=== PATIENT | female | born 1940 | race Caucasian/White ===

== ENCOUNTER 2018-02-09 19:09 | Inpatient (IN) | payer OTHER ==
--- OUTSIDE RECORDS SUMMARY | 2018-02-09 19:13 | XMS REPORT ---
:1940 [facility] [address] [place] [address] Care Team Providers Name Role Phone SERVANDO OAKES Unavailable Unavailable Problems This patient has no known problems. Allergies, Adverse Reactions, Alerts This patient has no known allergies or adverse reactions. Medications This patient has no known medications. Results Test Description Test Time Test Comments Text Results Atomic Results Result Comments POCT-GLUCOSE METER 2017-07-02 12:18:00 Test Item Value Reference Range Comments POC-GLUCOSE METER (BEAKER) (test 111 mg/dL 70-[address] [facility] [address] [place] [address] btsv=7003) [facility] [address] POCT-GLUCOSE [id number] 07:52:00 Test Item Value Reference Range Comments POC-GLUCOSE METER (BEAKER) 125 mg/dL 70-[address] [facility] [address] [place] [address] (test geof=2313) [facility] [address] BASIC METABOLIC [id number] 06:33:00 Test Item Value Reference Range Comments SODIUM (BEAKER) (test 137 meq/L 135-148 hckt=942) POTASSIUM (BEAKER) (test 4.3 meq/L 3.6-5.5 smwm=857) CHLORIDE (BEAKER) (test 102 meq/L 98-106 jlsh=495) CO2 (BEAKER) (test 28 meq/L 20-29 tgsl=302) BLOOD UREA NITROGEN 18 mg/dL 10-26 (BEAKER) (test mhjo=151) CREATININE (BEAKER) (test 0.80 mg/dL 0.50-1.20 kqho=564) GLUCOSE RANDOM (BEAKER) 121 mg/dL 70-110 (test ocre=931) CALCIUM (BEAKER) (test 7.9 mg/dL 8.5-10.5 vyhi=164) EGFR (BEAKER) (test 70 mL/min/1.73 sq m ESTIMATED GFR IS NOT twbr=1262) ACCURATE CREATININE CLEARANCE IN PREDICTING GLOMERULAR FILTRATION RATE. ESTIMATED GFR IS NOT APPLICABLE FOR DIALYSIS PATIENTS. [id number] 06:31:00 Test Item Value Reference Range Comments PHOSPHORUS (BEAKER) (test ugta=740) 2.3 mg/dL 2.5-4.5 CALCIUM, [id number] 06:27:00 Test Item Value Reference Range Comments CALCIUM IONIZED (BEAKER) (test diei=710) 1.11 mmol/L 1.12-1.27 PH, BLOOD (BEAKER) (test ixtq=8474) 7.35 [id number] 06:26:00 Test Item Value Reference Range Comments MAGNESIUM (BEAKER) (test swxy=779) 1.9 mg/dL 1.5-3.0 CBC W/PLT COUNT & AUTO [id number] 06:16:00 Test Item Value Reference Range Comments WHITE BLOOD CELL COUNT (BEAKER) (test axda=252) 8.5 K/ L 4.0-10.0 RED BLOOD CELL COUNT (BEAKER) (test iyjh=015) 2.82 M/ L 4.00-5.00 HEMOGLOBIN (BEAKER) (test lwkt=016) 8.0 GM/DL 12.0-15.0 HEMATOCRIT (BEAKER) (test ztoy=213) 25.2 % 36.0-45.0 MEAN CORPUSCULAR VOLUME (BEAKER) (test llzk=497) 89.5 fL 82.0-99.0 MEAN CORPUSCULAR HEMOGLOBIN (BEAKER) (test 28.3 pg 27.0-33.0 jyjs=190) MEAN CORPUSCULAR HEMOGLOBIN CONC (BEAKER) (test 31.6 GM/DL 32.0-36.0 zeah=231) RED CELL DISTRIBUTION WIDTH (BEAKER) (test 17.1 % 10.3-14.2 jgjq=996) PLATELET COUNT (BEAKER) (test lbff=332) 204 K/CU MM 150-430 MEAN PLATELET VOLUME (BEAKER) (test tlzj=257) 8.2 fL 6.5-10.5 NUCLEATED RED BLOOD CELLS (BEAKER) (test 0 /100 WBC 0-0 vlhf=787) NEUTROPHILS RELATIVE PERCENT (BEAKER) (test 72 % nqqw=538) LYMPHOCYTES RELATIVE PERCENT (BEAKER) (test 16 % krhu=324) MONOCYTES RELATIVE PERCENT (BEAKER) (test 10 % cwyn=399) EOSINOPHILS RELATIVE PERCENT (BEAKER) (test 2 % zwnm=643) BASOPHILS RELATIVE PERCENT (BEAKER) (test 0 % cmvy=874) NEUTROPHILS ABSOLUTE COUNT (BEAKER) (test 6.10 K/ L 1.80-8.00 kslv=334) LYMPHOCYTES ABSOLUTE COUNT (BEAKER) (test 1.30 K/ L 1.48-4.50 nszu=917) MONOCYTES ABSOLUTE COUNT (BEAKER) (test 0.90 K/ L 0.00-1.30 ybvn=089) EOSINOPHILS ABSOLUTE COUNT (BEAKER) (test 0.20 K/ L 0.00-0.50 fpnk=259) BASOPHILS ABSOLUTE COUNT (BEAKER) (test 0.00 K/ L 0.00-0.20 vuxv=035) POCT-GLUCOSE [id number] 20:23:00 Test Item Value Reference Range Comments POC-GLUCOSE METER (BEAKER) 178 mg/dL 70-110 TESTED AT [address] (test spmo=1598) [facility] [address] POCT-GLUCOSE [id number] 16:21:00 Test Item Value Reference Range Comments POC-GLUCOSE METER (BEAKER) 187 mg/dL 70-110 TESTED AT [address] (test ifmx=4323) [facility] [address] POCT-GLUCOSE [id number] 11:50:00 Test Item Value Reference Range Comments POC-GLUCOSE METER (BEAKER) 157 mg/dL 70-110 TESTED AT [address] (test zurd=4118) [facility] [address] POCT-GLUCOSE [id number] 07:41:00 Test Item Value Reference Range Comments POC-GLUCOSE METER (BEAKER) 132 mg/dL 70-110 TESTED AT [address] (test qisy=8020) [facility] [address] BASIC METABOLIC [id number] 06:37:00 Test Item Value Reference Range Comments SODIUM (BEAKER) (test 141 meq/L 135-148 pmbh=983) POTASSIUM (BEAKER) (test 3.4 meq/L 3.6-5.5 eqwa=334) CHLORIDE (BEAKER) (test 104 meq/L 98-106 cvba=338) CO2 (BEAKER) (test 28 meq/L 20-29 clzx=489) BLOOD UREA NITROGEN 20 mg/dL 10-26 (BEAKER) (test taga=868) CREATININE (BEAKER) (test 0.80 mg/dL 0.50-1.20 gqti=379) GLUCOSE RANDOM (BEAKER) 129 mg/dL 70-110 (test iqpi=006) CALCIUM (BEAKER) (test 8.1 mg/dL 8.5-10.5 jlec=188) EGFR (BEAKER) (test 70 mL/min/1.73 sq m ESTIMATED GFR IS NOT mjyf=1724) ACCURATE CREATININE CLEARANCE IN PREDICTING GLOMERULAR FILTRATION RATE. ESTIMATED GFR IS NOT APPLICABLE FOR DIALYSIS PATIENTS. [id number] 06:31:00 Test Item Value Reference Range Comments TRIGLYCERIDES (BEAKER) (test ooye=032) 108 mg/dL TRIGLYCERIDE REFERENCE RANGELow Risk <150Borderline Risk 150-199High Risk 200-499Very High Risk>=[id number] 06:30:00 Test Item Value Reference Range Comments MAGNESIUM (BEAKER) (test objc=276) 1.8 mg/dL 1.5-3.0 [id number] 05:53:00 Test Item Value Reference Range Comments PHOSPHORUS (BEAKER) (test ilrz=703) 2.4 mg/dL 2.5-4.5 CALCIUM, [id number] 05:48:00 Test Item Value Reference Range Comments CALCIUM IONIZED (BEAKER) (test kbdt=352) 1.11 mmol/L 1.12-1.27 PH, BLOOD (BEAKER) (test bpsi=2972) 7.37 CBC W/PLT COUNT & AUTO [id number] 05:45:00 Test Item Value Reference Range Comments WHITE BLOOD CELL COUNT (BEAKER) (test xgoa=752) 9.9 K/ L 4.0-10.0 RED BLOOD CELL COUNT (BEAKER) (test cjwr=543) 2.92 M/ L 4.00-5.00 HEMOGLOBIN (BEAKER) (test sdiy=260) 8.3 GM/DL 12.0-15.0 HEMATOCRIT (BEAKER) (test aevm=361) 26.2 % 36.0-45.0 MEAN CORPUSCULAR VOLUME (BEAKER) (test jkos=005) 89.6 fL 82.0-99.0 MEAN CORPUSCULAR HEMOGLOBIN (BEAKER) (test 28.3 pg 27.0-33.0 dpcu=633) MEAN CORPUSCULAR HEMOGLOBIN CONC (BEAKER) (test 31.6 GM/DL 32.0-36.0 kpkx=517) RED CELL DISTRIBUTION WIDTH (BEAKER) (test 17.2 % 10.3-14.2 laim=199) PLATELET COUNT (BEAKER) (test eybc=841) 236 K/CU MM 150-430 MEAN PLATELET VOLUME (BEAKER) (test qvrh=834) 7.8 fL 6.5-10.5 NUCLEATED RED BLOOD CELLS (BEAKER) (test 0 /100 WBC 0-0 vvnm=869) NEUTROPHILS RELATIVE PERCENT (BEAKER) (test 80 % yoog=433) LYMPHOCYTES RELATIVE PERCENT (BEAKER) (test 13 % olon=814) MONOCYTES RELATIVE PERCENT (BEAKER) (test 6 % pfhh=235) EOSINOPHILS RELATIVE PERCENT (BEAKER) (test 2 % ffwy=137) BASOPHILS RELATIVE PERCENT (BEAKER) (test 0 % latv=933) NEUTROPHILS ABSOLUTE COUNT (BEAKER) (test 7.90 K/ L 1.80-8.00 ugdq=033) LYMPHOCYTES ABSOLUTE COUNT (BEAKER) (test 1.30 K/ L 1.48-4.50 cpgm=187) MONOCYTES ABSOLUTE COUNT (BEAKER) (test 0.50 K/ L 0.00-1.30 jhna=482) EOSINOPHILS ABSOLUTE COUNT (BEAKER) (test 0.20 K/ L 0.00-0.50 noay=161) BASOPHILS ABSOLUTE COUNT (BEAKER) (test 0.00 K/ L 0.00-0.20 rnzw=059) POCT-GLUCOSE [id number] 21:07:00 Test Item Value Reference Range Comments POC-GLUCOSE METER (BEAKER) 124 mg/dL 70-[address] [facility] [address] [place] [address] (test twyo=1721) [address] [facility] [address] POCT-GLUCOSE [id number] 18:02:00 Test Item Value Reference Range Comments POC-GLUCOSE METER (BEAKER) 132 mg/dL 70-[address] [facility] [address] [facility] (test pprl=3219) [facility] [address] POCT-GLUCOSE [id number] 11:53:00 Test Item Value Reference Range Comments POC-GLUCOSE METER (BEAKER) 187 mg/dL 70-[address] [facility] [address] [facility] (test rmaw=3449) [facility] [address] BASIC METABOLIC [id number] 06:04:00 Test Item Value Reference Range Comments SODIUM (BEAKER) (test 144 meq/L 135-148 oidi=098) POTASSIUM (BEAKER) (test 3.2 meq/L 3.6-5.5 occg=693) CHLORIDE (BEAKER) (test 105 meq/L 98-106 wjqd=001) CO2 (BEAKER) (test 27 meq/L 20-29 zrwf=843) BLOOD UREA NITROGEN 26 mg/dL 10-26 (BEAKER) (test qgcr=744) CREATININE (BEAKER) (test 0.90 mg/dL 0.50-1.20 vdaf=610) GLUCOSE RANDOM (BEAKER) 231 mg/dL 70-110 (test vwgi=631) CALCIUM (BEAKER) (test 8.1 mg/dL 8.5-10.5 yztz=799) EGFR (BEAKER) (test 61 mL/min/1.73 sq m ESTIMATED GFR IS NOT njxv=0079) ACCURATE CREATININE CLEARANCE IN PREDICTING GLOMERULAR FILTRATION RATE. ESTIMATED GFR IS NOT APPLICABLE FOR DIALYSIS PATIENTS. [id number] 06:02:00 Test Item Value Reference Range Comments PHOSPHORUS (BEAKER) (test rqcr=866) 3.0 mg/dL 2.5-4.5 CBC W/PLT COUNT & AUTO [id number] 06:01:00 Test Item Value Reference Range Comments WHITE BLOOD CELL COUNT (BEAKER) (test evim=345) 11.7 K/ L 4.0-10.0 RED BLOOD CELL COUNT (BEAKER) (test tkue=304) 2.90 M/ L 4.00-5.00 HEMOGLOBIN (BEAKER) (test asrq=261) 8.2 GM/DL 12.0-15.0 HEMATOCRIT (BEAKER) (test qeki=315) 26.1 % 36.0-45.0 MEAN CORPUSCULAR VOLUME (BEAKER) (test iuts=213) 90.0 fL 82.0-99.0 MEAN CORPUSCULAR HEMOGLOBIN (BEAKER) (test 28.3 pg 27.0-33.0 ldql=795) MEAN CORPUSCULAR HEMOGLOBIN CONC (BEAKER) (test 31.5 GM/DL 32.0-36.0 ocpv=827) RED CELL DISTRIBUTION WIDTH (BEAKER) (test 16.8 % 10.3-14.2 qkfz=337) PLATELET COUNT (BEAKER) (test eget=872) 221 K/CU MM 150-430 MEAN PLATELET VOLUME (BEAKER) (test diel=850) 7.8 fL 6.5-10.5 NUCLEATED RED BLOOD CELLS (BEAKER) (test 0 /100 WBC 0-0 yqwr=209) NEUTROPHILS RELATIVE PERCENT (BEAKER) (test 89 % rmti=920) LYMPHOCYTES RELATIVE PERCENT (BEAKER) (test 9 % jwwq=733) MONOCYTES RELATIVE PERCENT (BEAKER) (test 1 % kpgc=895) EOSINOPHILS RELATIVE PERCENT (BEAKER) (test 1 % dndo=525) BASOPHILS RELATIVE PERCENT (BEAKER) (test 0 % xnnn=962) NEUTROPHILS ABSOLUTE COUNT (BEAKER) (test 10.50 K/ L 1.80-8.00 bntk=260) LYMPHOCYTES ABSOLUTE COUNT (BEAKER) (test 1.00 K/ L 1.48-4.50 vgva=742) MONOCYTES ABSOLUTE COUNT (BEAKER) (test 0.10 K/ L 0.00-1.30 tyxq=051) EOSINOPHILS ABSOLUTE COUNT (BEAKER) (test 0.10 K/ L 0.00-0.50 hvke=806) BASOPHILS ABSOLUTE COUNT (BEAKER) (test 0.00 K/ L 0.00-0.20 pwnb=280) [id number] 05:58:00 Test Item Value Reference Range Comments MAGNESIUM (BEAKER) (test ewdx=790) 2.2 mg/dL 1.5-3.0 CALCIUM, [id number] 05:49:00 Test Item Value Reference Range Comments CALCIUM IONIZED (BEAKER) (test kcka=336) 1.06 mmol/L 1.12-1.27 PH, BLOOD (BEAKER) (test ncmy=6033) 7.39 POCT-GLUCOSE [id number] 00:14:00 Test Item Value Reference Range Comments POC-GLUCOSE METER (BEAKER) 304 mg/dL 70-110 Notified TULIO HOBBS/TESTED AT [facility] (test gfts=7660) [address] [facility] [address] POCT-GLUCOSE [id number] 23:35:00 Test Item Value Reference Range Comments POC-GLUCOSE METER (BEAKER) 272 mg/dL 70-[address] [facility] [address] [facility] (test zjza=7117) [facility] [address] POCT-GLUCOSE [id number] 17:13:00 Test Item Value Reference Range Comments POC-GLUCOSE METER (BEAKER) 199 mg/dL 70-[address] [facility] [address] [facility] (test aunj=2539) [facility] [address] CBC W/PLT COUNT & AUTO [id number] 16:45:00 Test Item Value Reference Range Comments WHITE BLOOD CELL COUNT (BEAKER) (test eobl=414) 12.9 K/ L 4.0-10.0 RED BLOOD CELL COUNT (BEAKER) (test hfak=070) 2.83 M/ L 4.00-5.00 HEMOGLOBIN (BEAKER) (test eqxq=709) 8.0 GM/DL 12.0-15.0 HEMATOCRIT (BEAKER) (test oiuk=473) 25.2 % 36.0-45.0 MEAN CORPUSCULAR VOLUME (BEAKER) (test vamh=514) 89.3 fL 82.0-99.0 MEAN CORPUSCULAR HEMOGLOBIN (BEAKER) (test 28.4 pg 27.0-33.0 wxej=507) MEAN CORPUSCULAR HEMOGLOBIN CONC (BEAKER) (test 31.8 GM/DL 32.0-36.0 clbv=432) RED CELL DISTRIBUTION WIDTH (BEAKER) (test 16.5 % 10.3-14.2 obxn=506) PLATELET COUNT (BEAKER) (test niva=686) 234 K/CU MM 150-430 MEAN PLATELET VOLUME (BEAKER) (test ereo=189) 7.4 fL 6.5-10.5 NUCLEATED RED BLOOD CELLS (BEAKER) (test 0 /100 WBC 0-0 glyd=542) NEUTROPHILS RELATIVE PERCENT (BEAKER) (test 82 % ekwc=958) LYMPHOCYTES RELATIVE PERCENT (BEAKER) (test 10 % tzaw=996) MONOCYTES RELATIVE PERCENT (BEAKER) (test 8 % ueyp=969) EOSINOPHILS RELATIVE PERCENT (BEAKER) (test 0 % onlz=922) BASOPHILS RELATIVE PERCENT (BEAKER) (test 0 % fbzd=366) NEUTROPHILS ABSOLUTE COUNT (BEAKER) (test 10.60 K/ L 1.80-8.00 tobk=169) LYMPHOCYTES ABSOLUTE COUNT (BEAKER) (test 1.20 K/ L 1.48-4.50 xowh=394) MONOCYTES ABSOLUTE COUNT (BEAKER) (test 1.10 K/ L 0.00-1.30 wdqm=344) EOSINOPHILS ABSOLUTE COUNT (BEAKER) (test 0.00 K/ L 0.00-0.50 nbbi=579) BASOPHILS ABSOLUTE COUNT (BEAKER) (test 0.00 K/ L 0.00-0.20 dvdu=760) POCT-GLUCOSE [id number] 15:57:00 Test Item Value Reference Range Comments POC-GLUCOSE METER (BEAKER) 121 mg/dL 70-110 TESTED AT [address] (test tysi=6865) [facility] [address] POCT-GLUCOSE [id number] 14:46:00 Test Item Value Reference Range Comments POC-GLUCOSE METER (BEAKER) 103 mg/dL 70-110 TESTED AT [address] (test bxsm=5363) [facility] [address] POCT-GLUCOSE [id number] 13:15:00 Test Item Value Reference Range Comments POC-GLUCOSE METER (BEAKER) 151 mg/dL 70-110 TESTED AT [address] (test gujd=3155) [facility] [address] POCT-GLUCOSE [id number] 11:30:00 Test Item Value Reference Range Comments POC-GLUCOSE METER (BEAKER) 126 mg/dL 70-110 TESTED AT [address] (test gqnr=6268) [facility] [address] BLOOD GAS, [id number] 11:09:00 Test Item Value Reference Range Comments PH ARTERIAL (BEAKER) (test qocu=343) 7.52 7.35-7.45 PCO2 ARTERIAL (BEAKER) (test nzlx=494) 35 mmHg 35-45 PO2 ARTERIAL (BEAKER) (test gmgf=597) 92 mmHg 80-90 O2 SATURATION ARTERIAL (BEAKER) (test kulo=345) 97.6 % 96.0-97.0 HCO3 ARTERIAL (BEAKER) (test lunn=136) 28 mmol/L 21-29 BASE EXCESS ARTERIAL (BEAKER) (test oxby=952) 5.1 mmol/L -2.0-3.0 PATIENT TEMPERATURE (BEAKER) (test mevq=3091) 37.5 C FIO2 (BEAKER) (test qbjf=8167) 40.0 % POCT-GLUCOSE [id number] 09:44:00 Test Item Value Reference Range Comments POC-GLUCOSE METER (BEAKER) 134 mg/dL 70-[address] [facility] [address] [facility] (test nplp=4531) [address] [facility] [address] TISSUE [id number] 09:34:00Surgical Pathology Report Case: [id number] Authorizing Provider: Genaro Arrington MD Collected: 06/26/2017 1117 Ordering Location: [address] Med/Surg Received: 06/26/2017 1236 Pathologist: Andie Haines MD Specimen: Gallbladder GALLBLADDER, CHOLECYSTECTOMY: - ACUTE GANGRENOUS CHOLECYSTITIS - CHOLELITHIASIS Electronically signed by Andie Haines MD on 2016 at 9:34 AMMG/[id number] cholecystitis Gallbladder Specimen is received without fixative and designated as "gallbladder", consists of a cholecystectomy specimen (9.0 x 4.5 x 1.0 cm) that has been previously opened. In addition, multiple yellow-buitrago fibropurulent debris (9.0 x 9.0 x 1.5 cm) is also within the specimen container. The gallbladder mucosa is green-buitrago with purulent exudate on its surface. The gallbladder mucosa is green-buitrago with areas of white- buitrago purulent exudate. Fragments of gallstones are identified ranging in size from 0.2 cm. Technical Product Manager sections of the gallbladder mucosa, cystic duct and purulent exudate are submitted into A1. MG/ew Sections show gallbladder mucosa and wall with extensive acute inflammation and granulation tissue formation. Necrosis is identified throughout the entire thickness of the wall with surrounding pericholecystic fat necrosis. No dysplasia or malignancy is seen.POCT-GLUCOSE [id number] 07:20:00 Test Item Value Reference Range Comments POC-GLUCOSE METER (BEAKER) 144 mg/dL 70-[address] [facility] [address] [facility] (test ctnr=2289) [facility] [address] BASIC METABOLIC [id number] 05:33:00 Test Item Value Reference Range Comments SODIUM (BEAKER) (test 150 meq/L 135-148 cdzb=460) POTASSIUM (BEAKER) (test 3.0 meq/L 3.6-5.5 mmdm=329) CHLORIDE (BEAKER) (test 110 meq/L 98-106 dqua=278) CO2 (BEAKER) (test 26 meq/L 20-29 rocx=789) BLOOD UREA NITROGEN 34 mg/dL 10-26 (BEAKER) (test jylk=296) CREATININE (BEAKER) (test 1.00 mg/dL 0.50-1.20 mdnz=253) GLUCOSE RANDOM (BEAKER) 140 mg/dL 70-110 (test zkoj=236) CALCIUM (BEAKER) (test 8.2 mg/dL 8.5-10.5 eosp=846) EGFR (BEAKER) (test 54 mL/min/1.73 sq m ESTIMATED GFR IS NOT zkof=2493) ACCURATE CREATININE CLEARANCE IN PREDICTING GLOMERULAR FILTRATION RATE. ESTIMATED GFR IS NOT APPLICABLE FOR DIALYSIS PATIENTS. [id number] 05:23:00 Test Item Value Reference Range Comments PHOSPHORUS (BEAKER) (test gkcj=730) 2.0 mg/dL 2.5-4.5 POCT-GLUCOSE [id number] 05:21:00 Test Item Value Reference Range Comments POC-GLUCOSE METER (BEAKER) 150 mg/dL 70-110 TESTED AT [address] (test pcco=2518) [facility] [address] [id number] 05:20:00 Test Item Value Reference Range Comments POTASSIUM (BEAKER) (test erjv=868) 3.0 meq/L 3.6-5.5 [id number] 05:18:00 Test Item Value Reference Range Comments MAGNESIUM (BEAKER) (test gzdo=158) 2.0 mg/dL 1.5-3.0 CBC W/PLT COUNT & AUTO [id number] 05:05:00 Test Item Value Reference Range Comments WHITE BLOOD CELL COUNT (BEAKER) (test cxbl=382) 12.3 K/ L 4.0-10.0 RED BLOOD CELL COUNT (BEAKER) (test ylgs=174) 2.82 M/ L 4.00-5.00 HEMOGLOBIN (BEAKER) (test uhud=957) 7.9 GM/DL 12.0-15.0 HEMATOCRIT (BEAKER) (test mfos=326) 25.0 % 36.0-45.0 MEAN CORPUSCULAR VOLUME (BEAKER) (test ecpq=110) 88.5 fL 82.0-99.0 MEAN CORPUSCULAR HEMOGLOBIN (BEAKER) (test 28.2 pg 27.0-33.0 snsp=639) MEAN CORPUSCULAR HEMOGLOBIN CONC (BEAKER) (test 31.8 GM/DL 32.0-36.0 jibs=131) RED CELL DISTRIBUTION WIDTH (BEAKER) (test 16.4 % 10.3-14.2 pelb=110) PLATELET COUNT (BEAKER) (test ofwy=276) 225 K/CU MM 150-430 MEAN PLATELET VOLUME (BEAKER) (test mhsr=341) 8.2 fL 6.5-10.5 NUCLEATED RED BLOOD CELLS (BEAKER) (test 0 /100 WBC 0-0 vskm=441) NEUTROPHILS RELATIVE PERCENT (BEAKER) (test 83 % nttl=479) LYMPHOCYTES RELATIVE PERCENT (BEAKER) (test 10 % imic=312) MONOCYTES RELATIVE PERCENT (BEAKER) (test 8 % biei=536) EOSINOPHILS RELATIVE PERCENT (BEAKER) (test 0 % yjzs=682) BASOPHILS RELATIVE PERCENT (BEAKER) (test 0 % wtmz=185) NEUTROPHILS ABSOLUTE COUNT (BEAKER) (test 10.10 K/ L 1.80-8.00 vnmm=445) LYMPHOCYTES ABSOLUTE COUNT (BEAKER) (test 1.20 K/ L 1.48-4.50 dpre=385) MONOCYTES ABSOLUTE COUNT (BEAKER) (test 1.00 K/ L 0.00-1.30 kqye=181) EOSINOPHILS ABSOLUTE COUNT (BEAKER) (test 0.00 K/ L 0.00-0.50 misg=870) BASOPHILS ABSOLUTE COUNT (BEAKER) (test 0.00 K/ L 0.00-0.20 ozww=081) POCT-GLUCOSE [id number] 04:49:00 Test Item Value Reference Range Comments POC-GLUCOSE METER (BEAKER) 150 mg/dL 70-110 TESTED AT [address] (test wpzm=2998) [facility] [id number] BLOOD GAS, [id number] 04:09:00 Test Item Value Reference Range Comments PH ARTERIAL (BEAKER) (test vxbu=042) 7.55 7.35-7.45 PCO2 ARTERIAL (BEAKER) (test tvit=645) 37 mmHg 35-45 PO2 ARTERIAL (BEAKER) (test umbe=460) 70 mmHg 80-90 O2 SATURATION ARTERIAL (BEAKER) (test raap=974) 95.8 % 96.0-97.0 HCO3 ARTERIAL (BEAKER) (test seyg=791) 32 mmol/L 21-29 BASE EXCESS ARTERIAL (BEAKER) (test tupu=674) 8.7 mmol/L -2.0-3.0 PATIENT TEMPERATURE (BEAKER) (test luxc=8072) 37.0 C FIO2 (BEAKER) (test zmoi=1632) 40.0 % POCT-GLUCOSE [id number] 03:08:00 Test Item Value Reference Range Comments POC-GLUCOSE METER (BEAKER) 145 mg/dL 70-110 TESTED AT [address] (test cfnn=8207) [facility] [address] POCT-GLUCOSE [id number] 02:24:00 Test Item Value Reference Range Comments POC-GLUCOSE METER (BEAKER) 159 mg/dL 70-110 TESTED AT [address] (test jtzp=0307) [facility] [address] POCT-GLUCOSE [id number] 01:13:00 Test Item Value Reference Range Comments POC-GLUCOSE METER (BEAKER) 168 mg/dL 70-110 TESTED AT [address] (test ajjv=1526) [facility] [address] POCT-GLUCOSE [id number] 00:35:00 Test Item Value Reference Range Comments POC-GLUCOSE METER (BEAKER) 196 mg/dL 70-110 TESTED AT [address] (test bsgn=7939) [facility] [address] POCT-GLUCOSE [id number] 23:21:00 Test Item Value Reference Range Comments POC-GLUCOSE METER (BEAKER) 183 mg/dL 70-110 TESTED AT [address] (test vizt=7139) [facility] [address] POCT-GLUCOSE [id number] 22:03:00 Test Item Value Reference Range Comments POC-GLUCOSE METER (BEAKER) 185 mg/dL 70-110 TESTED AT [address] (test rkas=0022) [facility] [address] POCT-GLUCOSE [id number] 20:58:00 Test Item Value Reference Range Comments POC-GLUCOSE METER (BEAKER) 186 mg/dL 70-110 TESTED AT [address] (test rycr=0036) [facility] [address] POCT-GLUCOSE [id number] 20:22:00 Test Item Value Reference Range Comments POC-GLUCOSE METER (BEAKER) 145 mg/dL 70-110 TESTED AT [address] (test mptg=4845) [facility] [address] POCT-GLUCOSE [id number] 20:22:00 Test Item Value Reference Range Comments POC-GLUCOSE METER (BEAKER) 120 mg/dL 70-110 TESTED AT [address] (test fdpe=3222) [facility] [address] POCT-GLUCOSE [id number] 20:21:00 Test Item Value Reference Range Comments POC-GLUCOSE METER (BEAKER) 88 mg/dL 70-110 TESTED AT [address] (test nwpd=8102) [facility] [address] POCT-GLUCOSE [id number] 20:20:00 Test Item Value Reference Range Comments POC-GLUCOSE METER (BEAKER) 79 mg/dL 70-110 TESTED AT [address] (test dgju=8821) [facility] [address] POCT-GLUCOSE [id number] 20:20:00 Test Item Value Reference Range Comments POC-GLUCOSE METER (BEAKER) 144 mg/dL 70-110 TESTED AT [address] (test sxog=8829) [facility] [address] POCT-GLUCOSE [id number] 20:20:00 Test Item Value Reference Range Comments POC-GLUCOSE METER (BEAKER) 75 mg/dL 70-110 TESTED AT [address] (test cpsw=5238) [facility] [address] POCT-GLUCOSE [id number] 20:19:00 Test Item Value Reference Range Comments POC-GLUCOSE METER (BEAKER) 69 mg/dL 70-110 TESTED AT [address] (test ucye=0989) [facility] [address] POCT-GLUCOSE [id number] 20:19:00 Test Item Value Reference Range Comments POC-GLUCOSE METER (BEAKER) 84 mg/dL 70-110 TESTED AT [address] (test tqgz=5328) [facility] [address] POCT-GLUCOSE [id number] 20:18:00 Test Item Value Reference Range Comments POC-GLUCOSE METER (BEAKER) 161 mg/dL 70-110 TESTED AT [address] (test rekj=7268) [facility] [address] POCT-GLUCOSE [id number] 20:17:00 Test Item Value Reference Range Comments POC-GLUCOSE METER (BEAKER) 207 mg/dL 70-110 TESTED AT [address] (test mjns=9722) [facility] [address] POCT-GLUCOSE [id number] 20:14:00 Test Item Value Reference Range Comments POC-GLUCOSE METER (BEAKER) 177 mg/dL 70-110 TESTED AT [address] (test jvyi=4761) [facility] [address] POCT-GLUCOSE [id number] 20:13:00 Test Item Value Reference Range Comments POC-GLUCOSE METER (BEAKER) 163 mg/dL 70-110 TESTED AT [address] (test xbgo=5912) [facility] [address] POCT-GLUCOSE [id number] 20:13:00 Test Item Value Reference Range Comments POC-GLUCOSE METER (BEAKER) 174 mg/dL 70-110 TESTED AT [address] (test vzih=5795) [facility] [address] POCT-GLUCOSE [id number] 20:10:00 Test Item Value Reference Range Comments POC-GLUCOSE METER (BEAKER) 160 mg/dL 70-110 TESTED AT [address] (test djvd=5362) [facility] [address] POCT-GLUCOSE [id number] 20:04:00 Test Item Value Reference Range Comments POC-GLUCOSE METER (BEAKER) 107 mg/dL 70-110 TESTED AT [address] (test fmfd=1208) [facility] [address] POCT-GLUCOSE [id number] 20:03:00 Test Item Value Reference Range Comments POC-GLUCOSE METER (BEAKER) 79 mg/dL 70-110 TESTED AT [address] (test unvh=6830) [facility] [address] POCT-GLUCOSE [id number] 20:03:00 Test Item Value Reference Range Comments POC-GLUCOSE METER (BEAKER) 118 mg/dL 70-110 TESTED AT [address] (test mdui=6052) [facility] [address] POCT-GLUCOSE [id number] 20:02:00 Test Item Value Reference Range Comments POC-GLUCOSE METER (BEAKER) 148 mg/dL 70-110 TESTED AT [address] (test rhfm=9686) [facility] [address] POCT-GLUCOSE [id number] 20:02:00 Test Item Value Reference Range Comments POC-GLUCOSE METER (BEAKER) 143 mg/dL 70-110 TESTED AT [address] (test ykhj=3681) [facility] [address] POCT-GLUCOSE [id number] 20:01:00 Test Item Value Reference Range Comments POC-GLUCOSE METER (BEAKER) 142 mg/dL 70-110 TESTED AT [address] (test ruzu=0686) [facility] [address] POCT-GLUCOSE [id number] 20:01:00 Test Item Value Reference Range Comments POC-GLUCOSE METER (BEAKER) 93 mg/dL 70-110 TESTED AT [address] (test shck=1902) [facility] [address] POCT-GLUCOSE [id number] 20:01:00 Test Item Value Reference Range Comments POC-GLUCOSE METER (BEAKER) 87 mg/dL 70-110 TESTED AT [address] (test gkoq=0340) [facility] [address] POCT-GLUCOSE [id number] 19:59:00 Test Item Value Reference Range Comments POC-GLUCOSE METER (BEAKER) 100 mg/dL 70-[address] [facility] [address] [facility] (test pdid=2275) [facility] [address] POCT-GLUCOSE [id number] 19:58:00 Test Item Value Reference Range Comments POC-GLUCOSE METER (BEAKER) 131 mg/dL 70-[address] [facility] [address] [place] [address] (test rqsk=3533) [facility] [address] POCT-GLUCOSE [id number] 19:57:00 Test Item Value Reference Range Comments POC-GLUCOSE METER (BEAKER) 138 mg/dL 70-[address] [facility] [address] [place] [address] (test fkks=8788) [facility] [address] POCT-GLUCOSE [id number] 19:55:00 Test Item Value Reference Range Comments POC-GLUCOSE METER (BEAKER) 149 mg/dL 70-[address] [facility] [address] [place] [address] (test dfpe=8274) [facility] [address] POCT-GLUCOSE [id number] 19:55:00 Test Item Value Reference Range Comments POC-GLUCOSE METER (BEAKER) 154 mg/dL 70-[address] [facility] [address] [place] [address] (test smuq=2394) [facility] [address] SPUTUM CULTURE + GRAM [id number] 10:30:00 Test Item Value Reference Range Comments CULTURE (BEAKER) (test 2+ Normal respiratory albina khcs=1530) present GRAM STAIN RESULT (BEAKER) 2+ White blood cells seen (test wgmd=9933) GRAM STAIN RESULT (BEAKER) 0-5 epithelial cells (test ibid=31617) GRAM STAIN RESULT (BEAKER) 1+ gram positive cocci in (test hwnm=91095) chains, pairs and clusters BLOOD GAS, [id number] 06:36:00 Test Item Value Reference Range Comments PH ARTERIAL (BEAKER) (test sfmw=995) 7.54 7.35-7.45 PCO2 ARTERIAL (BEAKER) (test hfkq=860) 32 mm Hg 35-45 PO2 ARTERIAL (BEAKER) (test stat=824) 123 mm Hg 80-90 O2 SATURATION ARTERIAL (BEAKER) (test frxn=234) 98.8 % 96.0-97.0 HCO3 ARTERIAL (BEAKER) (test rujq=884) 26 mmol/L 21-29 BASE EXCESS ARTERIAL (BEAKER) (test kzpl=673) 3.8 mmol/L -2.0-3.0 CBC W/PLT COUNT & AUTO [id number] 06:16:00 Test Item Value Reference Range Comments WHITE BLOOD CELL COUNT (BEAKER) (test ceyb=927) 14.8 K/ L 4.0-10.0 RED BLOOD CELL COUNT (BEAKER) (test mfcp=502) 2.73 M/ L 4.00-5.00 HEMOGLOBIN (BEAKER) (test jocn=977) 7.7 GM/DL 12.0-15.0 HEMATOCRIT (BEAKER) (test amvw=316) 23.9 % 36.0-45.0 MEAN CORPUSCULAR VOLUME (BEAKER) (test gwib=884) 87.5 fL 82.0-99.0 MEAN CORPUSCULAR HEMOGLOBIN (BEAKER) (test 28.2 pg 27.0-33.0 jelf=457) MEAN CORPUSCULAR HEMOGLOBIN CONC (BEAKER) (test 32.3 GM/DL 32.0-36.0 ajyf=847) RED CELL DISTRIBUTION WIDTH (BEAKER) (test 15.7 % 10.3-14.2 myop=214) PLATELET COUNT (BEAKER) (test tnkw=131) 227 K/CU MM 150-430 MEAN PLATELET VOLUME (BEAKER) (test ubyp=790) 7.8 fL 6.5-10.5 NUCLEATED RED BLOOD CELLS (BEAKER) (test 0 /100 WBC 0-0 lnya=499) NEUTROPHILS RELATIVE PERCENT (BEAKER) (test 85 % mebr=819) LYMPHOCYTES RELATIVE PERCENT (BEAKER) (test 7 % twnk=385) MONOCYTES RELATIVE PERCENT (BEAKER) (test 8 % lvpo=680) EOSINOPHILS RELATIVE PERCENT (BEAKER) (test 0 % pxid=947) BASOPHILS RELATIVE PERCENT (BEAKER) (test 0 % kzmy=641) NEUTROPHILS ABSOLUTE COUNT (BEAKER) (test 12.60 K/ L 1.80-8.00 xujf=902) LYMPHOCYTES ABSOLUTE COUNT (BEAKER) (test 1.00 K/ L 1.48-4.50 rijg=622) MONOCYTES ABSOLUTE COUNT (BEAKER) (test 1.20 K/ L 0.00-1.30 tdwk=291) EOSINOPHILS ABSOLUTE COUNT (BEAKER) (test 0.00 K/ L 0.00-0.50 ppti=230) BASOPHILS ABSOLUTE COUNT (BEAKER) (test 0.00 K/ L 0.00-0.20 jeuf=609) [id number] 06:04:00 Test Item Value Reference Range Comments MAGNESIUM (BEAKER) (test qiai=969) 1.9 mg/dL 1.5-3.0 [id number] 06:04:00 Test Item Value Reference Range Comments PHOSPHORUS (BEAKER) (test yrve=254) 2.1 mg/dL 2.5-4.5 BASIC METABOLIC [id number] 06:03:00 Test Item Value Reference Range Comments SODIUM (BEAKER) (test 146 meq/L 135-148 yxig=786) POTASSIUM (BEAKER) (test 3.6 meq/L 3.6-5.5 dkqd=411) CHLORIDE (BEAKER) (test 107 meq/L 98-106 lztg=089) CO2 (BEAKER) (test 26 meq/L 20-29 xuxh=096) BLOOD UREA NITROGEN 41 mg/dL 10-26 (BEAKER) (test iuvq=463) CREATININE (BEAKER) (test 1.10 mg/dL 0.50-1.20 heqz=020) GLUCOSE RANDOM (BEAKER) 64 mg/dL 70-110 (test abmd=560) CALCIUM (BEAKER) (test 8.4 mg/dL 8.5-10.5 kudd=665) EGFR (BEAKER) (test 48 mL/min/1.73 sq m ESTIMATED GFR IS NOT sary=2584) ACCURATE CREATININE CLEARANCE IN PREDICTING GLOMERULAR FILTRATION RATE. ESTIMATED GFR IS NOT APPLICABLE FOR DIALYSIS PATIENTS. POCT-GLUCOSE [id number] 14:08:00 Test Item Value Reference Range Comments POC-GLUCOSE METER (BEAKER) 91 mg/dL 70-110 TESTED AT [address] (test wbgi=1217) [facility] [address] POCT-GLUCOSE [id number] 13:06:00 Test Item Value Reference Range Comments POC-GLUCOSE METER (BEAKER) 99 mg/dL 70-110 TESTED AT [address] (test ahbp=3573) [facility] [address] POCT-GLUCOSE [id number] 12:06:00 Test Item Value Reference Range Comments POC-GLUCOSE METER (BEAKER) 120 mg/dL 70-110 TESTED AT [address] (test pjaj=9070) [facility] [address] POCT-GLUCOSE [id number] 11:10:00 Test Item Value Reference Range Comments POC-GLUCOSE METER (BEAKER) 130 mg/dL 70-110 TESTED AT [address] (test yrbe=7721) [facility] [address] POCT-GLUCOSE [id number] 10:10:00 Test Item Value Reference Range Comments POC-GLUCOSE METER (BEAKER) 127 mg/dL 70-110 TESTED AT [address] (test zddw=1766) [facility] [address] POCT-GLUCOSE [id number] 09:11:00 Test Item Value Reference Range Comments POC-GLUCOSE METER (BEAKER) 138 mg/dL 70-110 TESTED AT [address] (test tpvh=6464) [facility] [address] POCT-GLUCOSE [id number] 08:07:00 Test Item Value Reference Range Comments POC-GLUCOSE METER (BEAKER) 154 mg/dL 70-110 TESTED AT [address] (test wypy=9033) [facility] [address] POCT-GLUCOSE [id number] 07:03:00 Test Item Value Reference Range Comments POC-GLUCOSE METER (BEAKER) 166 mg/dL 70-110 TESTED AT [address] (test ttyl=5755) [facility] [address] BASIC METABOLIC [id number] 06:43:00 Test Item Value Reference Range Comments SODIUM (BEAKER) (test 142 meq/L 135-148 awla=747) POTASSIUM (BEAKER) (test 4.0 meq/L 3.6-5.5 lcku=780) CHLORIDE (BEAKER) (test 103 meq/L 98-106 slkr=735) CO2 (BEAKER) (test 24 meq/L 20-29 atld=772) BLOOD UREA NITROGEN 44 mg/dL 10-26 (BEAKER) (test nqmt=778) CREATININE (BEAKER) (test 1.20 mg/dL 0.50-1.20 yfvd=212) GLUCOSE RANDOM (BEAKER) 157 mg/dL 70-110 (test qezn=316) CALCIUM (BEAKER) (test 8.3 mg/dL 8.5-10.5 kcbc=853) EGFR (BEAKER) (test 44 mL/min/1.73 sq m ESTIMATED GFR IS NOT uutp=1622) ACCURATE CREATININE CLEARANCE IN PREDICTING GLOMERULAR FILTRATION RATE. ESTIMATED GFR IS NOT APPLICABLE FOR DIALYSIS PATIENTS. BLOOD GAS, [id number] 06:03:00 Test Item Value Reference Range Comments PH ARTERIAL (BEAKER) (test diwg=014) 7.42 7.35-7.45 PCO2 ARTERIAL (BEAKER) (test xdsn=720) 47 mmHg 35-45 PO2 ARTERIAL (BEAKER) (test zgib=554) 115 mmHg 80-90 O2 SATURATION ARTERIAL (BEAKER) (test plyg=529) 98.2 % 96.0-97.0 HCO3 ARTERIAL (BEAKER) (test ijii=138) 29 mmol/L 21-29 BASE EXCESS ARTERIAL (BEAKER) (test uuxg=172) 4.2 mmol/L -2.0-3.0 PATIENT TEMPERATURE (BEAKER) (test zzos=1690) 37.3 C FIO2 (BEAKER) (test nrvm=8718) 100.0 % CBC W/PLT COUNT & AUTO [id number] 05:57:00 Test Item Value Reference Range Comments WHITE BLOOD CELL COUNT (BEAKER) (test vceu=080) 23.7 K/ L 4.0-10.0 RED BLOOD CELL COUNT (BEAKER) (test lzsk=811) 2.71 M/ L 4.00-5.00 HEMOGLOBIN (BEAKER) (test qerc=612) 7.5 GM/DL 12.0-15.0 HEMATOCRIT (BEAKER) (test ygjg=700) 23.7 % 36.0-45.0 MEAN CORPUSCULAR VOLUME (BEAKER) (test aowm=911) 87.5 fL 82.0-99.0 MEAN CORPUSCULAR HEMOGLOBIN (BEAKER) (test 27.6 pg 27.0-33.0 ulcl=228) MEAN CORPUSCULAR HEMOGLOBIN CONC (BEAKER) (test 31.6 GM/DL 32.0-36.0 fqow=858) RED CELL DISTRIBUTION WIDTH (BEAKER) (test 16.0 % 10.3-14.2 swfj=931) PLATELET COUNT (BEAKER) (test zjnl=320) 421 K/CU MM 150-430 MEAN PLATELET VOLUME (BEAKER) (test nrlk=816) 6.7 fL 6.5-10.5 NUCLEATED RED BLOOD CELLS (BEAKER) (test 0 /100 WBC 0-0 zrib=410) NEUTROPHILS RELATIVE PERCENT (BEAKER) (test 92 % erjw=575) LYMPHOCYTES RELATIVE PERCENT (BEAKER) (test 4 % pjzk=922) MONOCYTES RELATIVE PERCENT (BEAKER) (test 4 % shta=127) EOSINOPHILS RELATIVE PERCENT (BEAKER) (test 0 % dtvv=659) BASOPHILS RELATIVE PERCENT (BEAKER) (test 0 % tcdl=793) NEUTROPHILS ABSOLUTE COUNT (BEAKER) (test 21.80 K/ L 1.80-8.00 wtoj=657) LYMPHOCYTES ABSOLUTE COUNT (BEAKER) (test 1.00 K/ L 1.48-4.50 nash=134) MONOCYTES ABSOLUTE COUNT (BEAKER) (test 0.90 K/ L 0.00-1.30 knai=833) EOSINOPHILS ABSOLUTE COUNT (BEAKER) (test 0.00 K/ L 0.00-0.50 zyuz=120) BASOPHILS ABSOLUTE COUNT (BEAKER) (test 0.10 K/ L 0.00-0.20 hohc=877) (MANUAL DIFFERENTIAL)2017-06-27 05:57:00 Test Item Value Reference Range Comments NEUTROPHILS - REL (DIFF) (BEAKER) (test 89 % oijo=3030) LYMPHOCYTES - REL (DIFF) (BEAKER) (test 5 % xuym=0837) MONOCYTES - REL (DIFF) (BEAKER) (test lgfe=2585) 4 % BANDS - REL (DIFF) (BEAKER) (test ckxw=2746) 2 % 0-10 NEUTROPHILS - ABS (DIFF) (BEAKER) (test 21.09 K/ L 1.80-8.00 yezz=3593) LYMPHOCYTES - ABS (DIFF) (BEAKER) (test 1.19 K/ L 1.48-4.50 csok=7890) MONOCYTES - ABS (DIFF) (BEAKER) (test qmyx=7175) 0.95 K/ L 0.00-1.30 BANDS-ABS (DIFF) (BEAKER) (test qdbr=5320) 0.5 K/ L 0.0-0.8 TOTAL COUNTED (BEAKER) (test etuy=0821) 100 BANDS + SEGMENTED NEUTROPHILS (BEAKER) (test 21.57 omrv=0849) WBC MORPHOLOGY (BEAKER) (test wsvd=989) Normal PLT MORPHOLOGY (BEAKER) (test cump=698) Normal ANISOCYTOSIS (BEAKER) (test vzas=686) 1+ few HYPOCHROMIA (BEAKER) (test wgmg=258) 2+ moderate B-TYPE NATRIURETIC FACTOR (BNP)2017-06-27 05:42:00 Test Item Value Reference Range Comments B-TYPE NATRIURETIC PEPTIDE (BEAKER) (test 159 pg/mL 0-100 tley=761) [id number] 05:34:00 Test Item Value Reference Range Comments PHOSPHORUS (BEAKER) (test cyzi=115) 3.1 mg/dL 2.5-4.5 LACTIC ACID, VENOUS, WHOLE [id number] 05:31:00 Test Item Value Reference Range Comments LACTATE BLOOD VENOUS (2) (BEAKER) (test 0.9 mmol/L 0.5-2.2 aufk=6639) Effective 03/19/2016: Units/Reference Range ChangeNew: 0.5-2.2 mmol/L Previous: 5 -18 mg/[id number] 05:29:00 Test Item Value Reference Range Comments MAGNESIUM (BEAKER) (test vasb=999) 1.9 mg/dL 1.5-3.0 POCT-GLUCOSE [id number] 05:03:00 Test Item Value Reference Range Comments POC-GLUCOSE METER (BEAKER) 196 mg/dL 70-110 TESTED AT [address] (test raiw=0403) [facility] [address] POCT-GLUCOSE [id number] 04:03:00 Test Item Value Reference Range Comments POC-GLUCOSE METER (BEAKER) 187 mg/dL 70-110 TESTED AT [address] (test xwdr=9552) [facility] [address] POCT-GLUCOSE [id number] 03:05:00 Test Item Value Reference Range Comments POC-GLUCOSE METER (BEAKER) 174 mg/dL 70-110 TESTED AT [address] (test rppv=6774) [place] [id number] POCT-GLUCOSE [id number] 02:05:00 Test Item Value Reference Range Comments POC-GLUCOSE METER (BEAKER) 201 mg/dL 70-110 TESTED AT [address] (test spxq=1917) [facility] [address] POCT-GLUCOSE [id number] 01:04:00 Test Item Value Reference Range Comments POC-GLUCOSE METER (BEAKER) 196 mg/dL 70-110 TESTED AT [address] (test mbpu=2248) [facility] [address] POCT-GLUCOSE [id number] 00:10:00 Test Item Value Reference Range Comments POC-GLUCOSE METER (BEAKER) 228 mg/dL 70-110 TESTED AT [address] (test qgae=0189) [facility] [address] POCT-GLUCOSE [id number] 23:07:00 Test Item Value Reference Range Comments POC-GLUCOSE METER (BEAKER) 176 mg/dL 70-110 TESTED AT [address] (test kdkd=6438) [facility] [address] POCT-GLUCOSE [id number] 22:17:00 Test Item Value Reference Range Comments POC-GLUCOSE METER (BEAKER) 156 mg/dL 70-110 TESTED AT [address] (test kzqu=8476) [facility] [address] POCT-GLUCOSE [id number] 21:05:00 Test Item Value Reference Range Comments POC-GLUCOSE METER (BEAKER) 203 mg/dL 70-110 TESTED AT [address] (test mmxd=7068) [facility] [address] POCT-GLUCOSE [id number] 21:05:00 Test Item Value Reference Range Comments POC-GLUCOSE METER (BEAKER) 207 mg/dL 70-110 TESTED AT [address] (test fbpk=9105) [facility] [address] POCT-GLUCOSE [id number] 18:14:00 Test Item Value Reference Range Comments POC-GLUCOSE METER (BEAKER) 232 mg/dL 70-110 TESTED AT [address] (test zdmr=8880) [facility] [address] LACTIC ACID, VENOUS, WHOLE [id number] 16:55:00 Test Item Value Reference Range Comments LACTATE BLOOD VENOUS (2) (BEAKER) (test 2.6 mmol/L 0.5-2.2 uqak=5965) Effective 03/19/2016: Units/Reference Range ChangeNew: 0.5-2.2 mmol/L Previous: 5 -18 mg/dLPROTHROMBIN [id number] 16:54:00 Test Item Value Reference Range Comments PROTIME (BEAKER) (test rfmy=935) 16.3 seconds 9.3-12.0 INR (BEAKER) (test gief=294) 1.5 <=5.9 RECOMMENDED COUMADIN/WARFARIN INR THERAPY RANGESSTANDARD DOSE: 2.0 - 3.0 Includes: PROPHYLAXIS forvenous thrombosis, systemic embolization; TREATMENT for venous thrombosis and/or pulmonary embolus.HIGH RISK: Target INR is 2.5-3.5 for patients with mechanical heart valves.POCT-GLUCOSE [id number] 16:46:00 Test Item Value Reference Range Comments POC-GLUCOSE METER (BEAKER) 309 mg/dL 70-110 TESTED AT [address] (test hdjg=0381) [address] [facility] [address] [id number] 14:50:00 Test Item Value Reference Range Comments MAGNESIUM (BEAKER) (test emsg=603) 2.1 mg/dL 1.5-3.0 COMPREHENSIVE METABOLIC [id number] 14:44:00 Test Item Value Reference Range Comments TOTAL PROTEIN (BEAKER) 5.5 gm/dL 6.0-8.5 (test uuma=546) ALBUMIN (BEAKER) (test 2.5 g/dL 3.5-5.0 fvch=0707) ALKALINE PHOSPHATASE 128 U/L 30-115 (BEAKER) (test iqgs=855) BILIRUBIN TOTAL (BEAKER) 0.6 mg/dL 0.1-1.2 (test wumb=318) SODIUM (BEAKER) (test 130 meq/L 135-148 cuxy=735) POTASSIUM (BEAKER) (test 3.9 meq/L 3.6-5.5 mljv=076) CHLORIDE (BEAKER) (test 95 meq/L 98-106 hbye=693) CO2 (BEAKER) (test 28 meq/L 20-29 kxoe=674) BLOOD UREA NITROGEN 40 mg/dL 10-26 (BEAKER) (test apbj=650) CREATININE (BEAKER) (test 1.10 mg/dL 0.50-1.20 wdku=394) GLUCOSE RANDOM (BEAKER) 446 mg/dL 70-110 (test dnmb=982) CALCIUM (BEAKER) (test 8.5 mg/dL 8.5-10.5 gxba=172) AST (SGOT) (BEAKER) (test 50 U/L 5-40 sngm=088) ALT (SGPT) (BEAKER) (test 45 U/L 5-50 rwjg=909) EGFR (BEAKER) (test 48 mL/min/1.73 sq m ESTIMATED GFR IS NOT lnjg=6946) ACCURATE CREATININE CLEARANCE IN PREDICTING GLOMERULAR FILTRATION RATE. ESTIMATED GFR IS NOT APPLICABLE FOR DIALYSIS PATIENTS. [id number] 14:24:00 Test Item Value Reference Range Comments PHOSPHORUS (BEAKER) (test gqad=118) 2.7 mg/dL 2.5-4.5 BLOOD GAS, [id number] 14:07:00 Test Item Value Reference Range Comments PH ARTERIAL (BEAKER) (test igyv=047) 7.41 7.35-7.45 PCO2 ARTERIAL (BEAKER) (test dewl=820) 49 mmHg 35-45 PO2 ARTERIAL (BEAKER) (test utzn=166) 70 mmHg 80-90 O2 SATURATION ARTERIAL (BEAKER) (test vbck=243) 93.9 % 96.0-97.0 HCO3 ARTERIAL (BEAKER) (test pneg=223) 30 mmol/L 21-29 BASE EXCESS ARTERIAL (BEAKER) (test eacw=427) 4.8 mmol/L -2.0-3.0 PATIENT TEMPERATURE (BEAKER) (test culx=8982) 37.0 C FIO2 (BEAKER) (test ikrx=7775) 50.0 % POCT-GLUCOSE [id number] 14:02:00 Test Item Value Reference Range Comments POC-GLUCOSE METER (BEAKER) 336 mg/dL 70-110 TESTED AT [address] (test ztav=0310) [address] [facility] [address] POCT-GLUCOSE [id number] 13:38:00 Test Item Value Reference Range Comments POC-GLUCOSE METER (BEAKER) 363 mg/dL 70-[address] [facility] [address] [place] (test mlvy=6922) [address] [facility] [address] CBC W/PLT COUNT & AUTO [id number] 13:18:00 Test Item Value Reference Range Comments WHITE BLOOD CELL COUNT (BEAKER) (test bzwl=607) 10.5 K/ L 4.0-10.0 RED BLOOD CELL COUNT (BEAKER) (test eagk=419) 3.22 M/ L 4.00-5.00 HEMOGLOBIN (BEAKER) (test djam=135) 8.9 GM/DL 12.0-15.0 HEMATOCRIT (BEAKER) (test vywk=680) 27.7 % 36.0-45.0 MEAN CORPUSCULAR VOLUME (BEAKER) (test bcel=292) 86.2 fL 82.0-99.0 MEAN CORPUSCULAR HEMOGLOBIN (BEAKER) (test 27.5 pg 27.0-33.0 ffqg=451) MEAN CORPUSCULAR HEMOGLOBIN CONC (BEAKER) (test 31.9 GM/DL 32.0-36.0 krsj=615) RED CELL DISTRIBUTION WIDTH (BEAKER) (test 15.6 % 10.3-14.2 jrxv=734) PLATELET COUNT (BEAKER) (test bzmo=747) 311 K/CU MM 150-430 MEAN PLATELET VOLUME (BEAKER) (test ofjt=460) 7.8 fL 6.5-10.5 NUCLEATED RED BLOOD CELLS (BEAKER) (test 0 /100 WBC 0-0 jghx=596) NEUTROPHILS RELATIVE PERCENT (BEAKER) (test 88 % mtsh=155) LYMPHOCYTES RELATIVE PERCENT (BEAKER) (test 9 % cnub=940) MONOCYTES RELATIVE PERCENT (BEAKER) (test 4 % nymj=083) EOSINOPHILS RELATIVE PERCENT (BEAKER) (test 0 % ohht=451) BASOPHILS RELATIVE PERCENT (BEAKER) (test 0 % wabu=867) NEUTROPHILS ABSOLUTE COUNT (BEAKER) (test 9.20 K/ L 1.80-8.00 tiqh=101) LYMPHOCYTES ABSOLUTE COUNT (BEAKER) (test 0.90 K/ L 1.48-4.50 noht=119) MONOCYTES ABSOLUTE COUNT (BEAKER) (test 0.40 K/ L 0.00-1.30 qwyx=078) EOSINOPHILS ABSOLUTE COUNT (BEAKER) (test 0.00 K/ L 0.00-0.50 juza=073) BASOPHILS ABSOLUTE COUNT (BEAKER) (test 0.00 K/ L 0.00-0.20 ghdv=136) BLOOD GAS, [id number] 13:11:00 Test Item Value Reference Range Comments PH ARTERIAL (BEAKER) (test obrl=021) 7.48 7.35-7.45 PCO2 ARTERIAL (BEAKER) (test hywv=029) 45 mmHg 35-45 PO2 ARTERIAL (BEAKER) (test tydh=326) 111 mmHg 80-90 O2 SATURATION ARTERIAL (BEAKER) (test rwvq=752) 98.3 % 96.0-97.0 HCO3 ARTERIAL (BEAKER) (test luym=426) 33 mmol/L 21-29 BASE EXCESS ARTERIAL (BEAKER) (test uksg=142) 8.8 mmol/L -2.0-3.0 PATIENT TEMPERATURE (BEAKER) (test klvj=9614) 36.8 C FIO2 (BEAKER) (test xght=0341) 60.0 % POCT-GLUCOSE [id number] 12:54:00 Test Item Value Reference Range Comments POC-GLUCOSE METER (BEAKER) 415 mg/dL 70-110 TESTED AT [address] (test jrzp=6009) [facility] [address] POCT-GLUCOSE [id number] 12:54:00 Test Item Value Reference Range Comments POC-GLUCOSE METER (BEAKER) 408 mg/dL 70-110 TESTED AT [address] (test ruhd=1092) [facility] [address] POCT-GLUCOSE [id number] 12:54:00 Test Item Value Reference Range Comments POC-GLUCOSE METER (BEAKER) 420 mg/dL 70-110 TESTED AT [address] (test zbvv=4381) [facility] [address] BLOOD GAS, [id number] 10:34:00 Test Item Value Reference Range Comments PH ARTERIAL (BEAKER) (test uvly=023) 7.45 7.35-7.45 PCO2 ARTERIAL (BEAKER) (test ovkj=981) 45 mmHg 35-45 PO2 ARTERIAL (BEAKER) (test ejjp=267) 281 mmHg 80-90 O2 SATURATION ARTERIAL (BEAKER) (test rogm=266) 99.7 % 96.0-97.0 HCO3 ARTERIAL (BEAKER) (test impp=112) 31 mmol/L 21-29 BASE EXCESS ARTERIAL (BEAKER) (test vymn=483) 6.3 mmol/L -2.0-3.0 PATIENT TEMPERATURE (BEAKER) (test omyo=4177) 37.0 C BASIC METABOLIC [id number] 08:55:00 Test Item Value Reference Range Comments SODIUM (BEAKER) (test 132 mmol/L 135-148 ikmu=978) POTASSIUM (BEAKER) (test 4.4 meq/L 3.6-5.5 qnax=402) CHLORIDE (BEAKER) (test 95 meq/L 98-106 This is a corrected grtd=026) result. Previous result was 103 meq/L on 06/26/2017 at 0635 CDT CO2 (BEAKER) (test 32 meq/L 20-29 lipr=385) BLOOD UREA NITROGEN 36 mg/dL 10-26 (BEAKER) (test qrdd=016) CREATININE (BEAKER) (test 1.10 mg/dL 0.50-1.20 zywm=703) GLUCOSE RANDOM (BEAKER) 553 mg/dL 70-110 (test wpbm=722) CALCIUM (BEAKER) (test 8.6 mg/dL 8.5-10.5 knaw=181) EGFR (BEAKER) (test 48 mL/min/1.73 sq m ESTIMATED GFR IS NOT jgmf=7032) ACCURATE CREATININE CLEARANCE IN PREDICTING GLOMERULAR FILTRATION RATE. ESTIMATED GFR IS NOT APPLICABLE FOR DIALYSIS PATIENTS. POCT-GLUCOSE [id number] 07:54:00 Test Item Value Reference Range Comments POC-GLUCOSE METER (BEAKER) > mg/dL 70-110 OUTSIDE MEASURING RANGETESTED AT (test efot=9832) [address] [address] POCT-GLUCOSE [id number] 07:25:00 Test Item Value Reference Range Comments POC-GLUCOSE METER (BEAKER) 458 mg/dL 70-110 TESTED AT [address] (test hrxa=5446) [facility] [address] [id number] 05:42:00 Test Item Value Reference Range Comments PHOSPHORUS (BEAKER) (test zppn=747) 3.0 mg/dL 2.5-4.5 [id number] 05:38:00 Test Item Value Reference Range Comments MAGNESIUM (BEAKER) (test kwuc=765) 1.8 mg/dL 1.5-3.0 POCT-GLUCOSE [id number] 00:17:00 Test Item Value Reference Range Comments POC-GLUCOSE METER (BEAKER) 487 mg/dL 70-110 TESTED AT [address] (test yfak=8065) [facility] [address] POCT-GLUCOSE [id number] 22:15:00 Test Item Value Reference Range Comments POC-GLUCOSE METER (BEAKER) > mg/dL 70-110 OUTSIDE MEASURING RANGETESTED AT (test zcfo=4479) [address] [address] POCT-GLUCOSE [id number] 17:41:00 Test Item Value Reference Range Comments POC-GLUCOSE METER (BEAKER) 307 mg/dL 70-110 TESTED AT [address] (test beqi=7256) [facility] [address] POCT-GLUCOSE [id number] 12:09:00 Test Item Value Reference Range Comments POC-GLUCOSE METER (BEAKER) 457 mg/dL 70-110 Baby tested Mother ID (test eubr=5589) used/TESTED AT [address] [address] POCT-GLUCOSE [id number] 06:47:00 Test Item Value Reference Range Comments POC-GLUCOSE METER (BEAKER) 480 mg/dL 70-110 Notified TULIO HOBBS/TESTED AT [facility] (test eqpo=3659) [address] [place] [address] COMPREHENSIVE METABOLIC [id number] 06:40:00 Test Item Value Reference Range Comments TOTAL PROTEIN (BEAKER) 6.3 gm/dL 6.0-8.5 (test oeuf=101) ALBUMIN (BEAKER) (test 2.7 g/dL 3.5-5.0 bdpw=0179) ALKALINE PHOSPHATASE 155 U/L 30-115 (BEAKER) (test psqa=680) BILIRUBIN TOTAL (BEAKER) 0.7 mg/dL 0.1-1.2 (test muhl=568) SODIUM (BEAKER) (test 134 meq/L 135-148 cwbl=901) POTASSIUM (BEAKER) (test 3.8 meq/L 3.6-5.5 mjpb=283) CHLORIDE (BEAKER) (test 95 meq/L 98-106 kqww=311) CO2 (BEAKER) (test 29 meq/L 20-29 fjyj=866) BLOOD UREA NITROGEN 34 mg/dL 10-26 (BEAKER) (test kwqq=893) CREATININE (BEAKER) (test 1.10 mg/dL 0.50-1.20 pmht=659) GLUCOSE RANDOM (BEAKER) 503 mg/dL 70-110 (test yrpm=400) CALCIUM (BEAKER) (test 8.7 mg/dL 8.5-10.5 rmuu=704) AST (SGOT) (BEAKER) (test 21 U/L 5-40 cgvu=642) ALT (SGPT) (BEAKER) (test 41 U/L 5-50 lzan=646) EGFR (BEAKER) (test 48 mL/min/1.73 sq m ESTIMATED GFR IS NOT jksn=9536) ACCURATE CREATININE CLEARANCE IN PREDICTING GLOMERULAR FILTRATION RATE. ESTIMATED GFR IS NOT APPLICABLE FOR DIALYSIS PATIENTS. B-TYPE NATRIURETIC FACTOR (BNP)2017-06-25 06:34:00 Test Item Value Reference Range Comments B-TYPE NATRIURETIC PEPTIDE (BEAKER) (test 771 pg/mL 0-100 ceiq=183) [id number] 06:25:00 Test Item Value Reference Range Comments PHOSPHORUS (BEAKER) (test swbo=671) 2.7 mg/dL 2.5-4.5 [id number] 06:20:00 Test Item Value Reference Range Comments MAGNESIUM (BEAKER) (test yljg=514) 1.8 mg/dL 1.5-3.0 CBC W/PLT COUNT & AUTO [id number] 06:07:00 Test Item Value Reference Range Comments WHITE BLOOD CELL COUNT (BEAKER) (test qjxe=824) 7.9 K/ L 4.0-10.0 RED BLOOD CELL COUNT (BEAKER) (test iieg=191) 3.48 M/ L 4.00-5.00 HEMOGLOBIN (BEAKER) (test mglv=947) 9.5 GM/DL 12.0-15.0 HEMATOCRIT (BEAKER) (test myzv=768) 29.8 % 36.0-45.0 MEAN CORPUSCULAR VOLUME (BEAKER) (test mfrk=113) 85.8 fL 82.0-99.0 MEAN CORPUSCULAR HEMOGLOBIN (BEAKER) (test 27.4 pg 27.0-33.0 tcdf=110) MEAN CORPUSCULAR HEMOGLOBIN CONC (BEAKER) (test 31.9 GM/DL 32.0-36.0 slon=227) RED CELL DISTRIBUTION WIDTH (BEAKER) (test 15.4 % 10.3-14.2 kifd=423) PLATELET COUNT (BEAKER) (test ivpt=195) 274 K/CU MM 150-430 MEAN PLATELET VOLUME (BEAKER) (test qfck=199) 7.9 fL 6.5-10.5 NUCLEATED RED BLOOD CELLS (BEAKER) (test 0 /100 WBC 0-0 qeyz=763) NEUTROPHILS RELATIVE PERCENT (BEAKER) (test 93 % yyjx=339) LYMPHOCYTES RELATIVE PERCENT (BEAKER) (test 6 % zuyb=192) MONOCYTES RELATIVE PERCENT (BEAKER) (test 1 % chpb=728) EOSINOPHILS RELATIVE PERCENT (BEAKER) (test 0 % vvot=911) BASOPHILS RELATIVE PERCENT (BEAKER) (test 0 % unrb=075) NEUTROPHILS ABSOLUTE COUNT (BEAKER) (test 7.40 K/ L 1.80-8.00 doqr=684) LYMPHOCYTES ABSOLUTE COUNT (BEAKER) (test 0.50 K/ L 1.48-4.50 vrjz=869) MONOCYTES ABSOLUTE COUNT (BEAKER) (test 0.10 K/ L 0.00-1.30 vyou=412) EOSINOPHILS ABSOLUTE COUNT (BEAKER) (test 0.00 K/ L 0.00-0.50 opay=312) BASOPHILS ABSOLUTE COUNT (BEAKER) (test 0.00 K/ L 0.00-0.20 jxca=461) POCT-GLUCOSE [id number] 00:15:00 Test Item Value Reference Range Comments POC-GLUCOSE METER (BEAKER) 484 mg/dL 70-110 Notified TULIO HOBBS/TESTED AT [facility] (test okve=3223) [address] [facility] [address] POCT-GLUCOSE [id number] 16:48:00 Test Item Value Reference Range Comments POC-GLUCOSE METER (BEAKER) 361 mg/dL 70-110 Notified RN or Patient (test trjr=4433) refused repeat test/TESTED AT [address] [address] POCT-GLUCOSE [id number] 16:48:00 Test Item Value Reference Range Comments POC-GLUCOSE METER (BEAKER) 321 mg/dL 70-110 Notified RN or MD Patient (test lbni=3875) refused repeat test/TESTED AT [address] [address] POCT-GLUCOSE [id number] 06:30:00 Test Item Value Reference Range Comments POC-GLUCOSE METER (BEAKER) 287 mg/dL 70-110 TESTED AT [address] (test vfyk=1150) [facility] [address] POCT-GLUCOSE [id number] 21:02:00 Test Item Value Reference Range Comments POC-GLUCOSE METER (BEAKER) 295 mg/dL 70-110 TESTED AT [address] (test quxx=8745) [facility] [address] POCT-GLUCOSE [id number] 18:37:00 Test Item Value Reference Range Comments POC-GLUCOSE METER (BEAKER) 265 mg/dL 70-110 TESTED AT [address] (test yygg=1303) [facility] [address] POCT-GLUCOSE [id number] 12:29:00 Test Item Value Reference Range Comments POC-GLUCOSE METER (BEAKER) 240 mg/dL 70-110 TESTED AT [address] (test qghy=4747) [facility] [address] COMPREHENSIVE METABOLIC [id number] 06:17:00 Test Item Value Reference Range Comments TOTAL PROTEIN (BEAKER) 5.8 gm/dL 6.0-8.5 (test owjq=672) ALBUMIN (BEAKER) (test 2.5 g/dL 3.5-5.0 mhcl=3999) ALKALINE PHOSPHATASE 200 U/L 30-115 (BEAKER) (test bkub=223) BILIRUBIN TOTAL (BEAKER) 0.6 mg/dL 0.1-1.2 (test pppp=741) SODIUM (BEAKER) (test 136 meq/L 135-148 bvop=797) POTASSIUM (BEAKER) (test 3.8 meq/L 3.6-5.5 mzkb=937) CHLORIDE (BEAKER) (test 102 meq/L 98-106 crsy=138) CO2 (BEAKER) (test 25 meq/L 20-29 ivsr=788) BLOOD UREA NITROGEN 34 mg/dL 10-26 (BEAKER) (test zazj=391) CREATININE (BEAKER) (test 1.10 mg/dL 0.50-1.20 hmkd=444) GLUCOSE RANDOM (BEAKER) 208 mg/dL 70-110 (test pkwc=182) CALCIUM (BEAKER) (test 8.8 mg/dL 8.5-10.5 qsem=233) AST (SGOT) (BEAKER) (test 55 U/L 5-40 creh=807) ALT (SGPT) (BEAKER) (test 67 U/L 5-50 johp=799) EGFR (BEAKER) (test 48 mL/min/1.73 sq m ESTIMATED GFR IS NOT ults=7872) ACCURATE CREATININE CLEARANCE IN PREDICTING GLOMERULAR FILTRATION RATE. ESTIMATED GFR IS NOT APPLICABLE FOR DIALYSIS PATIENTS. POCT-GLUCOSE [id number] 06:06:00 Test Item Value Reference Range Comments POC-GLUCOSE METER (BEAKER) 206 mg/dL 70-110 TESTED AT [address] (test yvmr=6703) [address] [facility] [address] [id number] 06:03:00 Test Item Value Reference Range Comments MAGNESIUM (BEAKER) (test klwq=260) 1.7 mg/dL 1.5-3.0 CBC W/PLT COUNT & AUTO [id number] 06:01:00 Test Item Value Reference Range Comments WHITE BLOOD CELL COUNT (BEAKER) (test wwwt=912) 13.3 K/ L 4.0-10.0 RED BLOOD CELL COUNT (BEAKER) (test rggt=382) 3.40 M/ L 4.00-5.00 HEMOGLOBIN (BEAKER) (test owqe=930) 9.5 GM/DL 12.0-15.0 HEMATOCRIT (BEAKER) (test qivf=351) 29.6 % 36.0-45.0 MEAN CORPUSCULAR VOLUME (BEAKER) (test yzzl=954) 86.9 fL 82.0-99.0 MEAN CORPUSCULAR HEMOGLOBIN (BEAKER) (test 27.9 pg 27.0-33.0 crfy=873) MEAN CORPUSCULAR HEMOGLOBIN CONC (BEAKER) (test 32.1 GM/DL 32.0-36.0 aapz=643) RED CELL DISTRIBUTION WIDTH (BEAKER) (test 15.7 % 10.3-14.2 fhsn=761) PLATELET COUNT (BEAKER) (test jcwp=453) 272 K/CU MM 150-430 MEAN PLATELET VOLUME (BEAKER) (test zkxh=580) 7.7 fL 6.5-10.5 NUCLEATED RED BLOOD CELLS (BEAKER) (test 0 /100 WBC 0-0 fest=542) NEUTROPHILS RELATIVE PERCENT (BEAKER) (test 86 % amgg=288) LYMPHOCYTES RELATIVE PERCENT (BEAKER) (test 5 % iiao=972) MONOCYTES RELATIVE PERCENT (BEAKER) (test 7 % bakx=088) EOSINOPHILS RELATIVE PERCENT (BEAKER) (test 1 % sxqy=355) BASOPHILS RELATIVE PERCENT (BEAKER) (test 0 % xsqs=162) NEUTROPHILS ABSOLUTE COUNT (BEAKER) (test 11.50 K/ L 1.80-8.00 vdvn=744) LYMPHOCYTES ABSOLUTE COUNT (BEAKER) (test 0.70 K/ L 1.48-4.50 qdyx=862) MONOCYTES ABSOLUTE COUNT (BEAKER) (test 0.90 K/ L 0.00-1.30 sehv=798) EOSINOPHILS ABSOLUTE COUNT (BEAKER) (test 0.10 K/ L 0.00-0.50 ycgf=305) BASOPHILS ABSOLUTE COUNT (BEAKER) (test 0.00 K/ L 0.00-0.20 tqyh=224) POCT-GLUCOSE [id number] 21:17:00 Test Item Value Reference Range Comments POC-GLUCOSE METER (BEAKER) 223 mg/dL 70-110 TESTED AT [address] (test okso=7187) [facility] [address] POCT-GLUCOSE [id number] 17:17:00 Test Item Value Reference Range Comments POC-GLUCOSE METER (BEAKER) 231 mg/dL 70-110 TESTED AT [address] (test fltd=9157) [facility] [address] B-TYPE NATRIURETIC FACTOR (BNP)2017-06-22 15:38:00 Test Item Value Reference Range Comments B-TYPE NATRIURETIC PEPTIDE (BEAKER) (test 414 pg/mL 0-100 nkxj=377) POCT-GLUCOSE [id number] 12:15:00 Test Item Value Reference Range Comments POC-GLUCOSE METER (BEAKER) 149 mg/dL 70-[address] [facility] [address] [facility] (test osvy=8401) [facility] [address] POCT-GLUCOSE [id number] 06:38:00 Test Item Value Reference Range Comments POC-GLUCOSE METER (BEAKER) 152 mg/dL 70-[address] [facility] [address] [facility] (test sguh=2739) [facility] [address] CBC W/PLT COUNT & AUTO [id number] 06:25:00 Test Item Value Reference Range Comments WHITE BLOOD CELL COUNT (BEAKER) (test oimn=898) 18.0 K/ L 4.0-10.0 RED BLOOD CELL COUNT (BEAKER) (test omgn=080) 3.47 M/ L 4.00-5.00 HEMOGLOBIN (BEAKER) (test xdwo=806) 9.7 GM/DL 12.0-15.0 HEMATOCRIT (BEAKER) (test ibcq=735) 30.1 % 36.0-45.0 MEAN CORPUSCULAR VOLUME (BEAKER) (test ywzo=396) 86.7 fL 82.0-99.0 MEAN CORPUSCULAR HEMOGLOBIN (BEAKER) (test 27.9 pg 27.0-33.0 zphq=407) MEAN CORPUSCULAR HEMOGLOBIN CONC (BEAKER) (test 32.2 GM/DL 32.0-36.0 duql=221) RED CELL DISTRIBUTION WIDTH (BEAKER) (test 15.4 % 10.3-14.2 eykt=086) PLATELET COUNT (BEAKER) (test lajj=991) 227 K/CU MM 150-430 MEAN PLATELET VOLUME (BEAKER) (test shxp=402) 8.0 fL 6.5-10.5 NUCLEATED RED BLOOD CELLS (BEAKER) (test 0 /100 WBC 0-0 uqzq=843) NEUTROPHILS RELATIVE PERCENT (BEAKER) (test 90 % jfnf=923) LYMPHOCYTES RELATIVE PERCENT (BEAKER) (test 4 % skre=667) MONOCYTES RELATIVE PERCENT (BEAKER) (test 6 % xcyc=149) EOSINOPHILS RELATIVE PERCENT (BEAKER) (test 1 % ooai=844) BASOPHILS RELATIVE PERCENT (BEAKER) (test 0 % zyxx=337) NEUTROPHILS ABSOLUTE COUNT (BEAKER) (test 16.20 K/ L 1.80-8.00 ajgh=333) LYMPHOCYTES ABSOLUTE COUNT (BEAKER) (test 0.60 K/ L 1.48-4.50 jwyu=743) MONOCYTES ABSOLUTE COUNT (BEAKER) (test 1.00 K/ L 0.00-1.30 gaqq=711) EOSINOPHILS ABSOLUTE COUNT (BEAKER) (test 0.10 K/ L 0.00-0.50 clyv=333) BASOPHILS ABSOLUTE COUNT (BEAKER) (test 0.10 K/ L 0.00-0.20 vwdd=916) (MANUAL DIFFERENTIAL)2017-06-22 06:25:00 Test Item Value Reference Range Comments NEUTROPHILS - REL (DIFF) (BEAKER) (test 90 % xchp=1209) LYMPHOCYTES - REL (DIFF) (BEAKER) (test 5 % mlhx=7852) MONOCYTES - REL (DIFF) (BEAKER) (test yzta=1424) 5 % NEUTROPHILS - ABS (DIFF) (BEAKER) (test 16.20 K/ L 1.80-8.00 lelp=9023) LYMPHOCYTES - ABS (DIFF) (BEAKER) (test 0.90 K/ L 1.48-4.50 syxu=9471) MONOCYTES - ABS (DIFF) (BEAKER) (test rcds=7239) 0.90 K/ L 0.00-1.30 TOTAL COUNTED (BEAKER) (test mtmh=1041) 100 WBC MORPHOLOGY (BEAKER) (test ssdh=316) Normal PLT MORPHOLOGY (BEAKER) (test olrl=488) Normal ANISOCYTOSIS (BEAKER) (test bkiy=805) 1+ few COMPREHENSIVE METABOLIC [id number] 06:03:00 Test Item Value Reference Range Comments TOTAL PROTEIN (BEAKER) 6.1 gm/dL 6.0-8.5 Specimen slightly (test bqzw=048) hemolyzed ALBUMIN (BEAKER) (test 2.6 g/dL 3.5-5.0 Specimen slightly sbll=5634) hemolyzed ALKALINE PHOSPHATASE 231 U/L 30-115 (BEAKER) (test qmcu=187) BILIRUBIN TOTAL (BEAKER) 0.6 mg/dL 0.1-1.2 Specimen slightly (test adwo=214) hemolyzed SODIUM (BEAKER) (test 134 meq/L 135-148 jnwl=898) POTASSIUM (BEAKER) (test 4.5 meq/L 3.6-5.5 Specimen slightly emdj=733) hemolyzed CHLORIDE (BEAKER) (test 101 meq/L 98-106 yzwy=320) CO2 (BEAKER) (test 23 meq/L 20-29 qiwb=889) BLOOD UREA NITROGEN 42 mg/dL 10-26 (BEAKER) (test lcac=776) CREATININE (BEAKER) (test 1.10 mg/dL 0.50-1.20 Specimen slightly gcax=942) hemolyzed GLUCOSE RANDOM (BEAKER) 142 mg/dL 70-110 (test kxji=221) CALCIUM (BEAKER) (test 8.6 mg/dL 8.5-10.5 qauo=135) AST (SGOT) (BEAKER) (test 101 U/L 5-40 Specimen slightly yegz=901) hemolyzed ALT (SGPT) (BEAKER) (test 84 U/L 5-50 Specimen slightly lomp=398) hemolyzed EGFR (BEAKER) (test 48 mL/min/1.73 sq m ESTIMATED GFR IS NOT mkiu=1712) ACCURATE CREATININE CLEARANCE IN PREDICTING GLOMERULAR FILTRATION RATE. ESTIMATED GFR IS NOT APPLICABLE FOR DIALYSIS PATIENTS. HEMOGLOBIN [id number] 21:32:00 Test Item Value Reference Range Comments HEMOGLOBIN A1C (BEAKER) (test llnr=642) 9.2 % 4.3-6.1 POCT-GLUCOSE [id number] 21:14:00 Test Item Value Reference Range Comments POC-GLUCOSE METER (BEAKER) 189 mg/dL 70-110 TESTED AT [address] (test kbvs=7945) [address] [facility] [address] CBC W/PLT COUNT & AUTO [id number] 20:24:00 Test Item Value Reference Range Comments WHITE BLOOD CELL COUNT (BEAKER) (test acst=026) 20.3 K/ L 4.0-10.0 RED BLOOD CELL COUNT (BEAKER) (test tkcd=954) 3.37 M/ L 4.00-5.00 HEMOGLOBIN (BEAKER) (test ncgf=920) 9.4 GM/DL 12.0-15.0 HEMATOCRIT (BEAKER) (test ljkj=590) 28.9 % 36.0-45.0 MEAN CORPUSCULAR VOLUME (BEAKER) (test wcsn=325) 85.9 fL 82.0-99.0 MEAN CORPUSCULAR HEMOGLOBIN (BEAKER) (test 27.9 pg 27.0-33.0 yztg=870) MEAN CORPUSCULAR HEMOGLOBIN CONC (BEAKER) (test 32.5 GM/DL 32.0-36.0 gucd=318) RED CELL DISTRIBUTION WIDTH (BEAKER) (test 15.6 % 10.3-14.2 msbu=209) PLATELET COUNT (BEAKER) (test gfoy=243) 329 K/CU MM 150-430 MEAN PLATELET VOLUME (BEAKER) (test fqcd=506) 8.3 fL 6.5-10.5 NUCLEATED RED BLOOD CELLS (BEAKER) (test 0 /100 WBC 0-0 matd=700) NEUTROPHILS RELATIVE PERCENT (BEAKER) (test 87 % dyvb=625) LYMPHOCYTES RELATIVE PERCENT (BEAKER) (test 5 % swkq=687) MONOCYTES RELATIVE PERCENT (BEAKER) (test 8 % fxxu=791) EOSINOPHILS RELATIVE PERCENT (BEAKER) (test 1 % chki=187) BASOPHILS RELATIVE PERCENT (BEAKER) (test 0 % ndad=471) NEUTROPHILS ABSOLUTE COUNT (BEAKER) (test 17.60 K/ L 1.80-8.00 kjwq=321) LYMPHOCYTES ABSOLUTE COUNT (BEAKER) (test 0.90 K/ L 1.48-4.50 sbha=784) MONOCYTES ABSOLUTE COUNT (BEAKER) (test 1.50 K/ L 0.00-1.30 mzyg=637) EOSINOPHILS ABSOLUTE COUNT (BEAKER) (test 0.20 K/ L 0.00-0.50 ujrn=721) BASOPHILS ABSOLUTE COUNT (BEAKER) (test 0.00 K/ L 0.00-0.20 vdkz=299) (MANUAL DIFFERENTIAL)2017-06-21 20:24:00 Test Item Value Reference Range Comments NEUTROPHILS - REL (DIFF) (BEAKER) (test 88 % qixn=0865) LYMPHOCYTES - REL (DIFF) (BEAKER) (test 4 % anxh=6315) MONOCYTES - REL (DIFF) (BEAKER) (test verm=4025) 7 % EOSINOPHILS - REL (DIFF) (BEAKER) (test 1 % tlfs=6857) NEUTROPHILS - ABS (DIFF) (BEAKER) (test 17.86 K/ L 1.80-8.00 sngh=5606) LYMPHOCYTES - ABS (DIFF) (BEAKER) (test 0.81 K/ L 1.48-4.50 flfd=6537) MONOCYTES - ABS (DIFF) (BEAKER) (test kkiz=8042) 1.42 K/ L 0.00-1.30 EOSINOPHILS - ABS (DIFF) (BEAKER) (test 0.20 K/ L 0.00-0.50 gpdr=3604) TOTAL COUNTED (BEAKER) (test qszm=9005) 100 WBC MORPHOLOGY (BEAKER) (test yopt=296) Normal PLT MORPHOLOGY (BEAKER) (test rkpp=493) Normal ANISOCYTOSIS (BEAKER) (test znad=341) 1+ few TROPONIN [id number] 19:38:00 Test Item Value Reference Range Comments TROPONIN I (BEAKER) (test hfwo=363) < ng/mL 0.00-0.15 Troponin I (TnI) levels must be interpreted in the context of the presenting symptoms and the clinical findings. Elevated TnI levels indicate myocardial damage, but are not specific for ischemic heart disease. Elevated TnI levels are seen in patients with other cardiac conditions (including myocarditis and congestive heart failure), and slight TnI elevations occur in patients with other conditions, including sepsis, renal failure, acidosis, acute neurological disease, and persistent tachyarrhythmia.CREATINE KINASE (CK), TOTAL AND [id number] 19:37:00 Test Item Value Reference Range Comments CREATINE KINASE TOTAL (BEAKER) (test vakn=204) 46 U/L 25-235 CREATINE KINASE-MB (BEAKER) (test ijyg=151) 0.9 ng/mL 0.0-4.9 CREATINE KINASE-MB INDEX (BEAKER) (test yjnf=142) 2.0 % CK-MB Reference Range:<5 Normal5-10 Borderline>10 AbnormalCOMPREHENSIVE METABOLIC [id number] 19:35:00 Test Item Value Reference Range Comments TOTAL PROTEIN (BEAKER) 6.0 gm/dL 6.0-8.5 (test icka=721) ALBUMIN (BEAKER) (test 2.5 g/dL 3.5-5.0 wssf=2732) ALKALINE PHOSPHATASE 219 U/L 30-115 (BEAKER) (test flne=847) BILIRUBIN TOTAL (BEAKER) 0.5 mg/dL 0.1-1.2 (test bkpc=195) SODIUM (BEAKER) (test 132 meq/L 135-148 nfeu=970) POTASSIUM (BEAKER) (test 3.8 meq/L 3.6-5.5 ecfl=561) CHLORIDE (BEAKER) (test 101 meq/L 98-106 bfwn=882) CO2 (BEAKER) (test 23 meq/L 20-29 ewow=395) BLOOD UREA NITROGEN 47 mg/dL 10-26 (BEAKER) (test lpzs=974) CREATININE (BEAKER) (test 1.20 mg/dL 0.50-1.20 mrno=358) GLUCOSE RANDOM (BEAKER) 170 mg/dL 70-110 (test wgpj=923) CALCIUM (BEAKER) (test 8.4 mg/dL 8.5-10.5 kpru=457) AST (SGOT) (BEAKER) (test 128 U/L 5-40 ojus=198) ALT (SGPT) (BEAKER) (test 89 U/L 5-50 voaq=180) EGFR (BEAKER) (test 44 mL/min/1.73 sq m ESTIMATED GFR IS NOT fzld=9243) ACCURATE CREATININE CLEARANCE IN PREDICTING GLOMERULAR FILTRATION RATE. ESTIMATED GFR IS NOT APPLICABLE FOR DIALYSIS PATIENTS. LIPID [id number] 19:35:00 Test Item Value Reference Range Comments TRIGLYCERIDES (BEAKER) (test bfxu=650) 110 mg/dL CHOLESTEROL (BEAKER) (test yunk=232) 62 mg/dL HDL CHOLESTEROL (BEAKER) (test jgzl=747) 11 mg/dL LDL CHOLESTEROL CALCULATED (BEAKER) (test 29 mg/dL bonu=007) Triglyceride Reference Range: Low Risk <150 Borderline 150- 199 High Risk 200-499 Very High Risk >=500Cholesterol Reference Range: Low Risk <200 Borderline 200-239 High Risk > 240HDL Cholesterol Reference Range: Low Risk >=60 High Risk <40LDL Cholesterol Reference Range: Optimal <100 Near Optimal 100-129 Borderline 130-159 High 160-189 Very High >=[id number] 19:31:00 Test Item Value Reference Range Comments LIPASE (BEAKER) (test onjs=950) 71 U/L 6-51 [id number] 19:22:00 Test Item Value Reference Range Comments MAGNESIUM (BEAKER) (test gtkt=927) 1.9 mg/dL 1.5-3.0 [id number] 19:22:00 Test Item Value Reference Range Comments AMYLASE (BEAKER) (test pjec=086) 90 U/L 30-110 POCT-GLUCOSE [id number] 17:31:00 Test Item Value Reference Range Comments POC-GLUCOSE METER (BEAKER) 162 mg/dL 70-110 TESTED AT [address] (test lrye=4361) [address] [facility] [address]
[2018-02-09 19:21] LABS: Arterial Blood Carboxyhemoglob 2.7 % (0-1.5); Blood Gas Oxyhemoglobin 93.2 % (94-97); Blood O2 Saturation 96.2 % (92-98.5)
[2018-02-09] MEDS ORDERED: FUROSEMIDE 40 MG/4 ML VIAL ONE (19:32)
[2018-02-09 19:59] LABS: Absolute Lymphocytes (CBC) 0.5 K/uL (0.7-4.9); Absolute Monocytes 0.6 K/uL (0.1-1.3); Absolute Neutrophil 4.7 K/uL (1.8-8.0); Basophils % 0.7 % (0-1.3); Eosinophils % 0.5 % (0-4.4); Hematocrit 31.9 % (36.0-45.0); MCH 26.8 pg (27.0-35.0); MCV 85.2 fL (80-100); MPV 8.2 fL (7.6-11.3); RBC Red Blood Cell Count 3.74 M/uL (3.86-4.86)
[2018-02-09 20:05] LABS: Potassium 4.2 mEq/L (3.6-5.0)
[2018-02-09 20:08] LABS: Albumin 3.9 g/dL (3.2-5.5); Bilirubin Total 0.8 mg/dL (0.3-1.2)
[2018-02-09 20:09] LABS: Urine Blood NEGATIVE (NEG); Urine Glucose NEGATIVE (NEG); Urine Protein NEGATIVE (NEG); Urine Specific Gravity 1.015 (1.005-1.030); Urine pH 5.5 (5.0-7.0)
[2018-02-09 20:24] LABS: Anisocytosis 1+; Blood Morphology Comment NOTED (NOT SEEN); Platelet Estimate ADEQ; Urine White Blood Cell Casts OK
--- NOTE | 2018-02-09 20:32 | RAD REPORT ---
EXAM DESCRIPTION: RAD - Chest Single View - 02/09/2018 7:48 pm CLINICAL HISTORY: Chest pain, shortness of breath COMPARISON: August 2017 TECHNIQUE: AP portable chest image was obtained 1943 hours . FINDINGS: Lung volumes are low. Body habitus limits the examination as well. Mild cardiomegaly is pr esent accentuated by exam limitations. There is mild vascular engorgement. Bilateral pleural effusion s are present with lung base infiltrate and/ or atelectasis. Trachea is midline. No gross bony abnorm ality seen. No acute aortic findings suspected. IMPRESSION: Mild CHF/volume overload pattern with bilateral pleural effusions.
[2018-02-09] MEDS ORDERED: ACETAMINOPHEN 500 MG TAB PO PRN (20:47)
[2018-02-09] MEDS ORDERED: ONDANSETRON 4 MG/2 ML VIAL IV PRN (20:47)
[2018-02-09] MEDS ORDERED: ALBUTEROL 2.5 MG/3 ML NEB SOL NEB PRN (20:47)
[2018-02-09] MEDS: METOPROLOL TAR 50 MG TAB PO SCH (21:00)
--- NOTE | 2018-02-09 21:08 | ER ---
Nurse's Notes [facility] Name: Karishma Torres Age: 77 yrs Sex: Female : 1940 Arrival Date: 02/09/2018 Time: 19:10 Bed 4 Private MD: Diagnosis: acute chf exacerbation Presentation: 02/09 19:01 Presenting complaint: EMS states: they were toned out to [facility] for report of pt bb having SOB all day and chest pain in upper right chest x 3 hours and pt c/o RLQ pain. Pt O2 sats in the 70s on NC at 2 LPM pt was put on Bipap and given albuterol/atrovent breathing treatment and IV was started 22 g to R wrist. Transition of care: patient was received from another setting of care (long-term care facility), [facility]. Onset of symptoms was February 09, 2018. Care prior to arrival: Medication(s) given: Albuterol Neb Atrovent Neb IV initiated. 22 GA, in the right wrist, Glucose check: 212 Oxygen administered. via CPAP or BiPAP. 19:01 Method Of Arrival: EMS: [facility] bb 19:01 Acuity: MARTINEZ 1 bb Historical: - Allergies: 19:25 Bystephen; bb 19:25 Demerol; bb 19:25 Apolonia; bb - Home Meds: 19:25 furosemide 40 mg oral tab 2 times per day [Active]; alprazolam 0.25 mg Oral tab 1 tab 3 bb times per day [Active]; docusate sodium 100 mg Oral cap 1 cap 2 times per day [Active]; cyanocobalamin (vitamin B-12) 5,000 mcg oral TbDL daily [Active]; ferrous sulfate 220 mg (44 mg iron)/5 mL Oral soln twice a day [Active]; Protonix 40 mg Oral TbEC 1 tab once daily [Active]; Aldactone 100 mg Oral tab 1 tab once daily [Active]; Mucinex 600 mg oral Ta12 1 tab every 12 hours [Active]; escitalopram oxalate 10 mg oral tab 1 tab once daily [Active]; melatonin 3 mg Oral tab nightly [Active]; Combivent 18-103 mcg/actuation Inhl aero 1 puffs twice a day [Active]; Miralax 17 gram Oral pwpk 1 packet once daily [Active]; Novolog 100 unit/mL Sub-Q soln [Active]; gabapentin 100 mg oral cap 2 caps 3 times per day [Active]; nystatin 100,000 unit/gram Topical crea 2 times per day [Active]; insulin detemir subcutaneous subcutaneous [Active]; metoprolol tartrate 12.5 mg BID Oral [Active]; atorvastatin 20 mg oral tab 1 tab once daily [Active]; albuterol sulfate 2.5 mg /3 mL (0.083 %) Nebulizer nebu 3 mL every 8 hours [Active]; - PMHx: 19:25 ADD/ADHD; Anemia; Atrial Fib; CHF; chronic kidney disease; Diabetes - IDDM; DVT; bb DYSPHAGIA; End Stage Kidney Disease; High Cholesterol; Hyperlipidemia; Hypertension; insomnia; PE; - Immunization history:: Adult Immunizations up to date. - Social history:: Smoking status: Patient/guardian denies using tobacco. Screenin:50 Abuse screen: Denies threats or abuse. Denies injuries from another. Nutritional tl1 screening: No deficits noted. Tuberculosis screening: No symptoms or risk factors identified. Fall Risk IV access (20 points). Ambulatory Aid- None/Bed Rest/Nurse Assist (0 pts). Gait- Impaired (20 pts.). Assessment: 20:02 General: Appears distressed, obese, Behavior is cooperative, appropriate for age, tl1 anxious. Pain: Denies pain. Neuro: Level of Consciousness is awake, alert, obeys commands, Oriented to person, place, time, situation. Cardiovascular: Reports chest pain, shortness of breath. Cardiovascular: Capillary refill < 3 seconds Patient's skin is warm and dry. Respiratory: Reports shortness of breath labored breathing Respiratory effort is labored, gasping, with retractions, Respiratory pattern is tachypnea Breath sounds are diminished in left lower lobe and left posterior lower lobe the patient has severe shortness of breath. GI: Bowel sounds present X 4 quads. Abd is soft and non tender X 4 quads. : Damico in place. EENT: No signs and/or symptoms were reported regarding the EENT system. Musculoskeletal: Swelling present in right leg and left leg. 20:41 Reassessment: Patient appears in no apparent distress at this time. Patient and/or ao family updated on plan of care and expected duration. Pain level reassessed. Patient is alert, oriented x 3, equal unlabored respirations, skin warm/dry/pink. Waiting on Lab work. 21:50 Reassessment: Patient appears in no apparent distress at this time. Patient and/or ao family updated on plan of care and expected duration. Pain level reassessed. Patient is alert, oriented x 3, equal unlabored respirations, skin warm/dry/pink. Waiting on room assignment. 02/10 00:05 Reassessment: Got a call from Nurse in [address] [facility] that patient was looking for her purse. ao Moon Haro was called and they stated that her purse was left in her room. Primary nurse was called and notified. Vital Signs: 02/09 19:25 BP 143 / 103; Pulse 77; Resp 21 S; Temp 97.9(O); Pulse Ox 94% on BiPAP; Weight 127.01 bb kg (R); Height 5 ft. 5 in. (165.10 cm) (R); Pain 6/10; 19:58 BP 140 / 108; Pulse 77; Resp 23; Pulse Ox 100% on BiPAP; Pain 0/10; tl1 20:41 BP 118 / 57; Pulse 73; Resp 16; Pulse Ox 100% on BiPAP; ao 21:50 BP 135 / 80; Pulse 62; Resp 18; Pulse Ox 100% ; ao 19:25 Body Mass Index 46.59 (127.01 kg, 165.10 cm) bb ED Course: 19:10 Patient arrived in ED. ds1 19:13 Geronimo Watkins MD is Attending Physician. ps1 19:14 Triage completed. bb 19:25 Arm band placed on Patient placed in an exam room, on a stretcher, on monitor technician, bb on pulse oximetry. 19:45 X-ray completed. Portable x-ray completed in exam room. Patient tolerated procedure kc2 well. 19:46 CXR XRAY In Process Unspecified. EDMS 19:48 Inserted saline lock: 20 gauge in left antecubital area, using aseptic technique. Blood tl1 collected. 19:49 Damico cath inserted, using sterile technique, 16 Fr., by ED staff, balloon inflated, to tl1 gravity drainage, urine specimen collected. 19:49 Maintain EMS IV. Dressing intact. Good blood return noted. Site clean \T\ dry. Gauge \T\ tl 1 site: 22 gauge right wrist. 20:03 Rony Hay, RN is Primary Nurse. ao 20:41 Patient has correct armband on for positive identification. equipment monitor phototypesetting on. Pulse ao ox on. NIBP on. 21:07 Mahesh Mary MD is Hospitalizing Provider. ps1 22:49 No provider procedures requiring assistance completed. Patient admitted, IV remains in ao place. Administered Medications: 19:22 Drug: Lasix 40 mg Route: IVP; Infused Over: 3 mins; Site: right wrist; tl1 22:17 Follow up: Response: No adverse reaction ao 22:19 Drug: Rocephin - (cefTRIAXone) 1 grams Route: IVPB; Infused Over: 30 mins; Site: left ao antecubital; 22:50 Follow up: IV Status: Completed infusion; IV Intake: 10ml ao Intake: 22:50 IV: 10ml; Total: 10ml. ao Output: 22:23 Urine: 600ml (Damico); Total: 600ml. ao Outcome: 21:07 Decision to Hospitalize by Provider. ps1 22:49 Admitted to Tele accompanied by tech, room 422, with oxygen, with chart, Report called ao to TULIO Parker 22:49 Condition: stable 22:49 Instructed on discharge instructions, follow up and referral plans. 22:51 Patient left the ED. ao Signatures: Dispatcher [employer] [facility] Guerline Rowan ds1 Ana Palafox RN RN bb Lasagna, Tonya, RN RN tl1 Rony Hay RN RN ao Carr, Kelsie 2 Geronimo Watkins MD MD ps1
--- NOTE | 2018-02-09 21:08 | EDPHYS ---
Physician Documentation [facility] Name: Karishma Torres Age: 77 yrs Sex: Female : 1940 Arrival Date: 02/09/2018 Time: 19:10 Bed 4 Private MD: ED Physician Geronimo Watkins HPI: 02/09 19:13 This 77 yrs old Female presents to ER via Unassigned with complaints of ps1 Shortness Of Breath, Chest Pain. 19:13 The patient has shortness of breath at rest. Onset: The symptoms/episode began/occurred ps1 3 day(s) ago. Duration: The symptoms are intermittent. The patient's shortness of breath is aggravated by exertion, supine position. Severity of symptoms: At their worst the symptoms were moderate. The patient has experienced similar episodes in the past. Pt of Dr. Lala. Hasn't seen him 2/2 financial issues. Patient of Dr. Mary. Was at [place] and had increased WOB. Was put on Bipap on arrival. O2 sats in 80's on 2L. States she took 40mg lasix today. Increased leg swelling. . Historical: - Allergies: 19:25 Byetta; bb 19:25 Demerol; bb 19:25 Apolonia; bb - Home Meds: 19:25 furosemide 40 mg oral tab 2 times per day [Active]; alprazolam 0.25 mg Oral tab 1 tab 3 bb times per day [Active]; docusate sodium 100 mg Oral cap 1 cap 2 times per day [Active]; cyanocobalamin (vitamin B-12) 5,000 mcg oral TbDL daily [Active]; ferrous sulfate 220 mg (44 mg iron)/5 mL Oral soln twice a day [Active]; Protonix 40 mg Oral TbEC 1 tab once daily [Active]; Aldactone 100 mg Oral tab 1 tab once daily [Active]; Mucinex 600 mg oral Ta12 1 tab every 12 hours [Active]; escitalopram oxalate 10 mg oral tab 1 tab once daily [Active]; melatonin 3 mg Oral tab nightly [Active]; Combivent 18-103 mcg/actuation Inhl aero 1 puffs twice a day [Active]; Miralax 17 gram Oral pwpk 1 packet once daily [Active]; Novolog 100 unit/mL Sub-Q soln [Active]; gabapentin 100 mg oral cap 2 caps 3 times per day [Active]; nystatin 100,000 unit/gram Topical crea 2 times per day [Active]; insulin detemir subcutaneous subcutaneous [Active]; metoprolol tartrate 12.5 mg BID Oral [Active]; atorvastatin 20 mg oral tab 1 tab once daily [Active]; albuterol sulfate 2.5 mg /3 mL (0.083 %) Nebulizer nebu 3 mL every 8 hours [Active]; - PMHx: 19:25 ADD/ADHD; Anemia; Atrial Fib; CHF; chronic kidney disease; Diabetes - IDDM; DVT; bb DYSPHAGIA; End Stage Kidney Disease; High Cholesterol; Hyperlipidemia; Hypertension; insomnia; PE; - Immunization history:: Adult Immunizations up to date. - Social history:: Smoking status: Patient/guardian denies using tobacco. ROS: 21:07 Constitutional: Negative for fever, chills, and weight loss, Eyes: Negative for injury, ps1 pain, redness, and discharge, ENT: Negative for injury, pain, and discharge, Neck: Negative for injury, pain, and swelling. 21:07 Abdomen/GI: Negative for abdominal pain, nausea, vomiting, diarrhea, and constipation, Back: Negative for injury and pain, MS/Extremity: Negative for injury and deformity, Skin: Negative for injury, rash, and discoloration, Neuro: Negative for headache, weakness, numbness, tingling, and seizure, Psych: Negative for depression, anxiety, suicide ideation, homicidal ideation, and hallucinations. 21:07 Cardiovascular: Positive for edema, orthopnea, paroxysmal nocturnal dyspnea. 21:07 Respiratory: Positive for dyspnea on exertion, orthopnea, shortness of breath. Exam: 21:07 Constitutional: This is a well developed, well nourished patient who is awake, alert, ps1 and in no acute distress. Head/Face: Normocephalic, atraumatic. Eyes: Pupils equal round and reactive to light, extra-ocular motions intact. Lids and lashes normal. Conjunctiva and sclera are non-icteric and not injected. Neck: Trachea midline, no thyromegaly or masses palpated, and no cervical lymphadenopathy. Supple, full range of motion without nuchal rigidity, or vertebral point tenderness. No Meningismus. Chest/axilla: Normal chest wall appearance and motion. Nontender with no deformity. No lesions are appreciated. Cardiovascular: Regular rate and rhythm. No gallops, murmurs, or rubs. Normal PMI, no JVD. No pulse deficits. 21:07 Back: No spinal tenderness. No costovertebral tenderness. Full range of motion. Skin: Warm, dry with normal turgor. Normal color with no rashes, no lesions, and no evidence of cellulitis. MS/ Extremity: Pulses equal, no cyanosis. Neurovascular intact. Full, normal range of motion. 21:07 Cardiovascular: Edema: 3+ edema to level of left ankle and right ankle. 21:07 Respiratory: mild respiratory distress is noted, Respirations: labored breathing, that is moderate, tachypnea. Vital Signs: 19:25 BP 143 / 103; Pulse 77; Resp 21 S; Temp 97.9(O); Pulse Ox 94% on BiPAP; Weight 127.01 bb kg (R); Height 5 ft. 5 in. (165.10 cm) (R); Pain 6/10; 19:58 BP 140 / 108; Pulse 77; Resp 23; Pulse Ox 100% on BiPAP; Pain 0/10; tl1 20:41 BP 118 / 57; Pulse 73; Resp 16; Pulse Ox 100% on BiPAP; ao 21:50 BP 135 / 80; Pulse 62; Resp 18; Pulse Ox 100% ; ao 19:25 Body Mass Index 46.59 (127.01 kg, 165.10 cm) bb MDM: 19:28 Patient medically screened. ps1 21:07 Differential diagnosis: CHF exacerbation, Chronic Obstructive Pulmonary Disease ps1 Myocardial Infarction pneumonia, pulmonary edema, Sepsis Unstable Angina. Data reviewed: vital signs, nurses notes, lab test result(s), EKG, radiologic studies. Response to treatment: the patient's symptoms have markedly improved after treatment. ED course: Patient responded well to BiPAP. Labs and imaging reviewed and consistent with acute CHF exacerbation. Treated with IV Lasix. Placed in observation to Dr. Mary . 02/09 19:20 Order name: CBC with Diff; Complete Time: 20:44 ps1 02/09 19:20 Order name: CMP; Complete Time: 20:15 ps1 02/09 19:20 Order name: Troponin (emerg Dept Use Only); Complete Time: 20:15 ps1 02/09 19:20 Order name: BNP; Complete Time: 20:15 [facility] 02/09 19:20 Order name: ABG; Complete Time: 21:59 [facility] 02/09 19:53 Order name: Urine Dipstick--Ancillary (enter results) rg2 02/09 19:53 Order name: Urine Dipstick-Ancillary; Complete Time: 20:15 [facility] 02/09 20:04 Order name: CBC Smear Scan; Complete Time: 20:44 [facility] 02/09 20:50 Order name: CBC with Automated Diff [facility] 02/09 20:50 Order name: CBC with Automated Diff [facility] 02/09 20:50 Order name: Comprehensive Metabolic Panel [facility] 02/09 20:50 Order name: Comprehensive Metabolic Panel [facility] 02/09 20:50 Order name: Magnesium [facility] 02/09 20:50 Order name: Magnesium [facility] 02/09 19:20 Order name: BIPAP [facility] 02/09 19:20 Order name: Urine Dipstick-Ancillary (obtain specimen); Complete Time: 19:47 [facility] 02/09 19:20 Order name: Damico; Complete Time: 19:22 [facility] 02/09 19:20 Order name: CXR XRAY; Complete Time: 20:44 [facility] 02/09 19:47 Order name: EKG; Complete Time: 19:47 tl1 02/09 20:50 Order name: CONS Physician Consult [facility] 02/09 20:50 Order name: Echo with Doppler [facility] 02/09 20:50 Order name: Heart Healthy [facility] 02/09 20:50 Order name: Phosphorus [facility] 02/09 20:50 Order name: Phosphorus [facility] 02/09 20:50 Order name: Troponin I [facility] 02/09 20:50 Order name: Troponin I [facility] 02/09 20:51 Order name: Abdomen [facility] 02/09 22:14 Order name: Urine Dipstick-Ancillary; Complete Time: 22:14 [facility] 02/09 19:47 Order name: EKG - Nurse/Tech; Complete Time: 19:47 tl1 EC:12 Rate is 78 beats/min. Rhythm is regular. QRS Elton is Normal. ID interval is normal. QRS ps1 interval is normal. QT interval is normal. Q waves are Old. T waves are Normal. Clinical impression: Abnormal EKG without significant change. Interpreted by me. Administered Medications: 19:22 Drug: Lasix 40 mg Route: IVP; Infused Over: 3 mins; Site: right wrist; tl1 22:17 Follow up: Response: No adverse reaction ao 22:19 Drug: Rocephin - (cefTRIAXone) 1 grams Route: IVPB; Infused Over: 30 mins; Site: left ao antecubital; 22:50 Follow up: IV Status: Completed infusion; IV Intake: 10ml ao Disposition: 02/09/18 21:07 Hospitalization ordered by Mahesh Mary for Observation. Preliminary diagnosis is acute chf exacerbation. - Bed requested for Telemetry/MedSurg (observation). - Status is Observation. ao - Condition is Fair. - Problem is an acute exacerbation. - Symptoms have improved. UTI on Admission? No Signatures: Dispatcher [employer] EDJaqueline Fan rg2 Ana Palafox RN RN Lisset Woodson RN RN tl1 Rony Hay RN RN ao Singer, Phillip, MD MD ps1
[2018-02-09 22:13] LABS: Urine Blood 2+ (NEG); Urine Glucose 2+ (NEG); Urine Protein 1+ (NEG); Urine Specific Gravity <1.005 (1.005-1.030)
[2018-02-09] MEDS ORDERED: CEFTRIAXONE/SWI 1gm 1 GM/10 ML SYR ONE (22:37)
[2018-02-09] MEDS ORDERED: METOPROLOL TAR 50 MG TAB ONE (22:57)
[2018-02-10 00:56] VITALS: BMI 53.1
[2018-02-10] MEDS: IPRATROPIUM BROM 0.5MG/2.5ML NEB SCH ×4 (01:12→19:42)
[2018-02-10] MEDS ORDERED: ALPRAZOLAM 0.25 MG TABLET PO PRN (02:01)
[2018-02-10 06:20] LABS: Absolute Lymphocytes (CBC) 0.7 K/uL (0.7-4.9); Absolute Monocytes 0.8 K/uL (0.1-1.3); Absolute Neutrophil 4.7 K/uL (1.8-8.0); Eosinophils % 1.2 % (0-4.4); Hematocrit 32.3 % (36.0-45.0); Lymphocytes % 10.9 % (15.3-44.8); MCH 26.5 pg (27.0-35.0); MCV 85.8 fL (80-100); MPV 8.5 fL (7.6-11.3); Monocytes % 12.9 % (3.3-12.3); RBC Red Blood Cell Count 3.76 M/uL (3.86-4.86)
[2018-02-10 06:50] LABS: Albumin 3.6 g/dL (3.2-5.5); Bilirubin Total 0.8 mg/dL (0.3-1.2); Phosphorus 4.3 mg/dL (2.5-4.3); Potassium 4.3 mEq/L (3.6-5.0); Protein, Total 6.6 g/dL (6.0-8.3)
[2018-02-10] MEDS ORDERED: NA CHLORIDE 0.9% 500 ML IV ONE (08:21)
--- NOTE | 2018-02-10 08:26 | P.HP ---
Certification for Inpatient Patient admitted to: Observation With expected LOS: <2 Midnights Patient will require the following post-hospital care: None Practitioner: I am a practitioner with admitting privileges, knowledge of patient current condition, hospital course, and medical plan of care. Services: Services provided to patient in accordance with Admission requirements found in Title 42 Section 412.3 of the Code of Federal Regulations Patient History Date of Service: 02/09/18 Reason for admission: Shortness of breath/abdominal distention History of Present Illness: Patient is a 77-year-old female who is been feeling distended for the last week. She feels like there is a fullness in her abdomen. She states this is preventing her from breathing well. She is not able to get a deep breath and and her symptoms worsened over the last 24 hr. She was also having some pain in her right arm. Patient requested to be sent to the hospital for further evaluation. In the emergency room workup reveals she has some pulmonary edema. Labs show some mild renal dysfunction. Otherwise no significant abnormalities. Patient did not have any abdominal workup done in the emergency room. We will do a CT of the abdomen pelvis. If this is negative then patient should be stable for transfer back to the facility. Allergies exenatide [From Byetta] Allergy (Verified 02/10/18 01:19) Nausea/Vomiting meperidine HCl [From Demerol] Allergy (Verified 02/10/18 01:19) UNK Bellpepper Allergy (Mild, Uncoded 02/10/18 01:19) Unknown solares pepper Adverse Reaction (Mild, Uncoded 02/10/18 01:19) gas Home Medications: Alprazolam [Xanax*] 0.25 mg PO Q8HP PRN 08/19/17 Gabapentin [Neurontin*] 2 cap PO TID 08/19/17 Insulin Aspart [Novolog] See Protocol SQ ACHS 08/19/17 Insulin Detemir [Levemir] 60 units SQ DAILY WITH BREAKFAST 08/19/17 Loratadine [Claritin*] 10 mg PO DAILY 08/19/17 Spironolactone [Aldactone] 100 mg PO DAILY 08/19/17 Cranberry Fruit Extract [Cranberry] 200 mg PO BID 12/16/17 Escitalopram Oxalate 10 mg PO DAILY 12/16/17 Furosemide [Lasix*] 40 mg PO BID 12/16/17 Guaifenesin/Pseudoephedrne HCl [Mucinex D ER Tablet] 600 mg PO BID 12/16/17 Ipratropium/Albuterol Sulfate [Combivent Respimat Inhal [place]] 1 puff IH BID Melatonin [Melatonin*] 3 mg PO BEDTIME 12/16/17 Polyethylene Glycol 3350 [Miralax] 17 gm PO DAILY PRN 12/16/17 Guaifenesin [Meagan-Tussin] 5 ml PO Q6HP PRN 12/19/17 Cyanocobalamin (Vitamin B-12) [Vitamin B-12] 5,000 mcg SL DAILY #30 tab.subl 04/02 Docusate [Colace Cap] 100 mg PO BID #60 cap 12/21/17 Ferrous Sulfate [Ferrous Sulfate Elixir] 5 ml PO BID #300 ml 12/21/17 Pantoprazole Sodium [Protonix] 40 mg PO DAILY #30 tablet. 12/22/17 Nystatin/Triamcin [Nystatin-Triamcinolone Ointm] 1 appl TP QSHIFT 02/10/18 Protein Supplement [Promod] 30 ml PO BID 02/10/18 Simethicone [Mylicon Tab] 80 mg PO BID PRN 02/10/18 - Past Medical/Surgical History Has patient received pneumonia vaccine in the past: Yes Diabetic: Yes -: Congestive heart failure -: Anemia -: DVT -: dysphagia- had blisters in throat -: dyslipidemia -: HTN -: insomnia -: PE -: GERD -: COPD -: Depression -: hysterectomy -: c. section x2 -: IVC filter -: ORIF left foot -: tublaligation -: Left arm fracture -: R shoulder fx x2 -: Appendectomy & cholecystectomy - Family History Mother Medical History: Heart disease Father Medical History: Cancer Notes: colon cancer Brother Medical History: Diabetes Sister Medical History: Diabetes - Social History Smoking Status: Former smoker Alcohol use: No CD- Drugs: No Caffeine use: No Place of Residence: Residential Physical Examination - Vital Signs Temperature: 98.3 F Blood Pressure: 132/73 Pulse: 61 Respirations: 21 Pulse Ox (%): 97 - Studies Laboratory Data (last 24 hrs) 02/09/18 19:35: B-Natriuretic Peptide 597 H 02/09/18 19:35: Sodium 137, Potassium 4.2, BUN 40 H, Creatinine 1.48 H, Glucose 149 H, Total Bilirubin 0.8, AST 17, ALT 9 L, Alkaline Phosphatase 84 02/09/18 19:35: WBC 5.8, Hgb 10.0 L, Hct 31.9 L, Plt Count 152 Assessment & Plan - Problems (Diagnosis) (1) Abdominal distension Current Visit: Yes Status: Acute (2) Bowel obstruction Onset Date: 04/24/16 Current Visit: No Status: Acute (3) COPD with acute bronchitis Onset Date: 08/11/17 Current Visit: No Status: Acute (4) Dyspnea Onset Date: 10/01/15 Current Visit: No Status: Acute Qualifiers: Dyspnea type: orthopnea Qualified Code(s): R06.01 - Orthopnea (5) Hiatal hernia with GERD Current Visit: No Status: Acute (6) Hyperlipidemia Onset Date: 03/02/17 Current Visit: No Status: Chronic Qualifiers: Hyperlipidemia type: unspecified Qualified Code(s): E78.5 - Hyperlipidemia , unspecified (7) Hypertension Onset Date: 04/24/16 Current Visit: No Status: Chronic Qualifiers: Hypertension type: essential hypertension (8) Morbid obesity Onset Date: 10/01/15 Current Visit: No Status: Chronic (9) Acute on chronic diastolic CHF (congestive heart failure) Current Visit: No Status: Resolved - Plan Plan: 1. Will do CT of the abdomen and pelvis. May have to hold contrast because of renal function 2. Monitor LFTs 3. Strict Is&Os 4. Hold diuretics if renal function continues to worsen 5. Wean off of BiPAP 6. O2 per protocol 7. Physical therapy evaluation 8. GI and DVT prophylaxis Discharge Plan: Residential Plan to discharge in: 48 Hours - Advance Directives Does patient have a Living Will: No Does patient have a Durable POA for Healthcare: No - Code Status/Comfort Care Code Status Assessed: Yes Code Status: Full Code Critical Care: No Time Spent Managing PTS Care (In Minutes): 50
[2018-02-10] MEDS ORDERED: GABAPENTIN 100 MG CAP PO SCH (09:00)
[2018-02-10] MEDS ORDERED: IPRATROPIUM IH SCH (09:00)
[2018-02-10] MEDS ORDERED: VALSARTAN 80 MG TAB PO SCH (09:00)
[2018-02-10] MEDS ORDERED: LORATADINE 10 MG TAB PO SCH (09:00)
[2018-02-10] MEDS ORDERED: FUROSEMIDE 40 MG/4 ML VIAL IV SCH (09:00)
[2018-02-10] MEDS ORDERED: ALBUTEROL SULFATE IH SCH (09:00)
[2018-02-10] MEDS ORDERED: [UNRECOGNIZED DRUG - OTHER] IH SCH (09:00)
[2018-02-10] MEDS: ENOXAPARIN 30 MG/0.3 ML SQ SCH (09:01)
[2018-02-10] MEDS: ESCITALOPRAM 20 MG TAB PO SCH (09:02)
[2018-02-10] MEDS: CYANOCOBALAMIN 1,000 MCG TAB SL SCH (09:02)
[2018-02-10] MEDS: DOCUSATE NA 100 MG CAP PO SCH ×2 (09:03→20:38)
[2018-02-10] MEDS: METOPROLOL TAR 50 MG TAB PO SCH (09:03)
[2018-02-10] MEDS: PANTOPRAZOLE 40MG TABLET PO SCH (09:03)
[2018-02-10] MEDS: PROMOD 30 ML DOSE PO SCH ×2 (09:04→20:39)
--- NOTE | 2018-02-10 09:52 | ECHO ---
HEIGHT: 5 ft 5 in WEIGHT: 319 lb 3.2 oz DATE OF STUDY: 02/10/[address]: Mahesh Mary MD 2-DIMENSIONAL: YES M.MODE: YES DOPPLER: YES COLOR FLOW: YES TDS: YES PORTABLE: NO DEFINITY: NO BUBBLE STUDY: NO DIAGNOSIS: CONGESTIVE HEART FAILURE CARDIAC HISTORY: CATHERIZATION: NO SURGERY: NO PROSTHETIC VALVE: NO PACEMAKER: NO MEASUREMENTS (cm) DIASTOLIC (NORMALS) SYSTOLIC (NORMALS) IVSd 1.2 (0.6-1.2) LA Diam 4.5 (1.9-4.0) LVEF 65% LVIDd 4.6 (3.5-5.7) LVIDs 2.9 (2.0-3.5) %FS 36% LVPWd 1.1 (0.6-1.2) Ao Diam 2.6 (2.0-3.7) 2 DIMENSIONAL ASSESSMENT: RIGHT ATRIUM: DILATED LEFT ATRIUM: DILATED RIGHT VENTRICLE: NORMAL LEFT VENTRICLE: NORMAL TRICUSPID VALVE: NORMAL MITRAL VALVE: NORMAL PULMONIC VALVE: NORMAL AORTIC VALVE: NORMAL PERICARDIAL EFFUSION: NONE AORTIC ROOT: NORMAL LEFT VENTRICULAR WALL MOTION: PARADOXICAL SEPTAL MOTION. DOPPLER/COLOR FLOW: MILD TRICUSPID REGURGITATION. TRACE MITRAL REGURGITATION. MILD PULMONARY HYPERTENSION. ESTIMATED RIGHT VENTRICULAR SYSTOLIC PRESSURE 45mmHg. COMMENTS: NORMAL LEFT VENTRICULAR EJECTION FRACTION WITH PARADOXICAL SEPTAL MOTION. DILATED LEFT AND RIGHT ATRIUM. MILD TRICUSPID REGURGITATION. TRACE MITRAL REGURGITATION. MILD PULMONARY HYPERTENSION. TECHNOLOGIST: Marielle DE GUZMAN
--- NOTE | 2018-02-10 10:25 | EKG ---
Test Date: 2018-02-09 Test Time: 19:23:54 Ore Miner: SARY MEASUREMENT RESULTS: Intervals: Rate: 78 SC: QRSD: 86 QT: 380 QTc: 433 [place]: P: SC: QRS: 79 T: 33 INTERPRETIVE STATEMENTS: Atrial fibrillation Anterolateral infarct, age undetermined Abnormal ECG Compared to ECG 08/18/2017 13:15:08 Myocardial infarct finding now present Electronically Signed On 02-10-18 10:25:07 CDT by Cristobal Schaefer
--- NOTE | 2018-02-10 10:59 | RAD REPORT ---
EXAM DESCRIPTION: CT - Abdomen Pelvis Wo Contrast - 02/10/2018 10:28 am CLINICAL HISTORY: Abdominal pain with abdominal distention COMPARISON: December 2017 TECHNIQUE: Computed axial tomography of the abdomen and pelvis was obtained. IV was not requested. O ral contrast was given. Coronal reconstructions performed. All CT scans are performed using dose optimization technique as appropriate and may include automated exposure control or mA/KV adjustment according to patient size. FINDINGS: The evaluation of solid organs and vessels is limited secondary to the lack of contrast a dministration. Moderate right and small left pleural effusions are present with bibasilar atelectasis. The liver, spleen, pancreas, adrenals and kidneys appear grossly normal. Damico catheter is present the bladder. There is no evidence of diverticulitis. A small amount of ascites is present. Diffuse edema is seen w ithin subcutaneous tissues. A filter is present within the inferior vena cava. IMPRESSION: Moderate right and small left pleural effusions Small amount ascites
[2018-02-10] MEDS ORDERED: ALBUTEROL 2.5 MG/3 ML NEB SOL NEB PRN (13:12)
[2018-02-10] MEDS: ALPRAZOLAM 0.25 MG TABLET PO PRN (13:34)
[2018-02-10] MEDS: THIAMINE HCL 100 MG TABLET PO SCH ×2 (13:37→20:38)
[2018-02-10] MEDS ORDERED: FUROSEMIDE 100 MG in NA CHLORIDE 0.9% 90 ML IV SCH (16:00)
--- NOTE | 2018-02-10 16:03 | P.PN ---
Subjective Date of Service: 02/10/18 Chief Complaint: Shortness of breath/abdominal distention Patient is hypotensive and she also have fluid buildup feels the anchors Physical Examination - Vital Signs Temperature: 97.3 F Blood Pressure: 114/59 Pulse: 62 Respirations: 18 Pulse Ox (%): 91 - Physical Exam General: Alert, In no apparent distress, Obese HEENT: Atraumatic, PERRLA, EOMI Neck: Supple, JVD not distended Respiratory: Clear to auscultation bilaterally, Normal air movement Cardiovascular: Regular rate/rhythm, Normal S1 S2, Edema Gastrointestinal: Normal bowel sounds, No tenderness Musculoskeletal: No tenderness Integumentary: No rashes Neurological: Normal speech, Normal tone, Normal affect Lymphatics: No axilla or inguinal lymphadenopathy - Studies Laboratory Data (last 24 hrs) 02/10/18 05:37: Sodium 139, Potassium 4.3, BUN 43 H, Creatinine 1.55 H, Glucose 97, Phosphorus 4.3, Magnesium 2.0, Total Bilirubin 0.8, AST 16, ALT 9 L, Alkaline Phosphatase 82 02/10/18 05:37: WBC 6.3, Hgb 10.0 L, Hct 32.3 L, Plt Count 158 02/09/18 23:30: Troponin I 0.27 H 02/09/18 19:35: B-Natriuretic Peptide 597 H 02/09/18 19:35: Sodium 137, Potassium 4.2, BUN 40 H, Creatinine 1.48 H, Glucose 149 H, Total Bilirubin 0.8, AST 17, ALT 9 L, Alkaline Phosphatase 84 02/09/18 19:35: WBC 5.8, Hgb 10.0 L, Hct 31.9 L, Plt Count 152 Medications List Reviewed: Yes Assessment And Plan - Current Problems (Diagnosis) (1) Acute exacerbation of CHF (congestive heart failure) Onset Date: 02/10/18 Current Visit: Yes Status: Acute Qualifiers: Heart failure type: diastolic Qualified Code(s): I50.33 - Acute on chronic diastolic (congestive) heart failure (2) Elevated troponin Onset Date: 02/10/18 Current Visit: Yes Status: Acute (3) COPD with acute bronchitis Onset Date: 08/11/17 Current Visit: Yes Status: Chronic (4) Esophagitis Current Visit: Yes Status: Chronic (5) Gastritis Current Visit: Yes Status: Chronic Qualifiers: Chronicity: unspecified Gastritis bleeding: without bleeding (6) Hiatal hernia with GERD Current Visit: Yes Status: Chronic (7) CKD (chronic kidney disease), stage III Onset Date: 09/25/14 Current Visit: Yes Status: Chronic (8) Chronic anticoagulation Onset Date: 04/24/16 Current Visit: Yes Status: Chronic (9) Diabetes mellitus Onset Date: 10/01/15 Current Visit: Yes Status: Chronic Qualifiers: Diabetes mellitus type: type 2 Diabetes mellitus terminal operations manager insulin use: with fpc use Diabetes mellitus complication status: without complication Qualified Code(s): E11.9 - Type 2 diabetes mellitus without complications; Z79.4 - terminal carman (current) use of insulin; Z79.4 - MCFP ( current) use of insulin; Z79.4 - MCFP (current) use of insulin; Z79.4 - terminal carman (current) use of insulin (10) Diastolic heart failure Onset Date: 01/02/15 Current Visit: Yes Status: Chronic Qualifiers: Heart failure chronicity: chronic Qualified Code(s): I50.32 - Chronic diastolic (congestive) heart failure (11) Hyperlipidemia Onset Date: 03/02/17 Current Visit: Yes Status: Chronic Qualifiers: Hyperlipidemia type: unspecified Qualified Code(s): E78.5 - Hyperlipidemia , unspecified (12) Hypertension Onset Date: 04/24/16 Current Visit: Yes Status: Chronic Qualifiers: Hypertension type: essential hypertension (13) Morbid obesity Onset Date: 10/01/15 Current Visit: Yes Status: Chronic - Plan --start patient on Lasix 3 milligram/hour continuously intravenous; the patient have a borderline hypotension which seemed to be chronic --resume other home medicine --consults TIA and pulmonology and Cardiology
--- NOTE | 2018-02-10 16:34 | CON ---
History Of Present Illness: Mrs. Torres into the hospital with dyspnea. She has had a lot of weight gain, it is all edema type fluid. Ms. Torres has atrial fibrillation since about July of this year. The rate has been controlled fairly well. She had an echocardiogram today showing normal ejec tion fraction, but she has paradoxical septal motion. There is mild pulmonary hypertension. Her mauricio st x-ray seems to indicate a volume overload pattern. There has been a slowly progressive pain over the last several weeks. Medications: Her outpatient medications have been alprazolam, gabapentin, insulin, loratadine, jesus nolactone, polyethylene glycol, Combivent, furosemide 40 b.i.d., citalopram, iron sulfate, Protonix, nystatin cream, protein supplement, and simethicone. Allergies: SHE REPORTS NUMEROUS DRUG ALLERGIES INCLUDING TO [place]HAL PEPPER, DEMEROL, AND EXENATIDE. Social History: She does not use tobacco. Past Medical History: She has a history of AFib, congestive heart failure with normal ejection fract ion, anemia, deep vein thrombosis, dysphagia, dyslipidemia, hypertension, insomnia, pulmonary embolus , COPD, depression, hysterectomy, IVC filter, tubal ligation, left arm fracture, appendectomy, and ch olecystectomy. Physical Examination: She is 5 feet 5 inches, 319 pounds. She has edema of the abdominal wall, presacral edema, pedal natty a. Abdomen is nontender. Laboratory Data: Her laboratory exam is abnormal. Troponins are a little bit out of line. Her hemo globin is 10.0. Impression: Mrs. Torres is very volume overloaded. There is a lot of right and left heart strain, p robably causing . I am not willing to call this an acute coronary syndrome, but I think she could benefit from a lot of diuresis. Dr. Mary has already started that. I think, it is in every w ay the correct therapy for her, and she has been in atrial fibrillation long enough. I think trying to re-establish sinus rhythm will be almost impossible. BARTOLOME/MODL Voice ID: [id number] Report ID: [id number]
[2018-02-10] MEDS ORDERED: MELATONIN 3 MG TABLET PO SCH (21:00)
[2018-02-10] MEDS ORDERED: ACETAMINOPHEN 325 MG TABLET PO ONE (21:14)
[2018-02-11] MEDS: IPRATROPIUM BROM 0.5MG/2.5ML NEB SCH ×3 (01:38→13:00)
[2018-02-11] MEDS: ALPRAZOLAM 0.25 MG TABLET PO PRN ×2 (01:42→11:10)
[2018-02-11 05:59] LABS: Albumin 3.5 g/dL (3.2-5.5); Bilirubin Total 0.8 mg/dL (0.3-1.2); Protein, Total 6.5 g/dL (6.0-8.3)
[2018-02-11 06:00] LABS: Potassium 4.7 mEq/L (3.6-5.0)
[2018-02-11] MEDS ORDERED: INSULIN DETEMIR 100 UNIT/1 ML INSULIN SQ SCH (08:00)
[2018-02-11] MEDS: PROMOD 30 ML DOSE PO SCH (09:00)
[2018-02-11] MEDS: ENOXAPARIN 30 MG/0.3 ML SQ SCH (09:22)
[2018-02-11] MEDS: ESCITALOPRAM 20 MG TAB PO SCH (09:22)
[2018-02-11] MEDS: DOCUSATE NA 100 MG CAP PO SCH (09:23)
[2018-02-11] MEDS: CYANOCOBALAMIN 1,000 MCG TAB SL SCH (09:23)
[2018-02-11] MEDS: PANTOPRAZOLE 40MG TABLET PO SCH (09:24)
[2018-02-11] MEDS: THIAMINE HCL 100 MG TABLET PO SCH ×2 (09:24→14:11)
[2018-02-11 11:58] VITALS: O2SAT 96
--- NOTE | 2018-02-11 12:07 | PN ---
Date of Progress Note: 02/11/2018 Subjective: The patient was admitted by Dr. Mary for congestive heart failure on 02/10/2018, was see n by Dr. Schaefer. Aggressive diuresis is being done. The patient has an ejection fraction of 65%. S he has acute on chronic diastolic congestive heart failure that is resolving. She is oxygenating wel l. Sinus rhythm. No further change in therapy. Can go home whenever it is okay with Dr. Jacobo. KURT/MARY Voice ID: [id number] Report ID: [id number]
[2018-02-11] MEDS ORDERED: POLYETHYL GLY 3350 17 GM/DOSE PO PRN (12:16)
--- NOTE | 2018-02-11 13:08 | P.CNS ---
Date of Consult: 02/11/18 Reason for Consult: COPD exacerbation Chief Complaint: Shortness of breath/abdominal distention History of Present Illness: Patient is 77 years of age custodial resident admitted to the hospital complaining of dyspnea since October is been not coughing up some productive phlegm swelling of lower extremity apparently she was inform the she is full of fluid at smoking in 1992 the she uses nebulizers at that the custodial ambulate son and Allergies exenatide [From [place]] Allergy (Verified 02/10/18 01:19) Nausea/Vomiting meperidine HCl [From Demerol] Allergy (Verified 02/10/18 01:19) UNK [place] Allergy (Mild, Uncoded 02/10/18 01:19) Unknown [place] pepper Adverse Reaction (Mild, Uncoded 02/10/18 01:19) gas Home Medications: Alprazolam [Xanax*] 0.25 mg PO Q8HP PRN 08/19/17 Gabapentin [Neurontin*] 2 cap PO TID 08/19/17 Insulin Aspart [Novolog] See Protocol SQ ACHS 08/19/17 Insulin Detemir [Levemir] 60 units SQ DAILY WITH BREAKFAST 08/19/17 Loratadine [Claritin*] 10 mg PO DAILY 08/19/17 Spironolactone [Aldactone] 100 mg PO DAILY 08/19/17 Cranberry Fruit Extract [Cranberry] 200 mg PO BID 12/16/17 Escitalopram Oxalate 10 mg PO DAILY 12/16/17 Furosemide [Lasix*] 40 mg PO BID 12/16/17 Guaifenesin/Pseudoephedrne HCl [Mucinex D ER Tablet] 600 mg PO BID 12/16/17 Ipratropium/Albuterol Sulfate [Combivent Respimat Inhal [place]] 1 puff IH BID Melatonin [Melatonin*] 3 mg PO BEDTIME 12/16/17 Polyethylene Glycol 3350 [Miralax] 17 gm PO DAILY PRN 12/16/17 Guaifenesin [Meagan-Tussin] 5 ml PO Q6HP PRN 12/19/17 Cyanocobalamin (Vitamin B-12) [Vitamin B-12] 5,000 mcg SL DAILY #30 tab.subl 04/02 Docusate [Colace Cap*] 100 mg PO BID #60 cap 12/21/17 Ferrous Sulfate [Ferrous Sulfate Elixir*] 5 ml PO BID #300 ml 12/21/17 Pantoprazole Sodium [Protonix] 40 mg PO DAILY #30 tablet. 12/22/17 Nystatin/Triamcin [Nystatin-Triamcinolone Ointm] 1 appl TP QSHIFT 02/10/18 Protein Supplement [Promod] 30 ml PO BID 02/10/18 Simethicone [Mylicon*] 80 mg PO BID PRN 02/10/18 Metoprolol Tartrate [Lopressor*] 50 mg PO BID #60 tab 02/11/18 Psyllium [Metamucil (Hydrocil)*] 1 pkt PO BID packet 02/11/18 Thiamine HCl [Vitamin B-1*] 100 mg PO TID #90 tablet 02/11/18 - Past Medical/Surgical History Diabetic: Yes -: Congestive heart failure -: Anemia -: DVT -: dysphagia- had blisters in throat -: dyslipidemia -: HTN -: insomnia -: PE -: GERD -: COPD -: Depression -: hysterectomy -: c. section x2 -: IVC filter -: ORIF left foot -: tublaligation -: Left arm fracture -: R shoulder fx x2 -: Appendectomy & cholecystectomy - Family History Mother Medical History: Heart disease Father Medical History: Cancer Notes: colon cancer Brother Medical History: Diabetes Sister Medical History: Diabetes - Social History Smoking Status: Unknown if ever smoked Alcohol use: No CD- Drugs: No Caffeine use: No Place of [facility]idence: [facility] Review of Systems General: Weakness Respiratory: Shortness of Breath Cardiovascular: Edema Physical Examination Temp Pulse Resp BP Pulse Ox 97.4 F 65 18 132/76 91 02/11/18 08:00 02/11/18 08:00 02/11/18 08:00 02/11/18 08:00 02/11/18 08:00 General: Alert, Oriented x3 Respiratory: Clear to auscultation bilaterally, Diminished Cardiovascular: Normal S1 S2, Edema (Minimal edema) Gastrointestinal: Normal bowel sounds, Soft and benign Musculoskeletal: No clubbing, No swelling Integumentary: No rashes, No breakdown Neurological: Normal speech, Normal strength at 5/5 x4 extr - Problems (1) Dyspnea Onset Date: 10/01/15 Current Visit: No Status: Acute Plan: Patient is 77 years of age with a history of COPD admitted with worsening dyspnea since October lower extremity edema history of COPD uses nebulizers at home with smoking a long time ago chest x-ray shows cardiomegaly with bilateral pleural effusion confirmed on a CT scan of the abdomen patient has renal insufficiency elevated BNP she has pulmonary hypertension normal left ventricular function IVC filter present in inferior vena cava patient is hypoxic hypercapnic mild normocytic anemia final signs stable saturation 96% on 3 L probably has underlying diastolic dysfunction I suggest using aggressive diuresis the patient on Lasix Dc IV fluid Qualifiers: Dyspnea type: orthopnea Qualified Code(s): R06.01 - Orthopnea
[2018-02-11] MEDS ORDERED: FUROSEMIDE 40 MG/4 ML VIAL IV SCH (13:10)
[2018-02-11] MEDS ORDERED: LACTOBACILLUS/ACIDOPHILUS TAB PO SCH (14:00)
[2018-02-11 15:55] VITALS: BP 146/74; TEMP 97.6
--- NOTE | 2018-02-11 17:37 | P.DS ---
Admission Date: 02/10/18 Discharge Date: 02/11/18 Disposition: TRANSFER TO ASSISTED Discharge Condition: GOOD Reason for Admission: Shortness of breath/abdominal distention - Problems (1) Acute exacerbation of CHF (congestive heart failure) Onset Date: 02/10/18 Current Visit: Yes Status: Acute Qualifiers: Heart failure type: diastolic Qualified Code(s): I50.33 - Acute on chronic diastolic (congestive) heart failure (2) Elevated troponin Onset Date: 02/10/18 Current Visit: Yes Status: Acute (3) COPD with acute bronchitis Onset Date: 08/11/17 Current Visit: Yes Status: Chronic (4) Esophagitis Current Visit: Yes Status: Chronic (5) Gastritis Current Visit: Yes Status: Chronic Qualifiers: Chronicity: unspecified Gastritis bleeding: without bleeding (6) Hiatal hernia with GERD Current Visit: Yes Status: Chronic (7) CKD (chronic kidney disease), stage III Onset Date: 09/25/14 Current Visit: Yes Status: Chronic (8) Chronic anticoagulation Onset Date: 04/24/16 Current Visit: Yes Status: Chronic (9) Diabetes mellitus Onset Date: 10/01/15 Current Visit: Yes Status: Chronic Qualifiers: Diabetes mellitus type: type 2 Diabetes mellitus termite control representative insulin use: with termite control representative use Diabetes mellitus complication status: without complication Qualified Code(s): E11.9 - Type 2 diabetes mellitus without complications; Z79.4 - terminal manager (current) use of insulin; Z79.4 - custodial ( current) use of insulin; Z79.4 - custodial (current) use of insulin; Z79.4 - terminal manager (current) use of insulin (10) Diastolic heart failure Onset Date: 01/02/15 Current Visit: Yes Status: Chronic Qualifiers: Heart failure chronicity: chronic Qualified Code(s): I50.32 - Chronic diastolic (congestive) heart failure (11) Hyperlipidemia Onset Date: 03/02/17 Current Visit: Yes Status: Chronic Qualifiers: Hyperlipidemia type: unspecified Qualified Code(s): E78.5 - Hyperlipidemia , unspecified (12) Hypertension Onset Date: 04/24/16 Current Visit: Yes Status: Chronic Qualifiers: Hypertension type: essential hypertension Qualified Code(s): I10 - Essential (primary) hypertension (13) Morbid obesity Onset Date: 10/01/15 Current Visit: Yes Status: Chronic Brief History of Present Illness: Patient is a 77-year-old female who is been feeling distended for the last week. She feels like there is a fullness in her abdomen. She states this is preventing her from breathing well. She is not able to get a deep breath and and her symptoms worsened over the last 24 hr. She was also having some pain in her right arm. Patient requested to be sent to the hospital for further evaluation. In the emergency room workup reveals she has some pulmonary edema. Labs show some mild renal dysfunction. Otherwise no significant abnormalities. Patient did not have any abdominal workup done in the emergency room. We will do a CT of the abdomen pelvis. If this is negative then patient should be stable for transfer back to the facility. Hospital Course: The patient was admitted hospital because of diastolic dysfunction leading to fluid overload. The patient was treated with intravenous Lasix with clinical improvement. She has less edema and less short of breath. The patient is discharged home with higher dose of the Lasix. The patient developed no complication during this hospitalization. Vital Signs/Physical Exam: Temp Pulse Resp BP Pulse Ox 97.6 F 64 18 146/74 H 93 02/11/18 15:55 02/11/18 15:55 02/11/18 15:55 02/11/18 15:55 02/11/18 15:55 General: Alert, In no apparent distress HEENT: Atraumatic, PERRLA, EOMI Neck: Supple, JVD not distended Respiratory: Clear to auscultation bilaterally, Normal air movement Cardiovascular: Regular rate/rhythm, Normal S1 S2 Gastrointestinal: Normal bowel sounds, No tenderness Musculoskeletal: No tenderness Integumentary: No rashes Neurological: Normal speech, Normal tone, Normal affect Lymphatics: No axilla or inguinal lymphadenopathy Laboratory Data at Discharge: WBC 6.3 K/uL (4.3-10.9) 02/10/18 05:37 Hgb 10.0 g/dL (12.0-15.0) L 02/10/18 05:37 Hct 32.3 % (36.0-45.0) L 02/10/18 05:37 Plt Count 158 K/uL (152-406) 02/10/18 05:37 Sodium 136 mEq/L (135-145) 02/11/18 05:09 Potassium 4.7 mEq/L (3.6-5.0) 02/11/18 05:09 BUN 48 mg/dL (6-20) H 02/11/18 05:09 Creatinine 1.79 mg/dL (0.44-1.00) H 02/11/18 05:09 Glucose 147 mg/dL (65-120) H 02/11/18 05:09 Phosphorus 4.3 mg/dL (2.5-4.3) 02/10/18 05:37 Magnesium 2.0 mg/dL (1.8-2.5) 02/10/18 05:37 Total Bilirubin 0.8 mg/dL (0.3-1.2) 02/11/18 05:09 AST 18 IU/L (10-42) 02/11/18 05:09 ALT 6 IU/L (10-60) L 02/11/18 05:09 Alkaline Phosphatase 81 IU/L (42-121) 02/11/18 05:09 Troponin I 0.27 ng/mL (<0.03) H 02/09/18 23:30 B-Natriuretic Peptide 597 pg/ml (<=100) H 02/09/18 19:35 Home Medications: Alprazolam [Xanax*] 0.25 mg PO Q8HP PRN 08/19/17 Gabapentin [Neurontin*] 2 cap PO TID 08/19/17 Insulin Aspart [Novolog] See Protocol SQ ACHS 08/19/17 Insulin Detemir [Levemir] 60 units SQ DAILY WITH BREAKFAST 08/19/17 Loratadine [Claritin*] 10 mg PO DAILY 08/19/17 Spironolactone [Aldactone] 100 mg PO DAILY 08/19/17 Cranberry Fruit Extract [Cranberry] 200 mg PO BID 12/16/17 Escitalopram Oxalate 10 mg PO DAILY 12/16/17 Furosemide [Lasix*] 40 mg PO BID 12/16/17 Guaifenesin/Pseudoephedrne HCl [Mucinex D ER Tablet] 600 mg PO BID 12/16/17 Ipratropium/Albuterol Sulfate [Combivent Respimat Inhal [place]] 1 puff IH BID Melatonin [Melatonin*] 3 mg PO BEDTIME 12/16/17 Polyethylene Glycol 3350 [Miralax] 17 gm PO DAILY PRN 12/16/17 Guaifenesin [Meagan-Tussin] 5 ml PO Q6HP PRN 12/19/17 Cyanocobalamin (Vitamin B-12) [Vitamin B-12] 5,000 mcg SL DAILY #30 tab.subl 04/02 Docusate [Colace Cap*] 100 mg PO BID #60 cap 12/21/17 Ferrous Sulfate [Ferrous Sulfate Elixir*] 5 ml PO BID #300 ml 12/21/17 Pantoprazole Sodium [Protonix] 40 mg PO DAILY #30 tablet. 12/22/17 Nystatin/Triamcin [Nystatin-Triamcinolone Ointm] 1 appl TP QSHIFT 02/10/18 Protein Supplement [Promod] 30 ml PO BID 02/10/18 Simethicone [Mylicon*] 80 mg PO BID PRN 02/10/18 Metoprolol Tartrate [Lopressor*] 50 mg PO BID #60 tab 02/11/18 Psyllium [Metamucil (Hydrocil)*] 1 pkt PO BID packet 02/11/18 Thiamine HCl [Vitamin B-1*] 100 mg PO TID #90 tablet 02/11/18 New Medications: Metoprolol Tartrate [Lopressor*] 50 mg PO BID #60 tab Thiamine HCl [Vitamin B-1*] 100 mg PO TID #90 tablet Activity: Ad debbie Time spent managing pt's care (in minutes): 35
[2018-02-11] MEDS ORDERED: PSYLLIUM 1 PKT PO SCH (21:00)
--- NOTE | 2018-02-22 08:55 | CON ---
Date of Consultation: 02/11/2018 Reason For Consultation: With increasing constipation, abdominal discomfort, and shortness of breath . History Of Present Illness: This patient is a 77-year-old white female with history of diabetes, hyp ertension, congestive heart failure, chronic kidney disease, COPD, morbid obesity. The patient came to the hospital due to increasing shortness of breath at home, noted to have elevated troponin I. Agnes small has had AFib since July 2017. She has morbid obesity and congestive heart failure as stated above. She has increasing constipation she reports with generalized abdominal discomfort. She states " ." She takes 3-4 doses of medicine to go, which is MiraLAX and she has not seo d that in the hospital. She denies any melena, hematochezia, hemoptysis, hematuria, dysuria, polydip thuy . She does have lower extremity edema but no paresthesias. Maybe some mild muscle steven nt aches actually, but no chest pain. She does have shortness of breath. No seizure, syncope. No d epression, anxiety. Medications: Includes Xanax, aspirin, Lipitor, Lasix, Neurontin, NovoLog, Levemir, Claritin, Lopress or, Mycostatin, omeprazole, aldactone, albuterol, , Colace, dulcolax, cranberry fruit juice , Ditropan, citalopram, Lasix, guaifenesin, pseudoephedrine, Mucinex, Combivent, Levaquin, melatonin, MiraLAX, aldactone, trazodone, milk of magnesia. Allergies: DEMEROL, BYETTA, ROS[place]HAL PEPPERS. Past Medical History: Significant for diabetes, hypertension, congestive heart failure, chronic kidn ey disease, COPD, morbid obesity, hyperlipidemia, insomnia, pulmonary embolism, gastric reflux diseas e, depression, hysterectomy, x2, IVC filter, left foot surgery, tubal ligation, left arm fr acture, right shoulder surgery, upper shoulder fracture x2, appendectomy, cholecystectomy. Family History: Father of colon cancer. Mother of myocardial infarction at age 47. Broth er with diabetes. Sister with diabetes. Social History: in 2004. No alcohol, tobacco. Five children. Review of Systems: The patient has generalized abdominal discomfort, increasing constipation, shortness of breath. Occa sional palpitation. Some mild lower extremity edema. Denies any melena, hematochezia, hematemesis, coffee-grounds emesis, hematuria, dysuria, polydipsia, some mild muscle joint aches, mild depression, but no significant anxiety currently. No seizure, syncope. Physical Examination: Vital Signs: The patient is 5 feet 5, 312 pounds, BMI of 52 kg/m2. She had a temperature of 97.4 de grees Fahrenheit, pulse 65, respiration 18, blood pressure 130/76, O2 saturation 91% to 96%. She als o has a BiPAP, CPAP machine, which she is not on currently. HEENT: She is obese female, lying in bed, in no acute distress. HEENT: Normocephalic, atraumatic. Anicteric. Pupils are equal, round, and reactive to light. Orop harynx is clear. NECK: Supple, no masses. RESPIRATIONS: Show diminished breath sounds. Labored breathing. Cardiac: Regular rate and rhythm. No gallops or rubs. Abdomen: Positive bowel sounds. Soft, nontender, nondistended. Obese. Extremities: No clubbing, cyanosis, but did have lower extremity edema. Neuro: Alert and orient x3. Able to move all extremities. Laboratory Data: The patient has white count yesterday of 6.3, hemoglobin 10.0, hematocrit 32.3, MCV of 86, platelet count of 158, polys of 74, lymphocytes 11, monocytes 13%, eosinophils 1%. She has a sodium of 136, potassium 4.7, chloride 97, bicarb 27, BUN 48, creatinine of 1.8, glucose 147, calciu m 8.8, total bilirubin 0.8, AST of 18, ALT of 6, alkaline phosphatase 81, total protein 6.5, albumin 3.5. Troponin I is elevated at 0.27 and a rapid troponin I is slightly elevated at 0.06. B-type brendon riuretic peptide elevated at 597. Albumin 3.6 on the with a total protein 6.6, positive urine n itrite, trace leukocyte esterase, 1 to 2+ blood, 1+ ketones, otherwise negative on . CT abdomen and pelvis on the revealed moderate right and left pleural effusion, small amount of ascites, di ffuse edema within the subcutaneous tissues, vena cava. Impression: 1.Increased constipation with secondary generalized abdominal discomfort. " I took 3 to 4 doses of medication today referring to MiraLAX to have a bowel movement, which she has not had, so kallie small did start MiraLAX in this patient. 2.Increased shortness of breath at rest with severe chronic obstructive pulmonary disease and conges tive heart failure. Troponin I is elevated as well. Cardiology is following. 3.Atrial fibrillation since July 2017. 4.History of obesity, congestive heart failure, and other as per above. Recommendation: 1.Start MiraLAX at least t.i.d. dosing. 2.Fiber supplements and Colace 2 to 3 times per day. 3.Start probiotics, . 4.Continue Protonix. BOO/MARY Voice ID: [id number] Report ID: [id number]
== END 2018-02-11 18:26 | DRG 291 ==
LOC: ER 19:09 → ERHOLD 21:07 → 4TH 22:00 → OBSVTOIN 02-10 12:14
PROVIDERS: ADMIT Hospitalist; ATTEND Hospitalist
DX: I13.0 Hypertensive heart and chronic kidney disease with heart failure and stage 1 through stage 4 chronic kidney disease, or unspecified chronic kidney disease (principal); I50.33 Acute on chronic diastolic (congestive) heart failure; Z68.43 Body mass index [BMI] 50.0-59.9, adult; E11.22 Type 2 diabetes mellitus with diabetic chronic kidney disease; N18.3 Chronic kidney disease, stage 3 (moderate); K21.0 Gastro-esophageal reflux disease with esophagitis; K44.9 Diaphragmatic hernia without obstruction or gangrene; Z79.01 Long term (current) use of anticoagulants; E78.5 Hyperlipidemia, unspecified; E66.01 Morbid (severe) obesity due to excess calories; J44.9 Chronic obstructive pulmonary disease, unspecified
CPT/HCPCS: 36415; 51702; 70450; 71045; 74176; 80048; 80053; 80076; 81003; 82805; 82962; 83735; 83880; 84100; 84443; 84484; 85025; 85610; 85730; 87040; 87070; 87086; 87088; 87205; 93005; 93306; 94640; 94660; 94760; 96365; 96375; 99285; 99291; 99292; G0378; J0456; J0696; J1650; J2920

== ENCOUNTER 2018-02-14 08:38 | Inpatient (IN) | payer OTHER ==
--- OUTSIDE RECORDS SUMMARY | 2018-02-14 08:40 | XMS REPORT | Clinical Summary ---
:1940 Author Organization [facility] Address [address] [place] [address] Phone Care Team Providers Name Role Phone Unavailable Primary Care Provider Unavailable Allergies Active Allergy Reactions Severity Noted Date Comments Green Pepper Other (See Comments) Medium 06/23/2017 Pt reported gas and rash r/t solares peppers Exenatide Nausea And Vomiting 06/21/2017 Meperidine (Pf) Anxiety, Other (See Low 10/07/2016 restless Comments) Current Medications Prescription Sig. Disp. Refills Start End Status Date Date traZODone Take 50 mg by Active (DESYREL) 50 MG mouth nightly. tablet senna-docusate Take 1 tablet by Active (SENOKOT S) 8.6-50 mouth 2 (two) mg per tablet times daily. pantoprazole Take 40 mg by Active (PROTONIX) 40 MG mouth daily. tablet LORazepam (ATIVAN) Take 0.5 mg by Active 0.5 MG tablet mouth 2 (two) times daily as needed for Anxiety. gabapentin Take 600 mg by Active (NEURONTIN) 600 MG mouth 3 (three) tablet times daily. citalopram Take 40 mg by Active (CELEXA) 40 MG mouth daily. tablet buPROPion Take 100 mg by Active (WELLBUTRIN) 100 mouth 2 (two) MG tablet times daily. tiotropium Inhale 18 mcg by Active (SPIRIVA) 18 mcg mouth via inhaler inhalation capsule daily. acetaminophen Take 2 tablets 30 tablet 0 07/02/20 Active (TYLENOL) 325 MG (650 mg total) by 17 018 tablet mouth every 4 (four) hours as needed for up to 360 days. DEXTROSE 50 % IN Inject 25 mLs 0 07/02/20 Active WATER (DEXTROSE (12.5 g total) 17 50%, D50W,) Syrg intravenously as injection needed (Less than 70 mg/dL). enoxaparin Inject 0.4 mLs 0 07/02/20 Active (LOVENOX) 40 (40 mg total) 17 mg/0.4 mL Syrg subcutaneously daily. ipratropium-albute Take 3 mLs by 0 07/02/20 Active rol (DUO-NEB) 0.5 nebulization 17 018 mg-3 mg(2.5 mg every 6 (six) base)/3 mL hours for 360 nebulizer solution days. metoprolol Take 0.5 tablets 0 07/02/20 Active (LOPRESSOR) 25 MG (12.5 mg total) 17 018 tablet by mouth 2 (two) times daily. ondansetron Inject 2 mLs (4 20 mL 0 07/02/20 Active (ZOFRAN) 4 mg/2 mL mg total) 17 injection intravenously every 8 (eight) hours as needed. piperacillin-tazob Inject 2.25 g 0 07/02/20 Active actam (ZOSYN) 2.25 intravenously 17 g in sodium every 8 (eight) chloride 0.9 % hours. (NS) 100 mL ADD EASE IVPB furosemide (LASIX) Take 1 tablet (40 0 07/02/20 Active 40 MG tablet mg total) by 17 018 mouth 2 (two) times daily. furosemide (LASIX) Take 1 tablet (40 0 07/03/20 Active 40 MG tablet mg total) by 17 018 mouth 2 (two) times daily. rivaroxaban Take 15 mg by Discontinued (XARELTO) 15 mg mouth daily. 017 Tab tablet spironolactone Take 100 mg by Discontinued (ALDACTONE) 100 MG mouth daily. 017 tablet furosemide (LASIX) Take 20 mg by Discontinued 20 MG tablet mouth daily. 017 insulin aspart Inject 15 Units Discontinued (NOVOLOG) 100 subcutaneously 3 017 unit/mL injection (three) times daily before meals. insulin detemir Inject 70 Units Discontinued (LEVEMIR) 100 subcutaneously 017 unit/mL injection every morning 70 units every morning and 90 units every evening . aspirin 81 MG Take 1 tablet (81 90 tablet 3 10/09/20 chewable tablet mg total) by 16 017 mouth daily. atorvastatin Take 1 tablet (40 90 tablet 3 10/09/20 (LIPITOR) 40 MG mg total) by 16 017 tablet mouth nightly. lisinopril Take 1 tablet (5 90 tablet 3 10/09/20 Discontinued (PRINIVIL,ZESTRIL) mg total) by 16 017 5 MG tablet mouth daily. metoprolol Take 0.5 tablets 180 tablet 3 10/09/20 Discontinued (LOPRESSOR) 25 MG (12.5 mg total) 16 017 tablet by mouth every 6 (six) hours. furosemide (LASIX) Take 2 tablets 20 tablet 0 07/02/20 Discontinued 20 MG tablet (40 mg total) by [address] 1 12 suppository 0 07/02/20 (DULCOLAX) 10 mg suppository (10 17 017 suppository mg total) rectally daily as needed for up to 10 days. docusate sodium Take 1 capsule 10 capsule 0 07/02/20 (COLACE) 100 MG (100 mg total) by 17 017 capsule mouth 2 (two) times daily for 10 days. ondansetron Take 1 tablet (4 20 tablet 0 07/02/20 (ZOFRAN-ODT) 4 MG mg total) by 17 017 disintegrating mouth every 8 tablet (eight) hours as needed for up to 7 days. polyethylene Take 17 g by 14 each 0 07/02/20 glycol (GLYCOLAX) mouth daily as 17 017 17 gram packet needed (Constipation) for up to 3 days. Active Problems Problem Noted Date Acute cholecystitis 06/21/2017 Chest pain 10/07/2016 Coronary artery disease 10/07/2016 Hypertension 10/07/2016 Mixed hyperlipidemia 10/07/2016 History of pulmonary embolus (PE) 10/07/2016 Diabetes mellitus (HCC) 10/07/2016 Encounters Date Type Specialty Care Team Description 06/26/2017 Anesthesia Event Ramon Pop MD 06/26/2017 Procedure Pass 06/26/2017 Surgery Genaro Arrington,SAGRARIO Valdez MD CTOMY 06/21/2017 - Hospital Encounter Intensive Care Nilesh Guerrier Postoperative 07/02/2017 MD Hari hypotension (Primary Dx);Acute cholecystitis 06/21/2017 Orders Only Nicole Duron, RN after 02/13/2017 Social History Tobacco Use Types Packs/Day Years Used Date Former Smoker Alcohol Use Drinks/Week oz/Week Comments No Sex Assigned at Date Recorded Not on file Last Filed Vital Signs Vital Sign Reading Time Taken Blood Pressure 118/44 07/02/2017 5:11 PM CDT Pulse 74 07/02/2017 5:21 PM CDT Temperature 37.3 C (99.1 F) 07/02/2017 10:30 AM CDT Respiratory Rate 21 07/02/2017 5:21 PM CDT Oxygen Saturation 100% 07/02/2017 5:21 PM CDT Inhaled Oxygen Concentration - - Weight 136.1 kg (300 lb) 06/26/2017 6:00 AM CDT Height 165.1 cm (5' 5") 06/26/2017 6:00 AM CDT Body Mass Index 49.92 06/26/2017 6:00 AM CDT Plan of Treatment Not on file Implants Implanted Type Area Insole Taper Device Expiration Model / Identifier Date Serial / Lot Hemstas Mph Absorb Hemo [address]gr [address] - [id number] Cement/Fi MEDAFOR 03/03/[address] / Implanted: Qty: 1 on 06/26/2017 by Genaro Arrington MD ller/Adhe HEMOSTATIC [id number] / sive POLYMER SHERIE [id number] Procedures Procedure Name Priority Date/Time Associated Diagnosis Comments US GUIDE, VASCULAR Routine 06/26/2017 3:55 Postoperative Results for this ACCESS PM CDT hypotension procedure are in Acute cholecystitis the results section. INSERT NON-TUNNEL Routine 06/26/2017 3:55 Postoperative Results for this CV CATH PM CDT hypotension procedure are in Acute cholecystitis the results section. LAPAROSCOPY,CHOLEC 06/26/2017 9:00 ACUTE CHOLECYSTITIS YSTECTOMY AM CDT Special Needs RM 526ASST after 02/13/2017 Results ECHOCARDIOGRAM REPORT - SCAN (09/02/2017 11:30 AM)EKG-SCANNED (07/07/2017 2:24 PM)RHYTHM STRIP - SCAN (07/07/2017 2:24 PM)TRANSFUSION SERVICE REPORT - SCAN ( 07/06/2017 3:16 PM)Only the most recent of3 resultswithin the time period is included.POC-Glucose meter (07/02/2017 11:59 AM)Only the most recent of100 resultswithin the time period is included. Component Value Ref Range POC-Glucose Meter 111 (H)Comment: TESTED AT [facility] [address] 70 - 110 mg/dL [facility] [place]NOTE 2] [id number] Specimen Performing Laboratory Blood [facility] [address] [address] XR chest 1 view portable / bedside (07/02/2017 6:01 AM)Only the most recent of10 resultswithin the time period is included. Specimen Performing Laboratory GE RIS Narrative FINAL REPORT Chest dated July 02, 2017 COMPARISON: July 01, 2017 Comment: Since prior examination, there is interval worsening of airspace in both lower lobes suggestive of worsening of pulmonary edema or pneumonia. There is trace bilateral pleural effusion. Heart is minimally enlarged. Left IJ central venous catheter in place. IMPRESSION: Interval worsening of airspace disease in both lower lobes. Signed: Corinne Saez MD Report Verified Date/Time:07/02/2017 08:05:51 Reading Location: [facility] Diagnostic Imaging Reading Room - [place] [address] Procedure Note Interface, External Ris In - 07/02/2017 8:08 AM CDT FINAL REPORT Chest dated July 02, 2017 COMPARISON: July 01, 2017 Comment: Since prior examination, there is interval worsening of airspace in both lower lobes suggestive of worsening of pulmonary edema or pneumonia. There is trace bilateral pleural effusion. Heart is minimally enlarged. Left IJ central venous catheter in place. IMPRESSION: Interval worsening of airspace disease in both lower lobes. Signed: Corinne Saez MD Report Verified Date/Time: 07/02/2017 08:05:51 Reading Location: [facility] Diagnostic Imaging Reading Room - [place] [address] Calcium, Ionized (07/02/2017 5:41 AM)Only the most recent of3 resultswithin the time period is included. Component Value Ref Range Calcium, Ion 1.11 (L) 1.12 - 1.27 mmol/L pH, Blood 7.35 Specimen Performing Laboratory Blood [facility] [address] [place] [address] CBC with platelet count + automated diff (07/02/2017 5:41 AM)Only the most recent of12 resultswithin the time period is included. Component Value Ref Range WBC 8.5 4.0 - 10.0 K/L RBC 2.82 (L) 4.00 - 5.00 M/L Hemoglobin 8.0 (L) 12.0 - 15.0 GM/DL Hematocrit 25.2 (L) 36.0 - 45.0 % MCV 89.5 82.0 - 99.0 fL MCH 28.3 27.0 - 33.0 pg MCHC 31.6 (L) 32.0 - 36.0 GM/DL RDW 17.1 (H) 10.3 - 14.2 % Platelets 204 150 - 430 K/CU MM MPV 8.2 6.5 - 10.5 fL nRBC 0 0 - 0 /100 WBC % Neutros 72 % % Lymphs 16 % % Monos 10 % % Eos 2 % % Baso 0 % # Neutros 6.10 1.80 - 8.00 K/L # Lymphs 1.30 (L) 1.48 - 4.50 K/L # Monos 0.90 0.00 - 1.30 K/L # Eos 0.20 0.00 - 0.50 K/L # Baso 0.00 0.00 - 0.20 K/L Specimen Performing Laboratory Blood [address] [address] CBC with platelet count + automated diff (07/02/2017 5:41 AM)Only the most recent of12 resultswithin the time period is included. Specimen Performing Laboratory Blood Narrative The following orders were created for panel order CBC with platelet count + automated diff. Procedure Abnormality Status --------- ------ CBC with platelet count ...[[id number]]AbnormalFinal result Please view results for these tests on the individual orders. Phosphorus (07/02/2017 5:41 AM)Only the most recent of9 resultswithin the time period is included. Component Value Ref Range Phosphorus 2.3 (L) 2.5 - 4.5 mg/dL Specimen Performing Laboratory Blood [facility] [address] [place] [address] Magnesium (07/02/2017 5:41 AM)Only the most recent of11 resultswithin the time period is included. Component Value Ref Range Magnesium 1.9 1.5 - 3.0 mg/dL Specimen Performing Laboratory Blood [facility] [address] [place] [address] Basic Metabolic Panel (07/02/2017 5:41 AM)Only the most recent of7 resultswithin the time period is included. Component Value Ref Range Sodium 137 135 - 148 meq/L Potassium 4.3 3.6 - 5.5 meq/L Chloride 102 98 - 106 meq/L CO2 28 20 - 29 meq/L BUN 18 10 - 26 mg/dL Creatinine 0.80 0.50 - 1.20 mg/dL Glucose 121 (H) 70 - 110 mg/dL Calcium 7.9 (L) 8.5 - 10.5 mg/dL EGFR 70Comment: ESTIMATED GFR IS NOT ACCURATE mL/min/1.73 sq m CREATININE CLEARANCE IN PREDICTING GLOMERULAR FILTRATION RATE. ESTIMATED GFR IS NOT APPLICABLE FOR DIALYSIS PATIENTS. Specimen Performing Laboratory Blood [facility] [address] [place] [address] NM hepatobiliary (HIDA) scan (07/01/2017 2:00 PM)Only the most recent of2 resultswithin the time period is included. Specimen Performing Laboratory [employer] Narrative FINAL REPORT PROCEDURE: HEPATOBILIARY SCAN CPT CODE: 17796 INDICATION: Nausea, vomiting, bilious fluid drainage, concern for bile leak PROTOCOL: 6.5 mCi of Tc-99m mebrofenin was injected intravenously. Images of the upper abdomen were obtained for approximately 60 minutes after tracer injection. FINDINGS:Initial tracer uptake into the liver is physiological. Subsequent tracer clearance from the liver proceeds normally. There is good visualization of the extrahepatic biliary duct, and the tracer appears appropriately in the small bowel. The gallbladder is not visualized. IMPRESSION: 1. No scintigraphic evidence of a bile leak or biliary obstruction. 2. Nonvisualization of gallbladder consistent with documented history of recent cholecystectomy. Signed: Lalito Stone MD Report Verified Date/Time:07/01/2017 15:47:35 Reading Location: [address] [place] [address] Reading Room Procedure Note Interface, External Ris In - 07/01/2017 3:49 PM CDT FINAL REPORT PROCEDURE: HEPATOBILIARY SCAN CPT CODE: 38647 INDICATION: Nausea, vomiting, bilious fluid drainage, concern for bile leak PROTOCOL: 6.5 mCi of Tc-99m mebrofenin was injected intravenously. Images of the upper abdomen were obtained for approximately 60 minutes after tracer injection. FINDINGS: Initial tracer uptake into the liver is physiological. Subsequent tracer clearance from the liver proceeds normally. There is good visualization of the extrahepatic biliary duct, and the tracer appears appropriately in the small bowel. The gallbladder is not visualized. IMPRESSION: 1. No scintigraphic evidence of a bile leak or biliary obstruction. 2. Nonvisualization of gallbladder consistent with documented history of recent cholecystectomy. Signed: Lalito Stone MD Report Verified Date/Time: 07/01/2017 15:47:35 Reading Location: [address] [place] [address] Reading Room Triglycerides (07/01/2017 5:22 AM) Component Value Ref Range Triglycerides 108 mg/dL Specimen Performing Laboratory Blood - Central Venous Line [facility] [address] [place] [address] Narrative TRIGLYCERIDE REFERENCE RANGE Low Risk<150 Borderline Risk 150-199 High [id number] Very High Risk >=500 Blood gas, arterial (06/29/2017 10:59 AM)Only the most recent of7 resultswithin the time period is included. Component Value Ref Range pH, Arterial 7.52 (H) 7.35 - 7.45 pCO2, Arterial 35 35 - 45 mmHg pO2, Arterial 92 (H) 80 - 90 mmHg O2 Sat, Arterial 97.6 (H) 96.0 - 97.0 % HCO3, Arterial 28 21 - 29 mmol/L Base Excess, Arterial 5.1 (H) -2.0 - 3.0 mmol/L Patient Temperature 37.5 C FIO2 40.0 % Specimen Performing Laboratory Blood, Arterial [facility] [address] [place] [address] Potassium (06/29/2017 4:43 AM) Component Value Ref Range Potassium 3.0 (L) 3.6 - 5.5 meq/L Specimen Performing Laboratory Blood - Central Venous Line [facility] [address] [place] [address] Prepare Leuko-Red RBC (06/28/2017 11:54 PM) Component Value Ref Range CROSSMATCH COMPATIBLE Unit ABO A Pos UNIT NUMBER [id number] Status TRANSFUSED Blood Bank Product RED BLOOD CELLS PRODUCT CODE [id number] CROSSMATCH COMPATIBLE Unit ABO A Pos UNIT NUMBER [id number] Status TRANSFUSED Blood Bank Product RED BLOOD CELLS PRODUCT CODE [id number] Specimen Performing Laboratory Other [facility] [place] Transfuse Leuko-Red RBC (06/27/2017 3:44 PM)Only the most recent of2 resultswithin the time period is included.Manual Differential (06/27/2017 5:07 AM)Only the most recent of3 resultswithin the time period is included. Component Value Ref Range % Neutros (manual) 89 % % Lymphs (manual) 5 % % Monos (manual) 4 % % Bands (manual) 2 0 - 10 % # Neutros (manual) 21.09 (H) 1.80 - 8.00 K/L # Lymphs (manual) 1.19 (L) 1.48 - 4.50 K/L # Monos (manual) 0.95 0.00 - 1.30 K/L # Bands (manual) 0.5 0.0 - 0.8 K/L Total Counted 100 Bands plus Segmented Neutrophils 21.57 WBC Morphology Normal Platelet Morphology Normal Anisocytosis 1+ few Hypochromia 2+ moderate Specimen Performing Laboratory Blood - Central Venous Line [facility] [address] [place] [address] Lactic acid, venous, whole blood (06/27/2017 5:07 AM)Only the most recent of2 resultswithin the time period is included. Component Value Ref Range Lactate, Venous 0.9 0.5 - 2.2 mmol/L Specimen Performing Laboratory Blood - Central Venous Line [facility] [address] [place] [address] Narrative Effective 03/19/2016: Units/Reference Range Change New: 0.5-2.2 mmol/LPrevious: 5-18 mg/dL B-type Natriuretic Factor (BNP) (06/27/2017 5:07 AM)Only the most recent of3 resultswithin the time period is included. Component Value Ref Range BNP 159 (H) 0 - 100 pg/mL Specimen Performing Laboratory Blood - Central Venous Line [facility] [address] [place] [address] Sputum Culture + Gram Stain (06/26/2017 4:14 PM) Component Value Ref Range Result 2+ Normal respiratory albina present Gram Stain Result 2+ White blood cells seen Gram Stain Result 0-5 epithelial cells Gram Stain Result 1+ gram positive cocci in chains, pairs and clusters Specimen Performing Laboratory Sputum - Endotracheal [facility] [address] [place], [place] [address] Prothrombin time/INR (06/26/2017 4:14 PM) Component Value Ref Range Protime 16.3 (H) 9.3 - 12.0 seconds INR 1.5 <=5.9 Specimen Performing Laboratory Blood [facility] [address] [place] [address] Narrative RECOMMENDED COUMADIN/WARFARIN INR THERAPY RANGES STANDARD DOSE: 2.0 - 3.0 Includes: PROPHYLAXIS for venous thrombosis, systemic embolization; TREATMENT for venous thrombosis and/or pulmonary embolus. HIGH RISK: Target INR is 2.5-3.5 for patients with mechanical heart valves. Type and screen (06/26/2017 4:14 PM) Component Value Ref Range Ab Scrn NEGATIVE ABO Grouping A Rh Factor POS Specimen Performing Laboratory Blood [place] [address] Central Line (06/26/2017 3:55 PM) Harley Shell ACNP 06/26/20173:55 PM Central Line Date/Time: 06/26/2017 3:34 PM Performed by: HARLEY BARAHONA Authorized by: HARLEY BARAHONA Consent: Verbal consent obtained. Written consent obtained. Consent given by: guardian Patient understanding: patient states understanding of the procedure being performed Patient consent: the patient's understanding of the procedure matches consent given Procedure consent: procedure consent matches procedure scheduled Relevant documents: relevant documents present and verified Test results: test results available and properly labeled Site marked: the operative site was marked Imaging studies: imaging studies available Required items: required blood products, implants, devices, and special equipment available Patient identity confirmed: verbally with patient, arm band, provided demographic data and hospital-assigned identification number Time out: Immediately prior to procedure a "time out" was called to verify the correct patient, procedure, equipment, network support analyst and site/side marked as required. Indications: vascular access and central pressure monitoring Anesthesia: Local Anesthetic: lidocaine 1% without epinephrine Anesthetic total: 2 mL Sedation: Patient sedated: no Preparation: skin prepped with ChloraPrep Skin prep agent dried: skin prep agent completely dried prior to procedure Sterile barriers: all five maximum sterile barriers used - cap, mask, sterile gown, sterile gloves, and large sterile sheet Hand hygiene: hand hygiene performed prior to central venous catheter insertion Location details: left internal jugular Patient position: flat Catheter size: 7 Fr Pre-procedure: landmarks identified Ultrasound guidance: yes Sterile ultrasound techniques: sterile gel and sterile probe covers were used Number of attempts: 2 Successful placement: yes Post-procedure: line sutured and dressing applied Assessment: blood return through all ports,placement verified by x-ray and no pneumothorax on x-ray Patient tolerance: Patient tolerated the procedure well with no immediate complications Immediate Post-Procedure Note Date/Time: 06/26/2017 3:36 PM Assistants to the procedure: None Pre-procedure diagnosis: hypotension, s/p open cholecystectomy, respiratory failure intubated Post-procedure diagnosis: same as above Procedures Performed: Central Line Specimens removed: None Estimated blood loss (mL): None Complications: None Type of anesthesia: None Grafts or Implants: None Comprehensive metabolic panel (06/26/2017 1:01 PM)Only the most recent of5 resultswithin the time period is included. Component Value Ref Range Protein, Total 5.5 (L) 6.0 - 8.5 gm/dL Albumin 2.5 (L) 3.5 - 5.0 g/dL Alkaline Phosphatase 128 (H) 30 - 115 U/L Total Bilirubin 0.6 0.1 - 1.2 mg/dL Sodium 130 (L) 135 - 148 meq/L Potassium 3.9 3.6 - 5.5 meq/L Chloride 95 (L) 98 - 106 meq/L CO2 28 20 - 29 meq/L BUN 40 (H) 10 - 26 mg/dL Creatinine 1.10 0.50 - 1.20 mg/dL Glucose 446 (HH) 70 - 110 mg/dL Calcium 8.5 8.5 - 10.5 mg/dL AST 50 (H) 5 - 40 U/L ALT 45 5 - 50 U/L EGFR 48Comment: ESTIMATED GFR IS NOT ACCURATE mL/min/1.73 sq m CREATININE CLEARANCE IN PREDICTING GLOMERULAR FILTRATION RATE. ESTIMATED GFR IS NOT APPLICABLE FOR DIALYSIS PATIENTS. Specimen Performing Laboratory Blood [facility] [address] [place] [address] Tissue Exam (06/26/2017 11:17 AM) Component Value Ref Range Case Report Surgical Pathology Report Case: [id number] Authorizing Provider:Genaro Arrington MD Collected: 06/26/2017 1117 Ordering Location: [address] Med/SurgReceived: 06/26/2017 1236 Pathologist: Andie Haines MD Specimen:Gallbladder DIAGNOSIS GALLBLADDER, CHOLECYSTECTOMY: - ACUTE GANGRENOUS CHOLECYSTITIS - CHOLELITHIASIS CPT Code(s) MG/ew 42581 CLINICAL HISTORY Acute cholecystitis SPECIMEN SOURCE Gallbladder GROSS DESCRIPTION Specimen is received without fixative and designated as "gallbladder", consists of a cholecystectomy specimen (9.0 x 4.5 x 1.0 cm) that has been previously opened. In addition, multiple yellow-buitrago fibropurulent debris (9.0 x 9.0 x 1.5 cm) is also within the specimen container. The gallbladder mucosa is green-buitrago with purulent exudate on its surface. The gallbladder mucosa is green-buitrago with areas of white-buitrago purulent exudate. Fragments of gallstones are identified ranging in size from 0.2 cm. Director Of Officiating sections of the gallbladder mucosa, cystic duct and purulent exudate are submitted into A1. MG/ew MICROSCOPIC DESCRIPTION Sections show gallbladder mucosa and wall with extensive acute inflammation and granulation tissue formation. Necrosis is identified throughout the entire thickness of the wall with surrounding pericholecystic fat necrosis. No dysplasia or malignancy is seen. 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 Physician Procedure Type of Study TTE procedure:2DECHO W DOPPLER(CW/PW/COLOR) (Routine) Indications:Dyspnea/SOB. Clinical History DEFINITY WAS USED CKD CAD HLD DM HTN MORBID OBESITY Height: 65 inches Weight: 131.54 kg (290 lbs) BSA: 2.32 m^2 BMI: 48.26 kg/m^2 HR: 73 bpm BP: 156/67 mmHg Summary Adequate endocardial definition with contrast agent. The left ventricle is normal in size, wall thickness, and contractility. The visual ejection fraction was estimated 60 %. Grade 1 diastolic dysfunction (impaired relaxation and low-normal LA pressure). Mitral regurgitation - mild. [id number]-hs-nwmaniij tricuspid regurgitation. Estimated peak systolic pressure is at least 50-55 mmHg. Signature Findings Technical Quality: Poor visualization due to body habitus. Left Ventricle Adequate endocardial definition with contrast agent. The left ventricle is normal in size, wall thickness, and contractility. The visual ejection fraction was estimated 60 %. Grade 1 diastolic dysfunction (impaired relaxation and low-normal LA pressure). Left AtriumThe left atrium is not well visualized. The left atrium appears normal. Right VentricleThe right ventricular chamber size and systolic function are within normal limits. Right Atrium The right atrium is not well visualized. Right Atrium is upper limits of normal for size. Atrial SeptumThe interatrial septum is not well visualized. Aortic Valve The aortic valve is not well visualized, but appears normal. There is no aortic stenosis. There is no aortic regurgitation. Mitral Valve Mild mitral annular calcification. Mitral regurgitation - mild. Tricuspid YsxvbYtel-[id number] tricuspid regurgitation. Estimated peak systolic pressure is at least 50-55 mmHg. Pulmonic Valve No evidence of pulmonary regurgitation. AortaAortic root size (SInus of Valsalva diameter) is normal . PericardiumNo pericardial effusion is visualized. IVC/SVC/PA/PV/PleuralThe inferior vena cava is not well visualized. Chambers/Structures Left Atrium LA Dimension: 4.43 cm Left Ventricle LVIDd: 4.63 cmLVEDV 2D :98.7 ml LVIDs: 3.39 cmLVESV 2D :47.12 ml LV Septum Diastolic: 0.79 cm LV Septum Systolic: 1.16 cm LV PW Diastolic: 0.93 cmLV FS: 26.8 % LV PW Systolic: 1.28 cm LV ESV (Cubed): 38.96 cc LV ESV (Teich):47.1 ml LV SV (Teich):51.73 ml LV SI (Teich):22.3 ml/m^2 LVEF 2D Teich: 52.3 % Right Atrium RA Systolic Pressure: 10 mmHg Right Ventricle RV Systolic Pressure: 59.59 mmHg Aorta Ao Root S of Nika.: 2.82 cm Doppler/Quantitative Measurements Mitral Valve MV Peak E-Wave: 1.17 m/s MV Peak A-Wave: 0.72 m/s P1/2t: 59.9 msec E/A Ratio: 1.63 Peak Velocity: 1.17 m/sPeak Gradient: 5.5 mmHg Mean Velocity: 0.57 m/sDeceleration Time: 229 msec Mean Gradient: 1.63 mmHg MV Area (PHT): 3.67 cm^2 MV VTI: 28.82 cm Tissue Doppler E' Septal Velocity: 0.08 m/s E' Lateral Velocity: 0.11 m/s Aortic Valve Peak Velocity: 1.81 m/sMean Velocity: 1.27 m/s Peak Gradient: 13.06 mmHgMean Gradient: 7.57 mmHg AV VTI: 33.86 cm Cusp Separation: 1.56 cm AV DVI: 0.39 LVOT Peak Velocity: 0.8 m/sPeak Gradient: 2.58 mmHg Mean Velocity: 0.54 m/s Mean Gradient: 1.4 mmHg LVOT VTI: 13.22 cm Tricuspid Valve Estimated RVSP: 59.59 mmHg Estimated RAP: 10 mmHg TR Velocity: 3.52 m/s TR Gradient: 49.59 mmHg Pulmonic Valve Estimated PASP: 59.59 mmHg Procedure Note Interface, External Ris In - 06/23/2017 9:15 AM CDT Transthoracic Echocardiography Report (TTE) Demographics Patient Name KARISHMA FAUSTIN Date of Study 06/22/2017 Gender Female Visit Number [id number] Race Unknown Accession Number [id number] Room Number B526 Date of 1940 Referring Physician Age 77 year(s) [employer]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 Interpreting Dorota Lizama MD. Physician Procedure Type of Study TTE procedure:2DECHO W DOPPLER(CW/PW/COLOR) (Routine) Indications:Dyspnea/SOB. Clinical History DEFINITY WAS USED CKD CAD HLD DM HTN MORBID OBESITY Height: 65 inches Weight: 131.54 kg (290 lbs) BSA: 2.32 m^2 BMI: 48.26 kg/m^2 HR: 73 bpm BP: 156/67 mmHg Summary Adequate endocardial definition with contrast agent. The left ventricle is normal in size, wall thickness, and contractility. The visual ejection fraction was estimated 60 %. Grade 1 diastolic dysfunction (impaired relaxation and low-normal LA pressure). Mitral regurgitation - mild. [id number] tricuspid regurgitation. Estimated peak systolic pressure is at least 50-55 mmHg. Signature Findings Technical Quality: Poor visualization due to body habitus. Left Ventricle Adequate endocardial definition with contrast agent. The left ventricle is normal in size, wall thickness, and contractility. The visual ejection fraction was estimated 60 %. Grade 1 diastolic dysfunction (impaired relaxation and low-normal LA pressure). Left Atrium The left atrium is not well visualized. The left atrium appears normal. Right Ventricle The right ventricular chamber size and systolic function are within normal limits. Right Atrium The right atrium is not well visualized. Right Atrium is upper limits of normal for size. Atrial Septum The interatrial septum is not well visualized. Aortic Valve The aortic valve is not well visualized, but appears normal. There is no aortic stenosis. There is no aortic regurgitation. Mitral Valve Mild mitral annular calcification. Mitral regurgitation - mild. Tricuspid Valve [id number] tricuspid regurgitation. Estimated peak systolic pressure is at least 50-55 mmHg. Pulmonic Valve No evidence of pulmonary regurgitation. Aorta Aortic root size (SInus of Valsalva diameter) is normal . Pericardium No pericardial effusion is visualized. IVC/SVC/PA/PV/Pleural The inferior vena cava is not well visualized. Chambers/Structures Left Atrium LA Dimension: 4.43 cm Left Ventricle LVIDd: 4.63 cm LVEDV 2D:98.7 ml LVIDs: 3.39 cm LVESV 2D:47.12 ml LV Septum Diastolic: 0.79 cm LV Septum Systolic: 1.16 cm LV PW Diastolic: 0.93 cm LV FS: 26.8 % LV PW Systolic: 1.28 cm LV ESV (Cubed):38.96 cc LV ESV (Teich):47.1 ml LV SV (Teich):51.73 ml LV SI (Teich):22.3 ml/m^2 LVEF 2D Teich: 52.3 % Right Atrium RA Systolic Pressure: 10 mmHg Right Ventricle RV Systolic Pressure: 59.59 mmHg Aorta Ao Root S of Nika.: 2.82 cm Doppler/Quantitative Measurements Mitral Valve MV Peak E-Wave: 1.17 m/s MV Peak A-Wave: 0.72 m/s P1/2t: 59.9 msec E/A Ratio: 1.63 Peak Velocity: 1.17 m/s Peak Gradient: 5.5 mmHg Mean Velocity: 0.57 m/s Deceleration Time: 229 msec Mean Gradient: 1.63 mmHg MV Area (PHT): 3.67 cm^2 MV VTI: 28.82 cm Tissue Doppler E' Septal Velocity: 0.08 m/s E' Lateral Velocity: 0.11 m/s Aortic Valve Peak Velocity: 1.81 m/s Mean Velocity: 1.27 m/s Peak Gradient: 13.06 mmHg Mean Gradient: 7.57 mmHg AV VTI: 33.86 cm Cusp Separation: 1.56 cm AV DVI: 0.39 LVOT Peak Velocity: 0.8 m/s Peak Gradient: 2.58 mmHg Mean Velocity: 0.54 m/s Mean Gradient: 1.4 mmHg LVOT VTI: 13.22 cm Tricuspid Valve Estimated RVSP: 59.59 mmHg Estimated RAP: 10 mmHg TR Velocity: 3.52 m/s TR Gradient: 49.59 mmHg Pulmonic Valve Estimated PASP: 59.59 mmHg US abdomen complete (06/22/2017 1:05 AM) Specimen Performing Laboratory [facility] Narrative FINAL REPORT History: Elevated bili ribbon Abdominal ultrasound dated June 22, 2017 Comparison: None Comment:Real-time transabdominal ultrasound of the abdomen was performed. The examination was limited by patient body habitus and inability to breath-hold. Liver: 21.0 cm , enlarged. Normal echogenicity. No focal lesions. Gallbladder: The transverse diameter of the gallbladder lumen is 5.8 cm. Gallbladder sludge, no gallstones. Diffuse gallbladder wall thickening, measuring 11 mm. Pericholecystic fluid. No sonographic Hameed's sign. Biliary tree: Limited examination but possible intrahepatic biliary ductal dilatation. CBD: 8 mm. MPV: 14 mm Spleen: Enlarged, measuring 17 cm in axial dimension. Pancreas: Unremarkable. Right kidney: 12.6 x 5.8 x 5.6 cm. 12.0 x 5.3 x 5.5. Left kidney: cm. Normal echogenicity. No ascites is present in the abdomen. The visualized abdominal aorta is normal in caliber. The IVC and Hepatic veins are patent. Impression: Limited examination, as described. Hepatosplenomegaly. Gallbladder hydrops. Gallbladder sludge is identified but no definite gallstones are seen on the images provided. There is diffuse colonic wall thickening and pericholecystic fluid. These findings are nonspecific but could reflect acute hepatitis, congestive changes or gallbladder disease. Further evaluation with hepatobiliary nuclear medicine imaging can be performed if an occult cystic duct stone is suspected. Possible intrahepatic biliary ductal dilatation. The common bile duct is prominent in caliber. Further evaluation with MRCP can be performed if clinically indicated. Signed: Earl Carias MD Report Verified Date/Time:06/22/2017 04:26:02 Reading Location: [address] Reading Room Procedure Note Interface, External Ris In - 06/22/2017 4:28 AM CDT FINAL REPORT History: Elevated bili ribbon Abdominal ultrasound dated June 22, 2017 Comparison: None Comment: Real-time transabdominal ultrasound of the abdomen was performed. The examination was limited by patient body habitus and inability to breath-hold. Liver: 21.0 cm , enlarged. Normal echogenicity. No focal lesions. Gallbladder: The transverse diameter of the gallbladder lumen is 5.8 cm. Gallbladder sludge, no gallstones. Diffuse gallbladder wall thickening, measuring 11 mm. Pericholecystic fluid. No sonographic Hameed's sign. Biliary tree: Limited examination but possible intrahepatic biliary ductal dilatation. CBD: 8 mm. MPV: 14 mm Spleen: Enlarged, measuring 17 cm in axial dimension. Pancreas: Unremarkable. Right kidney: 12.6 x 5.8 x 5.6 cm. 12.0 x 5.3 x 5.5. Left kidney: cm. Normal echogenicity. No ascites is present in the abdomen. The visualized abdominal aorta is normal in caliber. The IVC and Hepatic veins are patent. Impression: Limited examination, as described. Hepatosplenomegaly. Gallbladder hydrops. Gallbladder sludge is identified but no definite gallstones are seen on the images provided. There is diffuse colonic wall thickening and pericholecystic fluid. These findings are nonspecific but could reflect acute hepatitis, congestive changes or gallbladder disease. Further evaluation with hepatobiliary nuclear medicine imaging can be performed if an occult cystic duct stone is suspected. Possible intrahepatic biliary ductal dilatation. The common bile duct is prominent in caliber. Further evaluation with MRCP can be performed if clinically indicated. Signed: Earl Carias MD Report Verified Date/Time: 06/22/2017 04:26:02 Reading Location: [address] Reading Room Troponin I (06/21/2017 6:55 PM) Component Value Ref Range Troponin I <0.03 0.00 - 0.15 ng/mL Specimen Performing Laboratory [facility] [address] [place], [place] [id number] Narrative Troponin I (TnI) levels must be interpreted [...] failure, acidosis, acute neurological disease, and persistent tachyarrhythmia. Lipase (06/21/2017 6:55 PM) Component Value Ref Range Lipase 71 (H) 6 - 51 U/L Specimen Performing Laboratory [facility] [address] [place] [address] Hemoglobin A1c (06/21/2017 6:55 PM) Component Value Ref Range Hemoglobin A1C 9.2 (H) 4.3 - 6.1 % Specimen Performing [facility] [address] [place] [address] Creatine Kinase (CK), Total and MB (06/21/2017 6:55 PM) Component Value Ref Range Total CK 46 25 - 235 U/L CK-MB 0.9 0.0 - 4.9 ng/mL MB Relative Index 2.0 % Specimen Performing [facility] [address] [place], [place] [address] Narrative CK-MB Reference Range: <5 Normal 5-10 Borderline >10Abnormal Amylase (06/21/2017 6:55 PM) Component Value Ref Range Amylase 90 30 - 110 U/L Specimen Performing Laboratory [facility] [address] [place], [place] [address] Lipid panel (06/21/2017 6:55 PM) Component Value Ref Range Triglycerides 110 mg/dL Cholesterol 62 mg/dL HDL 11 mg/dL LDL Calculated 29 mg/dL Specimen Performing [facility] [address] [place], [place] [address] Narrative Triglyceride Reference Range: Low Risk <150 [id number] High Risk 200-499 Very High Risk>=500 Cholesterol Reference Range: Low Risk <200 [id number] High Risk>240 HDL Cholesterol Reference Range: Low Risk >=60 High Risk <40 LDL Cholesterol Reference Range: Optimal<100 Near [id number] Very High >=190 after 02/13/2017
--- OUTSIDE RECORDS SUMMARY | 2018-02-14 08:43 | XMS REPORT ---
:1940 [facility] Address [address] [place] [address] Care Team Providers Name Role Phone SERVANDO [...] TESTED AT [facility] [address] [place] [address] [phone]) [facility] [address] POCT-GLUCOSE [id number] 07:52:00 Test Item Value Reference Range Comments POC-GLUCOSE METER (BEAKER) 125 mg/dL 70-[address] [facility] [address] [place] [address] (test sqpb=2906) [facility] [address] BASIC METABOLIC [id number] 06:33:00 Test Item Value Reference Range Comments SODIUM (BEAKER) (test 137 meq/L 135-148 zbdt=073) POTASSIUM (BEAKER) (test 4.3 meq/L 3.6-5.5 mihz=868) CHLORIDE (BEAKER) (test 102 meq/L 98-106 gdis=652) CO2 (BEAKER) (test 28 meq/L 20-29 kuwt=224) BLOOD UREA NITROGEN 18 mg/dL 10-26 (BEAKER) (test fygz=194) CREATININE (BEAKER) (test 0.80 mg/dL 0.50-1.20 mnha=314) GLUCOSE RANDOM (BEAKER) 121 mg/dL 70-110 (test wkpb=773) CALCIUM (BEAKER) (test 7.9 mg/dL 8.5-10.5 dgrm=439) EGFR (BEAKER) (test 70 mL/min/1.73 sq m ESTIMATED GFR IS NOT pqkm=1142) ACCURATE CREATININE CLEARANCE IN PREDICTING GLOMERULAR FILTRATION RATE. ESTIMATED GFR IS NOT APPLICABLE FOR DIALYSIS PATIENTS. [id number] 06:31:00 Test Item Value Reference Range Comments PHOSPHORUS (BEAKER) (test dltq=040) 2.3 mg/dL 2.5-4.5 CALCIUM, [id number] 06:27:00 Test Item Value Reference Range Comments CALCIUM IONIZED (BEAKER) (test gwky=874) 1.11 mmol/L 1.12-1.27 PH, BLOOD (BEAKER) (test mcan=7135) 7.35 [id number] 06:26:00 Test Item Value Reference Range Comments MAGNESIUM (BEAKER) (test osqj=453) 1.9 mg/dL 1.5-3.0 CBC W/PLT COUNT & AUTO [id number] 06:16:00 Test Item Value Reference Range Comments WHITE BLOOD CELL COUNT (BEAKER) (test xyzm=757) 8.5 K/ L 4.0-10.0 RED BLOOD CELL COUNT (BEAKER) (test lctz=119) 2.82 M/ L 4.00-5.00 HEMOGLOBIN (BEAKER) (test sctp=640) 8.0 GM/DL 12.0-15.0 HEMATOCRIT (BEAKER) (test bbdz=731) 25.2 % 36.0-45.0 MEAN CORPUSCULAR VOLUME (BEAKER) (test jumx=962) 89.5 fL 82.0-99.0 MEAN CORPUSCULAR HEMOGLOBIN (BEAKER) (test 28.3 pg 27.0-33.0 rpei=275) MEAN CORPUSCULAR HEMOGLOBIN CONC (BEAKER) (test 31.6 GM/DL 32.0-36.0 qbnt=266) RED CELL DISTRIBUTION WIDTH (BEAKER) (test 17.1 % 10.3-14.2 ilmp=338) PLATELET COUNT (BEAKER) (test cjta=002) 204 K/CU MM 150-430 MEAN PLATELET VOLUME (BEAKER) (test feae=158) 8.2 fL 6.5-10.5 NUCLEATED RED BLOOD CELLS (BEAKER) (test 0 /100 WBC 0-0 wsud=992) NEUTROPHILS RELATIVE PERCENT (BEAKER) (test 72 % wxkw=803) LYMPHOCYTES RELATIVE PERCENT (BEAKER) (test 16 % lkmr=679) MONOCYTES RELATIVE PERCENT (BEAKER) (test 10 % feui=818) EOSINOPHILS RELATIVE PERCENT (BEAKER) (test 2 % wssk=528) BASOPHILS RELATIVE PERCENT (BEAKER) (test 0 % pxdw=492) NEUTROPHILS ABSOLUTE COUNT (BEAKER) (test 6.10 K/ L 1.80-8.00 owkb=783) LYMPHOCYTES ABSOLUTE COUNT (BEAKER) (test 1.30 K/ L 1.48-4.50 zric=914) MONOCYTES ABSOLUTE COUNT (BEAKER) (test 0.90 K/ L 0.00-1.30 mfwb=229) EOSINOPHILS ABSOLUTE COUNT (BEAKER) (test 0.20 K/ L 0.00-0.50 llcl=414) BASOPHILS ABSOLUTE COUNT (BEAKER) (test 0.00 K/ L 0.00-0.20 pdge=456) POCT-GLUCOSE [id number] 20:23:00 Test Item Value Reference Range Comments POC-GLUCOSE METER (BEAKER) 178 mg/dL 70-110 TESTED AT [address] (test xgwj=1265) [facility] [address] POCT-GLUCOSE [id number] 16:21:00 Test Item Value Reference Range Comments POC-GLUCOSE METER (BEAKER) 187 mg/dL 70-110 TESTED AT [address] (test bapg=8628) [facility] [address] POCT-GLUCOSE [id number] 11:50:00 Test Item Value Reference Range Comments POC-GLUCOSE METER (BEAKER) 157 mg/dL 70-110 TESTED AT [address] (test daki=3957) [facility] [address] POCT-GLUCOSE [id number] 07:41:00 Test Item Value Reference Range Comments POC-GLUCOSE METER (BEAKER) 132 mg/dL 70-110 TESTED AT [address] (test svaf=2196) [facility] [address] BASIC METABOLIC [id number] 06:37:00 Test Item Value Reference Range Comments SODIUM (BEAKER) (test 141 meq/L 135-148 knsk=692) POTASSIUM (BEAKER) (test 3.4 meq/L 3.6-5.5 ziag=969) CHLORIDE (BEAKER) (test 104 meq/L 98-106 cyju=847) CO2 (BEAKER) (test 28 meq/L 20-29 scrd=369) BLOOD UREA NITROGEN 20 mg/dL 10-26 (BEAKER) (test vxst=480) CREATININE (BEAKER) (test 0.80 mg/dL 0.50-1.20 rzrh=978) GLUCOSE RANDOM (BEAKER) 129 mg/dL 70-110 (test uald=379) CALCIUM (BEAKER) (test 8.1 mg/dL 8.5-10.5 thvx=492) EGFR (BEAKER) (test 70 mL/min/1.73 sq m ESTIMATED GFR IS NOT sghy=4515) ACCURATE CREATININE CLEARANCE IN PREDICTING GLOMERULAR FILTRATION RATE. ESTIMATED GFR IS NOT APPLICABLE FOR DIALYSIS PATIENTS. [id number] 06:31:00 Test Item Value Reference Range Comments TRIGLYCERIDES (BEAKER) (test vxng=913) 108 mg/dL TRIGLYCERIDE REFERENCE RANGELow Risk <150Borderline Risk 150-199High Risk 200-499Very High Risk>=[id number] 06:30:00 Test Item Value Reference Range Comments MAGNESIUM (BEAKER) (test cnrz=192) 1.8 mg/dL 1.5-3.0 [id number] 05:53:00 Test Item Value Reference Range Comments PHOSPHORUS (BEAKER) (test xpyq=341) 2.4 mg/dL 2.5-4.5 CALCIUM, [id number] 05:48:00 Test Item Value Reference Range Comments CALCIUM IONIZED (BEAKER) (test vays=513) 1.11 mmol/L 1.12-1.27 PH, BLOOD (BEAKER) (test idqv=1875) 7.37 CBC W/PLT COUNT & AUTO [id number] 05:45:00 Test Item Value Reference Range Comments WHITE BLOOD CELL COUNT (BEAKER) (test czkk=491) 9.9 K/ L 4.0-10.0 RED BLOOD CELL COUNT (BEAKER) (test lzqe=061) 2.92 M/ L 4.00-5.00 HEMOGLOBIN (BEAKER) (test tsfi=918) 8.3 GM/DL 12.0-15.0 HEMATOCRIT (BEAKER) (test idvb=121) 26.2 % 36.0-45.0 MEAN CORPUSCULAR VOLUME (BEAKER) (test chia=467) 89.6 fL 82.0-99.0 MEAN CORPUSCULAR HEMOGLOBIN (BEAKER) (test 28.3 pg 27.0-33.0 iamm=338) MEAN CORPUSCULAR HEMOGLOBIN CONC (BEAKER) (test 31.6 GM/DL 32.0-36.0 nfeq=696) RED CELL DISTRIBUTION WIDTH (BEAKER) (test 17.2 % 10.3-14.2 rioi=564) PLATELET COUNT (BEAKER) (test ushe=620) 236 K/CU MM 150-430 MEAN PLATELET VOLUME (BEAKER) (test qpev=045) 7.8 fL 6.5-10.5 NUCLEATED RED BLOOD CELLS (BEAKER) (test 0 /100 WBC 0-0 gmtz=093) NEUTROPHILS RELATIVE PERCENT (BEAKER) (test 80 % vtet=715) LYMPHOCYTES RELATIVE PERCENT (BEAKER) (test 13 % pxrq=993) MONOCYTES RELATIVE PERCENT (BEAKER) (test 6 % ulcb=431) EOSINOPHILS RELATIVE PERCENT (BEAKER) (test 2 % fxbn=121) BASOPHILS RELATIVE PERCENT (BEAKER) (test 0 % bcab=548) NEUTROPHILS ABSOLUTE COUNT (BEAKER) (test 7.90 K/ L 1.80-8.00 qvsf=396) LYMPHOCYTES ABSOLUTE COUNT (BEAKER) (test 1.30 K/ L 1.48-4.50 moxb=789) MONOCYTES ABSOLUTE COUNT (BEAKER) (test 0.50 K/ L 0.00-1.30 zhhd=822) EOSINOPHILS ABSOLUTE COUNT (BEAKER) (test 0.20 K/ L 0.00-0.50 fccn=030) BASOPHILS ABSOLUTE COUNT (BEAKER) (test 0.00 K/ L 0.00-0.20 algw=681) POCT-GLUCOSE [id number] 21:07:00 Test Item Value Reference Range Comments POC-GLUCOSE METER (BEAKER) 124 mg/dL 70-[address] [facility] [address] [place] [address] (test xoss=0831) [address] [facility] [address] POCT-GLUCOSE [id number] 18:02:00 Test Item Value Reference Range Comments POC-GLUCOSE METER (BEAKER) 132 mg/dL 70-[address] [facility] [address] [facility] (test uxwn=1705) [facility] [address] POCT-GLUCOSE [id number] 11:53:00 Test Item Value Reference Range Comments POC-GLUCOSE METER (BEAKER) 187 mg/dL 70-[address] [facility] [address] [facility] (test rpar=1267) [facility] [address] BASIC METABOLIC [id number] 06:04:00 Test Item Value Reference Range Comments SODIUM (BEAKER) (test 144 meq/L 135-148 qxjm=134) POTASSIUM (BEAKER) (test 3.2 meq/L 3.6-5.5 sniu=519) CHLORIDE (BEAKER) (test 105 meq/L 98-106 elze=192) CO2 (BEAKER) (test 27 meq/L 20-29 rjxb=318) BLOOD UREA NITROGEN 26 mg/dL 10-26 (BEAKER) (test pnmx=871) CREATININE (BEAKER) (test 0.90 mg/dL 0.50-1.20 oztj=401) GLUCOSE RANDOM (BEAKER) 231 mg/dL 70-110 (test tvaz=762) CALCIUM (BEAKER) (test 8.1 mg/dL 8.5-10.5 nzwe=780) EGFR (BEAKER) (test 61 mL/min/1.73 sq m ESTIMATED GFR IS NOT avto=0060) ACCURATE CREATININE CLEARANCE IN PREDICTING GLOMERULAR FILTRATION RATE. ESTIMATED GFR IS NOT APPLICABLE FOR DIALYSIS PATIENTS. [id number] 06:02:00 Test Item Value Reference Range Comments PHOSPHORUS (BEAKER) (test wvfo=622) 3.0 mg/dL 2.5-4.5 CBC W/PLT COUNT & AUTO [id number] 06:01:00 Test Item Value Reference Range Comments WHITE BLOOD CELL COUNT (BEAKER) (test vkfu=343) 11.7 K/ L 4.0-10.0 RED BLOOD CELL COUNT (BEAKER) (test hewh=800) 2.90 M/ L 4.00-5.00 HEMOGLOBIN (BEAKER) (test pfny=257) 8.2 GM/DL 12.0-15.0 HEMATOCRIT (BEAKER) (test gfnw=977) 26.1 % 36.0-45.0 MEAN CORPUSCULAR VOLUME (BEAKER) (test geky=270) 90.0 fL 82.0-99.0 MEAN CORPUSCULAR HEMOGLOBIN (BEAKER) (test 28.3 pg 27.0-33.0 qeps=557) MEAN CORPUSCULAR HEMOGLOBIN CONC (BEAKER) (test 31.5 GM/DL 32.0-36.0 anwh=973) RED CELL DISTRIBUTION WIDTH (BEAKER) (test 16.8 % 10.3-14.2 wtgz=538) PLATELET COUNT (BEAKER) (test pbnh=127) 221 K/CU MM 150-430 MEAN PLATELET VOLUME (BEAKER) (test zoxf=972) 7.8 fL 6.5-10.5 NUCLEATED RED BLOOD CELLS (BEAKER) (test 0 /100 WBC 0-0 fzpr=438) NEUTROPHILS RELATIVE PERCENT (BEAKER) (test 89 % pflo=513) LYMPHOCYTES RELATIVE PERCENT (BEAKER) (test 9 % lhmy=866) MONOCYTES RELATIVE PERCENT (BEAKER) (test 1 % iasl=663) EOSINOPHILS RELATIVE PERCENT (BEAKER) (test 1 % ifum=191) BASOPHILS RELATIVE PERCENT (BEAKER) (test 0 % pxel=329) NEUTROPHILS ABSOLUTE COUNT (BEAKER) (test 10.50 K/ L 1.80-8.00 gdhx=662) LYMPHOCYTES ABSOLUTE COUNT (BEAKER) (test 1.00 K/ L 1.48-4.50 kfcx=922) MONOCYTES ABSOLUTE COUNT (BEAKER) (test 0.10 K/ L 0.00-1.30 ayzl=669) EOSINOPHILS ABSOLUTE COUNT (BEAKER) (test 0.10 K/ L 0.00-0.50 hmfz=153) BASOPHILS ABSOLUTE COUNT (BEAKER) (test 0.00 K/ L 0.00-0.20 ckuo=083) [id number] 05:58:00 Test Item Value Reference Range Comments MAGNESIUM (BEAKER) (test biyc=035) 2.2 mg/dL 1.5-3.0 CALCIUM, [id number] 05:49:00 Test Item Value Reference Range Comments CALCIUM IONIZED (BEAKER) (test ikcc=933) 1.06 mmol/L 1.12-1.27 PH, BLOOD (BEAKER) (test aubo=6784) 7.39 POCT-GLUCOSE [id number] 00:14:00 Test Item Value Reference Range Comments POC-GLUCOSE METER (BEAKER) 304 mg/dL 70-110 Notified TULIO HOBBS/TESTED AT [facility] (test sbxv=8637) [address] [facility] [address] POCT-GLUCOSE [id number] 23:35:00 Test Item Value Reference Range Comments POC-GLUCOSE METER (BEAKER) 272 mg/dL 70-[address] [facility] [address] [facility] (test wrff=2010) [facility] [address] POCT-GLUCOSE [id number] 17:13:00 Test Item Value Reference Range Comments POC-GLUCOSE METER (BEAKER) 199 mg/dL 70-[address] [facility] [address] [facility] (test fgym=4540) [facility] [address] CBC W/PLT COUNT & AUTO [id number] 16:45:00 Test Item Value Reference Range Comments WHITE BLOOD CELL COUNT (BEAKER) (test ivdg=583) 12.9 K/ L 4.0-10.0 RED BLOOD CELL COUNT (BEAKER) (test xpke=226) 2.83 M/ L 4.00-5.00 HEMOGLOBIN (BEAKER) (test lsac=994) 8.0 GM/DL 12.0-15.0 HEMATOCRIT (BEAKER) (test ooxs=498) 25.2 % 36.0-45.0 MEAN CORPUSCULAR VOLUME (BEAKER) (test dnth=944) 89.3 fL 82.0-99.0 MEAN CORPUSCULAR HEMOGLOBIN (BEAKER) (test 28.4 pg 27.0-33.0 wpua=459) MEAN CORPUSCULAR HEMOGLOBIN CONC (BEAKER) (test 31.8 GM/DL 32.0-36.0 dpck=136) RED CELL DISTRIBUTION WIDTH (BEAKER) (test 16.5 % 10.3-14.2 zccp=476) PLATELET COUNT (BEAKER) (test hijt=541) 234 K/CU MM 150-430 MEAN PLATELET VOLUME (BEAKER) (test fovi=726) 7.4 fL 6.5-10.5 NUCLEATED RED BLOOD CELLS (BEAKER) (test 0 /100 WBC 0-0 oaga=329) NEUTROPHILS RELATIVE PERCENT (BEAKER) (test 82 % poad=205) LYMPHOCYTES RELATIVE PERCENT (BEAKER) (test 10 % nytn=765) MONOCYTES RELATIVE PERCENT (BEAKER) (test 8 % shea=501) EOSINOPHILS RELATIVE PERCENT (BEAKER) (test 0 % ifgq=801) BASOPHILS RELATIVE PERCENT (BEAKER) (test 0 % cdwf=295) NEUTROPHILS ABSOLUTE COUNT (BEAKER) (test 10.60 K/ L 1.80-8.00 emka=062) LYMPHOCYTES ABSOLUTE COUNT (BEAKER) (test 1.20 K/ L 1.48-4.50 yfbj=056) MONOCYTES ABSOLUTE COUNT (BEAKER) (test 1.10 K/ L 0.00-1.30 zxaf=122) EOSINOPHILS ABSOLUTE COUNT (BEAKER) (test 0.00 K/ L 0.00-0.50 kbbn=784) BASOPHILS ABSOLUTE COUNT (BEAKER) (test 0.00 K/ L 0.00-0.20 ivod=100) POCT-GLUCOSE [id number] 15:57:00 Test Item Value Reference Range Comments POC-GLUCOSE METER (BEAKER) 121 mg/dL 70-110 TESTED AT [address] (test rucc=8576) [facility] [address] POCT-GLUCOSE [id number] 14:46:00 Test Item Value Reference Range Comments POC-GLUCOSE METER (BEAKER) 103 mg/dL 70-110 TESTED AT [address] (test msgs=6152) [facility] [address] POCT-GLUCOSE [id number] 13:15:00 Test Item Value Reference Range Comments POC-GLUCOSE METER (BEAKER) 151 mg/dL 70-110 TESTED AT [address] (test ufmt=5180) [facility] [address] POCT-GLUCOSE [id number] 11:30:00 Test Item Value Reference Range Comments POC-GLUCOSE METER (BEAKER) 126 mg/dL 70-110 TESTED AT [address] (test fgyw=0364) [facility] [address] BLOOD GAS, [id number] 11:09:00 Test Item Value Reference Range Comments PH ARTERIAL (BEAKER) (test gchr=708) 7.52 7.35-7.45 PCO2 ARTERIAL (BEAKER) (test llvg=353) 35 mmHg 35-45 PO2 ARTERIAL (BEAKER) (test qzcd=949) 92 mmHg 80-90 O2 SATURATION ARTERIAL (BEAKER) (test xpwd=625) 97.6 % 96.0-97.0 HCO3 ARTERIAL (BEAKER) (test aqiw=355) 28 mmol/L 21-29 BASE EXCESS ARTERIAL (BEAKER) (test muvi=008) 5.1 mmol/L -2.0-3.0 PATIENT TEMPERATURE (BEAKER) (test jqea=1705) 37.5 C FIO2 (BEAKER) (test jzmr=1276) 40.0 % POCT-GLUCOSE [id number] 09:44:00 Test Item Value Reference Range Comments POC-GLUCOSE METER (BEAKER) 134 mg/dL 70-[address] [facility] [address] [facility] (test jkfl=4869) [address] [facility] [address] TISSUE [id number] 09:34:00Surgical Pathology Report Case: [id number] Authorizing Provider: Genaro Arrington MD Collected: 06/26/2017 1117 Ordering Location: [address] Med/Surg Received: 06/26/2017 1236 Pathologist: Andie Haines MD Specimen: Gallbladder GALLBLADDER, CHOLECYSTECTOMY: - ACUTE GANGRENOUS CHOLECYSTITIS - CHOLELITHIASIS Electronically signed by Andie Haines MD on 2016 at 9:34 AMMG/[id number] cholecystitis Gallbladder Specimen is received without fixative [...] identified ranging in size from 0.2 cm. [employer] sections of the gallbladder mucosa, cystic duct and purulent exudate are submitted into A1. MG/ew Sections show gallbladder mucosa and wall with extensive acute inflammation and granulation tissue formation. Necrosis is identified throughout the entire thickness of the wall with surrounding pericholecystic fat necrosis. No dysplasia or malignancy is seen.POCT-GLUCOSE [id number] 07:20:00 Test Item Value Reference Range Comments POC-GLUCOSE METER (BEAKER) 144 mg/dL 70-[address] [facility] [address] [facility] (test ebkv=1692) [facility] [address] BASIC METABOLIC [id number] 05:33:00 Test Item Value Reference Range Comments SODIUM (BEAKER) (test 150 meq/L 135-148 meni=846) POTASSIUM (BEAKER) (test 3.0 meq/L 3.6-5.5 mlfj=601) CHLORIDE (BEAKER) (test 110 meq/L 98-106 dgii=760) CO2 (BEAKER) (test 26 meq/L 20-29 dpio=444) BLOOD UREA NITROGEN 34 mg/dL 10-26 (BEAKER) (test ibcr=326) CREATININE (BEAKER) (test 1.00 mg/dL 0.50-1.20 rtbf=761) GLUCOSE RANDOM (BEAKER) 140 mg/dL 70-110 (test llaf=242) CALCIUM (BEAKER) (test 8.2 mg/dL 8.5-10.5 zaaz=484) EGFR (BEAKER) (test 54 mL/min/1.73 sq m ESTIMATED GFR IS NOT hryc=6553) ACCURATE CREATININE CLEARANCE IN PREDICTING GLOMERULAR FILTRATION RATE. ESTIMATED GFR IS NOT APPLICABLE FOR DIALYSIS PATIENTS. [id number] 05:23:00 Test Item Value Reference Range Comments PHOSPHORUS (BEAKER) (test qysn=080) 2.0 mg/dL 2.5-4.5 POCT-GLUCOSE [id number] 05:21:00 Test Item Value Reference Range Comments POC-GLUCOSE METER (BEAKER) 150 mg/dL 70-110 TESTED AT [address] (test ccya=1723) [facility] [address] [id number] 05:20:00 Test Item Value Reference Range Comments POTASSIUM (BEAKER) (test txki=070) 3.0 meq/L 3.6-5.5 [id number] 05:18:00 Test Item Value Reference Range Comments MAGNESIUM (BEAKER) (test prdf=436) 2.0 mg/dL 1.5-3.0 CBC W/PLT COUNT & AUTO [id number] 05:05:00 Test Item Value Reference Range Comments WHITE BLOOD CELL COUNT (BEAKER) (test dclt=642) 12.3 K/ L 4.0-10.0 RED BLOOD CELL COUNT (BEAKER) (test jdqq=411) 2.82 M/ L 4.00-5.00 HEMOGLOBIN (BEAKER) (test gafl=922) 7.9 GM/DL 12.0-15.0 HEMATOCRIT (BEAKER) (test qdqd=036) 25.0 % 36.0-45.0 MEAN CORPUSCULAR VOLUME (BEAKER) (test dkst=285) 88.5 fL 82.0-99.0 MEAN CORPUSCULAR HEMOGLOBIN (BEAKER) (test 28.2 pg 27.0-33.0 zupb=229) MEAN CORPUSCULAR HEMOGLOBIN CONC (BEAKER) (test 31.8 GM/DL 32.0-36.0 ford=015) RED CELL DISTRIBUTION WIDTH (BEAKER) (test 16.4 % 10.3-14.2 vrnz=365) PLATELET COUNT (BEAKER) (test zekq=548) 225 K/CU MM 150-430 MEAN PLATELET VOLUME (BEAKER) (test kyiq=553) 8.2 fL 6.5-10.5 NUCLEATED RED BLOOD CELLS (BEAKER) (test 0 /100 WBC 0-0 jzlg=666) NEUTROPHILS RELATIVE PERCENT (BEAKER) (test 83 % ygpc=756) LYMPHOCYTES RELATIVE PERCENT (BEAKER) (test 10 % dpht=602) MONOCYTES RELATIVE PERCENT (BEAKER) (test 8 % xprt=514) EOSINOPHILS RELATIVE PERCENT (BEAKER) (test 0 % uitj=365) BASOPHILS RELATIVE PERCENT (BEAKER) (test 0 % zfcr=458) NEUTROPHILS ABSOLUTE COUNT (BEAKER) (test 10.10 K/ L 1.80-8.00 vlwj=130) LYMPHOCYTES ABSOLUTE COUNT (BEAKER) (test 1.20 K/ L 1.48-4.50 wxrn=635) MONOCYTES ABSOLUTE COUNT (BEAKER) (test 1.00 K/ L 0.00-1.30 rmjk=496) EOSINOPHILS ABSOLUTE COUNT (BEAKER) (test 0.00 K/ L 0.00-0.50 kpcc=197) BASOPHILS ABSOLUTE COUNT (BEAKER) (test 0.00 K/ L 0.00-0.20 zcry=555) POCT-GLUCOSE [id number] 04:49:00 Test Item Value Reference Range Comments POC-GLUCOSE METER (BEAKER) 150 mg/dL 70-110 TESTED AT [address] (test lnhv=0423) [facility] [address] BLOOD GAS, [id number] 04:09:00 Test Item Value Reference Range Comments PH ARTERIAL (BEAKER) (test rfnx=388) 7.55 7.35-7.45 PCO2 ARTERIAL (BEAKER) (test vnzf=842) 37 mmHg 35-45 PO2 ARTERIAL (BEAKER) (test dyfj=890) 70 mmHg 80-90 O2 SATURATION ARTERIAL (BEAKER) (test xwfm=378) 95.8 % 96.0-97.0 HCO3 ARTERIAL (BEAKER) (test vdto=258) 32 mmol/L 21-29 BASE EXCESS ARTERIAL (BEAKER) (test ujix=488) 8.7 mmol/L -2.0-3.0 PATIENT TEMPERATURE (BEAKER) (test chbu=7614) 37.0 C FIO2 (BEAKER) (test iqsg=4607) 40.0 % POCT-GLUCOSE [id number] 03:08:00 Test Item Value Reference Range Comments POC-GLUCOSE METER (BEAKER) 145 mg/dL 70-110 TESTED AT [address] (test wnpo=9623) [facility] [address] POCT-GLUCOSE [id number] 02:24:00 Test Item Value Reference Range Comments POC-GLUCOSE METER (BEAKER) 159 mg/dL 70-110 TESTED AT [address] (test snmj=3686) [facility] [address] POCT-GLUCOSE [id number] 01:13:00 Test Item Value Reference Range Comments POC-GLUCOSE METER (BEAKER) 168 mg/dL 70-110 TESTED AT [address] (test duet=3769) [facility] [address] POCT-GLUCOSE [id number] 00:35:00 Test Item Value Reference Range Comments POC-GLUCOSE METER (BEAKER) 196 mg/dL 70-110 TESTED AT [address] (test ejwy=9965) [facility] [address] POCT-GLUCOSE [id number] 23:21:00 Test Item Value Reference Range Comments POC-GLUCOSE METER (BEAKER) 183 mg/dL 70-110 TESTED AT [address] (test fohc=4514) [facility] [address] POCT-GLUCOSE [id number] 22:03:00 Test Item Value Reference Range Comments POC-GLUCOSE METER (BEAKER) 185 mg/dL 70-110 TESTED AT [address] (test qwln=5417) [facility] [address] POCT-GLUCOSE [id number] 20:58:00 Test Item Value Reference Range Comments POC-GLUCOSE METER (BEAKER) 186 mg/dL 70-110 TESTED AT [address] (test qpnf=1774) [facility] [address] POCT-GLUCOSE [id number] 20:22:00 Test Item Value Reference Range Comments POC-GLUCOSE METER (BEAKER) 145 mg/dL 70-110 TESTED AT [address] (test wgak=1649) [facility] [address] POCT-GLUCOSE [id number] 20:22:00 Test Item Value Reference Range Comments POC-GLUCOSE METER (BEAKER) 120 mg/dL 70-110 TESTED AT [address] (test qqrv=4339) [facility] [address] POCT-GLUCOSE [id number] 20:21:00 Test Item Value Reference Range Comments POC-GLUCOSE METER (BEAKER) 88 mg/dL 70-110 TESTED AT [address] (test qqgy=0411) [facility] [address] POCT-GLUCOSE [id number] 20:20:00 Test Item Value Reference Range Comments POC-GLUCOSE METER (BEAKER) 79 mg/dL 70-110 TESTED AT [address] (test pqjo=6802) [facility] [address] POCT-GLUCOSE [id number] 20:20:00 Test Item Value Reference Range Comments POC-GLUCOSE METER (BEAKER) 144 mg/dL 70-110 TESTED AT [address] (test kvkf=1144) [facility] [address] POCT-GLUCOSE [id number] 20:20:00 Test Item Value Reference Range Comments POC-GLUCOSE METER (BEAKER) 75 mg/dL 70-110 TESTED AT [address] (test dpng=2101) [facility] [address] POCT-GLUCOSE [id number] 20:19:00 Test Item Value Reference Range Comments POC-GLUCOSE METER (BEAKER) 69 mg/dL 70-110 TESTED AT [address] (test dejk=9967) [facility] [address] POCT-GLUCOSE [id number] 20:19:00 Test Item Value Reference Range Comments POC-GLUCOSE METER (BEAKER) 84 mg/dL 70-110 TESTED AT [address] (test ghlw=2279) [facility] [address] POCT-GLUCOSE [id number] 20:18:00 Test Item Value Reference Range Comments POC-GLUCOSE METER (BEAKER) 161 mg/dL 70-110 TESTED AT [address] (test zmhs=3717) [facility] [address] POCT-GLUCOSE [id number] 20:17:00 Test Item Value Reference Range Comments POC-GLUCOSE METER (BEAKER) 207 mg/dL 70-110 TESTED AT [address] (test qvhn=1891) [facility] [address] POCT-GLUCOSE [id number] 20:14:00 Test Item Value Reference Range Comments POC-GLUCOSE METER (BEAKER) 177 mg/dL 70-110 TESTED AT [address] (test wqul=2219) [facility] [address] POCT-GLUCOSE [id number] 20:13:00 Test Item Value Reference Range Comments POC-GLUCOSE METER (BEAKER) 163 mg/dL 70-110 TESTED AT [address] (test indz=0032) [facility] [address] POCT-GLUCOSE [id number] 20:13:00 Test Item Value Reference Range Comments POC-GLUCOSE METER (BEAKER) 174 mg/dL 70-110 TESTED AT [address] (test nred=2010) [facility] [address] POCT-GLUCOSE [id number] 20:10:00 Test Item Value Reference Range Comments POC-GLUCOSE METER (BEAKER) 160 mg/dL 70-110 TESTED AT [address] (test ndwg=3239) [facility] [address] POCT-GLUCOSE [id number] 20:04:00 Test Item Value Reference Range Comments POC-GLUCOSE METER (BEAKER) 107 mg/dL 70-110 TESTED AT [address] (test eoal=0608) [facility] [address] POCT-GLUCOSE [id number] 20:03:00 Test Item Value Reference Range Comments POC-GLUCOSE METER (BEAKER) 79 mg/dL 70-110 TESTED AT [address] (test bkno=9539) [facility] [address] POCT-GLUCOSE [id number] 20:03:00 Test Item Value Reference Range Comments POC-GLUCOSE METER (BEAKER) 118 mg/dL 70-110 TESTED AT [address] (test npst=2026) [facility] [address] POCT-GLUCOSE [id number] 20:02:00 Test Item Value Reference Range Comments POC-GLUCOSE METER (BEAKER) 148 mg/dL 70-110 TESTED AT [address] (test cncw=0462) [facility] [address] POCT-GLUCOSE [id number] 20:02:00 Test Item Value Reference Range Comments POC-GLUCOSE METER (BEAKER) 143 mg/dL 70-110 TESTED AT [address] (test kgjw=1695) [facility] [address] POCT-GLUCOSE [id number] 20:01:00 Test Item Value Reference Range Comments POC-GLUCOSE METER (BEAKER) 142 mg/dL 70-110 TESTED AT [address] (test etkk=2445) [facility] [address] POCT-GLUCOSE [id number] 20:01:00 Test Item Value Reference Range Comments POC-GLUCOSE METER (BEAKER) 93 mg/dL 70-110 TESTED AT [address] (test rifl=0545) [facility] [address] POCT-GLUCOSE [id number] 20:01:00 Test Item Value Reference Range Comments POC-GLUCOSE METER (BEAKER) 87 mg/dL 70-110 TESTED AT [address] (test tiuv=9191) [facility] [address] POCT-GLUCOSE [id number] 19:59:00 Test Item Value Reference Range Comments POC-GLUCOSE METER (BEAKER) 100 mg/dL 70-[address] [facility] [address] [facility] (test xbbq=7552) [facility] [address] POCT-GLUCOSE [id number] 19:58:00 Test Item Value Reference Range Comments POC-GLUCOSE METER (BEAKER) 131 mg/dL 70-[address] [facility] [address] [place] [address] (test pjmr=3982) [facility] [address] POCT-GLUCOSE [id number] 19:57:00 Test Item Value Reference Range Comments POC-GLUCOSE METER (BEAKER) 138 mg/dL 70-[address] [facility] [address] [place] [address] (test gtyh=0180) [facility] [address] POCT-GLUCOSE [id number] 19:55:00 Test Item Value Reference Range Comments POC-GLUCOSE METER (BEAKER) 149 mg/dL 70-[address] [facility] [address] [place] [address] (test pucr=0900) [facility] [address] POCT-GLUCOSE [id number] 19:55:00 Test Item Value Reference Range Comments POC-GLUCOSE METER (BEAKER) 154 mg/dL 70-[address] [facility] [address] [place] [address] (test tikk=2134) [facility] [address] SPUTUM CULTURE + GRAM [id number] 10:30:00 Test Item Value Reference Range Comments CULTURE (BEAKER) (test 2+ Normal respiratory albina aehn=8533) present GRAM STAIN RESULT (BEAKER) 2+ White blood cells seen (test vgvh=7654) GRAM STAIN RESULT (BEAKER) 0-5 epithelial cells (test oqxw=84853) GRAM STAIN RESULT (BEAKER) 1+ gram positive cocci in (test rhux=62552) chains, pairs and clusters BLOOD GAS, [id number] 06:36:00 Test Item Value Reference Range Comments PH ARTERIAL (BEAKER) (test tyeg=298) 7.54 7.35-7.45 PCO2 ARTERIAL (BEAKER) (test jhbv=038) 32 mm Hg 35-45 PO2 ARTERIAL (BEAKER) (test qans=170) 123 mm Hg 80-90 O2 SATURATION ARTERIAL (BEAKER) (test vywt=690) 98.8 % 96.0-97.0 HCO3 ARTERIAL (BEAKER) (test vslp=290) 26 mmol/L 21-29 BASE EXCESS ARTERIAL (BEAKER) (test llri=178) 3.8 mmol/L -2.0-3.0 CBC W/PLT COUNT & AUTO [id number] 06:16:00 Test Item Value Reference Range Comments WHITE BLOOD CELL COUNT (BEAKER) (test wcjj=402) 14.8 K/ L 4.0-10.0 RED BLOOD CELL COUNT (BEAKER) (test qybi=543) 2.73 M/ L 4.00-5.00 HEMOGLOBIN (BEAKER) (test tjnp=067) 7.7 GM/DL 12.0-15.0 HEMATOCRIT (BEAKER) (test fiby=397) 23.9 % 36.0-45.0 MEAN CORPUSCULAR VOLUME (BEAKER) (test xnbb=984) 87.5 fL 82.0-99.0 MEAN CORPUSCULAR HEMOGLOBIN (BEAKER) (test 28.2 pg 27.0-33.0 cged=459) MEAN CORPUSCULAR HEMOGLOBIN CONC (BEAKER) (test 32.3 GM/DL 32.0-36.0 nvoy=973) RED CELL DISTRIBUTION WIDTH (BEAKER) (test 15.7 % 10.3-14.2 zucf=758) PLATELET COUNT (BEAKER) (test fhfd=485) 227 K/CU MM 150-430 MEAN PLATELET VOLUME (BEAKER) (test parx=362) 7.8 fL 6.5-10.5 NUCLEATED RED BLOOD CELLS (BEAKER) (test 0 /100 WBC 0-0 djwu=409) NEUTROPHILS RELATIVE PERCENT (BEAKER) (test 85 % rzen=836) LYMPHOCYTES RELATIVE PERCENT (BEAKER) (test 7 % joym=037) MONOCYTES RELATIVE PERCENT (BEAKER) (test 8 % tdwr=666) EOSINOPHILS RELATIVE PERCENT (BEAKER) (test 0 % glmy=972) BASOPHILS RELATIVE PERCENT (BEAKER) (test 0 % thnw=188) NEUTROPHILS ABSOLUTE COUNT (BEAKER) (test 12.60 K/ L 1.80-8.00 opcj=614) LYMPHOCYTES ABSOLUTE COUNT (BEAKER) (test 1.00 K/ L 1.48-4.50 nqtd=621) MONOCYTES ABSOLUTE COUNT (BEAKER) (test 1.20 K/ L 0.00-1.30 yhnk=538) EOSINOPHILS ABSOLUTE COUNT (BEAKER) (test 0.00 K/ L 0.00-0.50 ypym=285) BASOPHILS ABSOLUTE COUNT (BEAKER) (test 0.00 K/ L 0.00-0.20 ebxr=228) [id number] 06:04:00 Test Item Value Reference Range Comments MAGNESIUM (BEAKER) (test icri=468) 1.9 mg/dL 1.5-3.0 [id number] 06:04:00 Test Item Value Reference Range Comments PHOSPHORUS (BEAKER) (test vlif=353) 2.1 mg/dL 2.5-4.5 BASIC METABOLIC [id number] 06:03:00 Test Item Value Reference Range Comments SODIUM (BEAKER) (test 146 meq/L 135-148 ocfz=159) POTASSIUM (BEAKER) (test 3.6 meq/L 3.6-5.5 hwzr=792) CHLORIDE (BEAKER) (test 107 meq/L 98-106 arjv=117) CO2 (BEAKER) (test 26 meq/L 20-29 icqy=270) BLOOD UREA NITROGEN 41 mg/dL 10-26 (BEAKER) (test caad=889) CREATININE (BEAKER) (test 1.10 mg/dL 0.50-1.20 ywup=392) GLUCOSE RANDOM (BEAKER) 64 mg/dL 70-110 (test cxrf=101) CALCIUM (BEAKER) (test 8.4 mg/dL 8.5-10.5 uwgy=735) EGFR (BEAKER) (test 48 mL/min/1.73 sq m ESTIMATED GFR IS NOT mbsq=7963) ACCURATE CREATININE CLEARANCE IN PREDICTING GLOMERULAR FILTRATION RATE. ESTIMATED GFR IS NOT APPLICABLE FOR DIALYSIS PATIENTS. POCT-GLUCOSE [id number] 14:08:00 Test Item Value Reference Range Comments POC-GLUCOSE METER (BEAKER) 91 mg/dL 70-110 TESTED AT [address] (test bskj=2152) [facility] [address] POCT-GLUCOSE [id number] 13:06:00 Test Item Value Reference Range Comments POC-GLUCOSE METER (BEAKER) 99 mg/dL 70-110 TESTED AT [address] (test molw=3611) [facility] [address] POCT-GLUCOSE [id number] 12:06:00 Test Item Value Reference Range Comments POC-GLUCOSE METER (BEAKER) 120 mg/dL 70-110 TESTED AT [address] (test pcbr=1386) [facility] [address] POCT-GLUCOSE [id number] 11:10:00 Test Item Value Reference Range Comments POC-GLUCOSE METER (BEAKER) 130 mg/dL 70-110 TESTED AT [address] (test mtiy=9679) [facility] [address] POCT-GLUCOSE [id number] 10:10:00 Test Item Value Reference Range Comments POC-GLUCOSE METER (BEAKER) 127 mg/dL 70-110 TESTED AT [address] (test incz=8892) [facility] [address] POCT-GLUCOSE [id number] 09:11:00 Test Item Value Reference Range Comments POC-GLUCOSE METER (BEAKER) 138 mg/dL 70-110 TESTED AT [address] (test ymip=8050) [facility] [address] POCT-GLUCOSE [id number] 08:07:00 Test Item Value Reference Range Comments POC-GLUCOSE METER (BEAKER) 154 mg/dL 70-110 TESTED AT [address] (test rier=1487) [facility] [address] POCT-GLUCOSE [id number] 07:03:00 Test Item Value Reference Range Comments POC-GLUCOSE METER (BEAKER) 166 mg/dL 70-110 TESTED AT [address] (test bmki=4482) [facility] [address] BASIC METABOLIC [id number] 06:43:00 Test Item Value Reference Range Comments SODIUM (BEAKER) (test 142 meq/L 135-148 iove=410) POTASSIUM (BEAKER) (test 4.0 meq/L 3.6-5.5 peob=011) CHLORIDE (BEAKER) (test 103 meq/L 98-106 uqen=133) CO2 (BEAKER) (test 24 meq/L 20-29 gftg=228) BLOOD UREA NITROGEN 44 mg/dL 10-26 (BEAKER) (test uotb=700) CREATININE (BEAKER) (test 1.20 mg/dL 0.50-1.20 zwmz=719) GLUCOSE RANDOM (BEAKER) 157 mg/dL 70-110 (test jkse=736) CALCIUM (BEAKER) (test 8.3 mg/dL 8.5-10.5 uxfm=546) EGFR (BEAKER) (test 44 mL/min/1.73 sq m ESTIMATED GFR IS NOT skda=7337) ACCURATE CREATININE CLEARANCE IN PREDICTING GLOMERULAR FILTRATION RATE. ESTIMATED GFR IS NOT APPLICABLE FOR DIALYSIS PATIENTS. BLOOD GAS, [id number] 06:03:00 Test Item Value Reference Range Comments PH ARTERIAL (BEAKER) (test piyg=433) 7.42 7.35-7.45 PCO2 ARTERIAL (BEAKER) (test vzjj=264) 47 mmHg 35-45 PO2 ARTERIAL (BEAKER) (test tyng=343) 115 mmHg 80-90 O2 SATURATION ARTERIAL (BEAKER) (test ueeo=826) 98.2 % 96.0-97.0 HCO3 ARTERIAL (BEAKER) (test czqo=041) 29 mmol/L 21-29 BASE EXCESS ARTERIAL (BEAKER) (test lxpx=314) 4.2 mmol/L -2.0-3.0 PATIENT TEMPERATURE (BEAKER) (test vrry=3339) 37.3 C FIO2 (BEAKER) (test kqqx=3368) 100.0 % CBC W/PLT COUNT & AUTO [id number] 05:57:00 Test Item Value Reference Range Comments WHITE BLOOD CELL COUNT (BEAKER) (test yaba=647) 23.7 K/ L 4.0-10.0 RED BLOOD CELL COUNT (BEAKER) (test bqbn=965) 2.71 M/ L 4.00-5.00 HEMOGLOBIN (BEAKER) (test bxzt=668) 7.5 GM/DL 12.0-15.0 HEMATOCRIT (BEAKER) (test vqnf=892) 23.7 % 36.0-45.0 MEAN CORPUSCULAR VOLUME (BEAKER) (test cmrp=684) 87.5 fL 82.0-99.0 MEAN CORPUSCULAR HEMOGLOBIN (BEAKER) (test 27.6 pg 27.0-33.0 tzxd=682) MEAN CORPUSCULAR HEMOGLOBIN CONC (BEAKER) (test 31.6 GM/DL 32.0-36.0 ndzp=744) RED CELL DISTRIBUTION WIDTH (BEAKER) (test 16.0 % 10.3-14.2 owat=193) PLATELET COUNT (BEAKER) (test pmbz=614) 421 K/CU MM 150-430 MEAN PLATELET VOLUME (BEAKER) (test xmwk=524) 6.7 fL 6.5-10.5 NUCLEATED RED BLOOD CELLS (BEAKER) (test 0 /100 WBC 0-0 hzgz=299) NEUTROPHILS RELATIVE PERCENT (BEAKER) (test 92 % ufjk=818) LYMPHOCYTES RELATIVE PERCENT (BEAKER) (test 4 % gcoj=520) MONOCYTES RELATIVE PERCENT (BEAKER) (test 4 % vxkh=235) EOSINOPHILS RELATIVE PERCENT (BEAKER) (test 0 % foto=840) BASOPHILS RELATIVE PERCENT (BEAKER) (test 0 % gswj=708) NEUTROPHILS ABSOLUTE COUNT (BEAKER) (test 21.80 K/ L 1.80-8.00 lsoe=782) LYMPHOCYTES ABSOLUTE COUNT (BEAKER) (test 1.00 K/ L 1.48-4.50 zzct=054) MONOCYTES ABSOLUTE COUNT (BEAKER) (test 0.90 K/ L 0.00-1.30 kkeb=475) EOSINOPHILS ABSOLUTE COUNT (BEAKER) (test 0.00 K/ L 0.00-0.50 byeb=913) BASOPHILS ABSOLUTE COUNT (BEAKER) (test 0.10 K/ L 0.00-0.20 buzu=962) (MANUAL DIFFERENTIAL)2017-06-27 05:57:00 Test Item Value Reference Range Comments NEUTROPHILS - REL (DIFF) (BEAKER) (test 89 % fbkp=1272) LYMPHOCYTES - REL (DIFF) (BEAKER) (test 5 % iovl=0889) MONOCYTES - REL (DIFF) (BEAKER) (test sngo=4812) 4 % BANDS - REL (DIFF) (BEAKER) (test wnyl=9518) 2 % 0-10 NEUTROPHILS - ABS (DIFF) (BEAKER) (test 21.09 K/ L 1.80-8.00 wfpc=3745) LYMPHOCYTES - ABS (DIFF) (BEAKER) (test 1.19 K/ L 1.48-4.50 jgmy=6407) MONOCYTES - ABS (DIFF) (BEAKER) (test nlsl=8423) 0.95 K/ L 0.00-1.30 BANDS-ABS (DIFF) (BEAKER) (test pqnk=1870) 0.5 K/ L 0.0-0.8 TOTAL COUNTED (BEAKER) (test gdhl=4661) 100 BANDS + SEGMENTED NEUTROPHILS (BEAKER) (test 21.57 fnex=8167) WBC MORPHOLOGY (BEAKER) (test yhtg=327) Normal PLT MORPHOLOGY (BEAKER) (test lqjz=336) Normal ANISOCYTOSIS (BEAKER) (test mjvf=994) 1+ few HYPOCHROMIA (BEAKER) (test orus=626) 2+ moderate B-TYPE NATRIURETIC FACTOR (BNP)2017-06-27 05:42:00 Test Item Value Reference Range Comments B-TYPE NATRIURETIC PEPTIDE (BEAKER) (test 159 pg/mL 0-100 fhlr=110) [id number] 05:34:00 Test Item Value Reference Range Comments PHOSPHORUS (BEAKER) (test fwah=277) 3.1 mg/dL 2.5-4.5 LACTIC ACID, VENOUS, WHOLE [id number] 05:31:00 Test Item Value Reference Range Comments LACTATE BLOOD VENOUS (2) (BEAKER) (test 0.9 mmol/L 0.5-2.2 sgwf=7747) Effective 03/19/2016: Units/Reference Range ChangeNew: 0.5-2.2 mmol/L Previous: 5 -18 mg/[id number] 05:29:00 Test Item Value Reference Range Comments MAGNESIUM (BEAKER) (test taxh=325) 1.9 mg/dL 1.5-3.0 POCT-GLUCOSE [id number] 05:03:00 Test Item Value Reference Range Comments POC-GLUCOSE METER (BEAKER) 196 mg/dL 70-110 TESTED AT [address] (test gccx=9070) [facility] [address] POCT-GLUCOSE [id number] 04:03:00 Test Item Value Reference Range Comments POC-GLUCOSE METER (BEAKER) 187 mg/dL 70-110 TESTED AT [address] (test lqqs=6878) [facility] [address] POCT-GLUCOSE [id number] 03:05:00 Test Item Value Reference Range Comments POC-GLUCOSE METER (BEAKER) 174 mg/dL 70-110 TESTED AT [address] (test qume=4166) [place] [id number] POCT-GLUCOSE [id number] 02:05:00 Test Item Value Reference Range Comments POC-GLUCOSE METER (BEAKER) 201 mg/dL 70-110 TESTED AT [address] (test qysq=2938) [facility] [address] POCT-GLUCOSE [id number] 01:04:00 Test Item Value Reference Range Comments POC-GLUCOSE METER (BEAKER) 196 mg/dL 70-110 TESTED AT [address] (test onkt=2562) [facility] [address] POCT-GLUCOSE [id number] 00:10:00 Test Item Value Reference Range Comments POC-GLUCOSE METER (BEAKER) 228 mg/dL 70-110 TESTED AT [address] (test jtvh=3423) [facility] [address] POCT-GLUCOSE [id number] 23:07:00 Test Item Value Reference Range Comments POC-GLUCOSE METER (BEAKER) 176 mg/dL 70-110 TESTED AT [address] (test pdqg=6718) [facility] [address] POCT-GLUCOSE [id number] 22:17:00 Test Item Value Reference Range Comments POC-GLUCOSE METER (BEAKER) 156 mg/dL 70-110 TESTED AT [address] (test kwep=2103) [facility] [address] POCT-GLUCOSE [id number] 21:05:00 Test Item Value Reference Range Comments POC-GLUCOSE METER (BEAKER) 203 mg/dL 70-110 TESTED AT [address] (test cmxe=6317) [facility] [address] POCT-GLUCOSE [id number] 21:05:00 Test Item Value Reference Range Comments POC-GLUCOSE METER (BEAKER) 207 mg/dL 70-110 TESTED AT [address] (test clup=2156) [facility] [address] POCT-GLUCOSE [id number] 18:14:00 Test Item Value Reference Range Comments POC-GLUCOSE METER (BEAKER) 232 mg/dL 70-110 TESTED AT [address] (test rxjs=1670) [facility] [address] LACTIC ACID, VENOUS, WHOLE [id number] 16:55:00 Test Item Value Reference Range Comments LACTATE BLOOD VENOUS (2) (BEAKER) (test 2.6 mmol/L 0.5-2.2 cenu=5143) Effective 03/19/2016: Units/Reference Range ChangeNew: 0.5-2.2 mmol/L Previous: 5 -18 mg/dLPROTHROMBIN [id number] 16:54:00 Test Item Value Reference Range Comments PROTIME (BEAKER) (test gqwv=075) 16.3 seconds 9.3-12.0 INR (BEAKER) (test yiik=683) 1.5 <=5.9 RECOMMENDED COUMADIN/WARFARIN INR THERAPY RANGESSTANDARD DOSE: 2.0 - 3.0 Includes: PROPHYLAXIS forvenous thrombosis, systemic embolization; TREATMENT for venous thrombosis and/or pulmonary embolus.HIGH RISK: Target INR is 2.5-3.5 for patients with mechanical heart valves.POCT-GLUCOSE [id number] 16:46:00 Test Item Value Reference Range Comments POC-GLUCOSE METER (BEAKER) 309 mg/dL 70-110 TESTED AT [address] (test ukbk=0482) [address] [facility] [address] [id number] 14:50:00 Test Item Value Reference Range Comments MAGNESIUM (BEAKER) (test qlbd=448) 2.1 mg/dL 1.5-3.0 COMPREHENSIVE METABOLIC [id number] 14:44:00 Test Item Value Reference Range Comments TOTAL PROTEIN (BEAKER) 5.5 gm/dL 6.0-8.5 (test zjzm=166) ALBUMIN (BEAKER) (test 2.5 g/dL 3.5-5.0 nztv=5442) ALKALINE PHOSPHATASE 128 U/L 30-115 (BEAKER) (test dmic=996) BILIRUBIN TOTAL (BEAKER) 0.6 mg/dL 0.1-1.2 (test vwex=294) SODIUM (BEAKER) (test 130 meq/L 135-148 bdqc=904) POTASSIUM (BEAKER) (test 3.9 meq/L 3.6-5.5 pyfz=044) CHLORIDE (BEAKER) (test 95 meq/L 98-106 wpwr=543) CO2 (BEAKER) (test 28 meq/L 20-29 isfz=906) BLOOD UREA NITROGEN 40 mg/dL 10-26 (BEAKER) (test ggxw=896) CREATININE (BEAKER) (test 1.10 mg/dL 0.50-1.20 kkwq=448) GLUCOSE RANDOM (BEAKER) 446 mg/dL 70-110 (test jczi=846) CALCIUM (BEAKER) (test 8.5 mg/dL 8.5-10.5 qxjk=815) AST (SGOT) (BEAKER) (test 50 U/L 5-40 ecsm=947) ALT (SGPT) (BEAKER) (test 45 U/L 5-50 bzrw=393) EGFR (BEAKER) (test 48 mL/min/1.73 sq m ESTIMATED GFR IS NOT phql=7445) ACCURATE CREATININE CLEARANCE IN PREDICTING GLOMERULAR FILTRATION RATE. ESTIMATED GFR IS NOT APPLICABLE FOR DIALYSIS PATIENTS. [id number] 14:24:00 Test Item Value Reference Range Comments PHOSPHORUS (BEAKER) (test oiww=984) 2.7 mg/dL 2.5-4.5 BLOOD GAS, [id number] 14:07:00 Test Item Value Reference Range Comments PH ARTERIAL (BEAKER) (test rdcw=807) 7.41 7.35-7.45 PCO2 ARTERIAL (BEAKER) (test ctne=874) 49 mmHg 35-45 PO2 ARTERIAL (BEAKER) (test iwqr=312) 70 mmHg 80-90 O2 SATURATION ARTERIAL (BEAKER) (test mzpd=947) 93.9 % 96.0-97.0 HCO3 ARTERIAL (BEAKER) (test htse=840) 30 mmol/L 21-29 BASE EXCESS ARTERIAL (BEAKER) (test wmwu=023) 4.8 mmol/L -2.0-3.0 PATIENT TEMPERATURE (BEAKER) (test fdhc=5926) 37.0 C FIO2 (BEAKER) (test gafg=3525) 50.0 % POCT-GLUCOSE [id number] 14:02:00 Test Item Value Reference Range Comments POC-GLUCOSE METER (BEAKER) 336 mg/dL 70-110 TESTED AT [address] (test sauw=1133) [address] [facility] [address] POCT-GLUCOSE [id number] 13:38:00 Test Item Value Reference Range Comments POC-GLUCOSE METER (BEAKER) 363 mg/dL 70-[address] [facility] [address] (test xjla=7992) [address] [facility] [address] CBC W/PLT COUNT & AUTO [id number] 13:18:00 Test Item Value Reference Range Comments WHITE BLOOD CELL COUNT (BEAKER) (test orpw=621) 10.5 K/ L 4.0-10.0 RED BLOOD CELL COUNT (BEAKER) (test qsjg=266) 3.22 M/ L 4.00-5.00 HEMOGLOBIN (BEAKER) (test wdpg=452) 8.9 GM/DL 12.0-15.0 HEMATOCRIT (BEAKER) (test zwfh=119) 27.7 % 36.0-45.0 MEAN CORPUSCULAR VOLUME (BEAKER) (test rekr=833) 86.2 fL 82.0-99.0 MEAN CORPUSCULAR HEMOGLOBIN (BEAKER) (test 27.5 pg 27.0-33.0 cqwm=861) MEAN CORPUSCULAR HEMOGLOBIN CONC (BEAKER) (test 31.9 GM/DL 32.0-36.0 jkvm=043) RED CELL DISTRIBUTION WIDTH (BEAKER) (test 15.6 % 10.3-14.2 xlpq=499) PLATELET COUNT (BEAKER) (test jvps=210) 311 K/CU MM 150-430 MEAN PLATELET VOLUME (BEAKER) (test pbnc=137) 7.8 fL 6.5-10.5 NUCLEATED RED BLOOD CELLS (BEAKER) (test 0 /100 WBC 0-0 pnyi=848) NEUTROPHILS RELATIVE PERCENT (BEAKER) (test 88 % gaor=427) LYMPHOCYTES RELATIVE PERCENT (BEAKER) (test 9 % rsud=432) MONOCYTES RELATIVE PERCENT (BEAKER) (test 4 % hzqa=076) EOSINOPHILS RELATIVE PERCENT (BEAKER) (test 0 % fent=128) BASOPHILS RELATIVE PERCENT (BEAKER) (test 0 % xjjm=673) NEUTROPHILS ABSOLUTE COUNT (BEAKER) (test 9.20 K/ L 1.80-8.00 ebym=427) LYMPHOCYTES ABSOLUTE COUNT (BEAKER) (test 0.90 K/ L 1.48-4.50 ihcl=848) MONOCYTES ABSOLUTE COUNT (BEAKER) (test 0.40 K/ L 0.00-1.30 jvmg=554) EOSINOPHILS ABSOLUTE COUNT (BEAKER) (test 0.00 K/ L 0.00-0.50 mcmg=576) BASOPHILS ABSOLUTE COUNT (BEAKER) (test 0.00 K/ L 0.00-0.20 gzbt=691) BLOOD GAS, [id number] 13:11:00 Test Item Value Reference Range Comments PH ARTERIAL (BEAKER) (test gonj=131) 7.48 7.35-7.45 PCO2 ARTERIAL (BEAKER) (test inwv=089) 45 mmHg 35-45 PO2 ARTERIAL (BEAKER) (test feek=466) 111 mmHg 80-90 O2 SATURATION ARTERIAL (BEAKER) (test qnqp=025) 98.3 % 96.0-97.0 HCO3 ARTERIAL (BEAKER) (test xsun=359) 33 mmol/L 21-29 BASE EXCESS ARTERIAL (BEAKER) (test ozev=284) 8.8 mmol/L -2.0-3.0 PATIENT TEMPERATURE (BEAKER) (test ktsq=1385) 36.8 C FIO2 (BEAKER) (test zfjw=8600) 60.0 % POCT-GLUCOSE [id number] 12:54:00 Test Item Value Reference Range Comments POC-GLUCOSE METER (BEAKER) 415 mg/dL 70-110 TESTED AT [address] (test vrkn=2229) [facility] [address] POCT-GLUCOSE [id number] 12:54:00 Test Item Value Reference Range Comments POC-GLUCOSE METER (BEAKER) 408 mg/dL 70-110 TESTED AT [address] (test veeq=9539) [facility] [address] POCT-GLUCOSE [id number] 12:54:00 Test Item Value Reference Range Comments POC-GLUCOSE METER (BEAKER) 420 mg/dL 70-110 TESTED AT [address] (test jess=1254) [facility] [address] BLOOD GAS, [id number] 10:34:00 Test Item Value Reference Range Comments PH ARTERIAL (BEAKER) (test hbts=930) 7.45 7.35-7.45 PCO2 ARTERIAL (BEAKER) (test qtac=685) 45 mmHg 35-45 PO2 ARTERIAL (BEAKER) (test wypx=962) 281 mmHg 80-90 O2 SATURATION ARTERIAL (BEAKER) (test kvrp=572) 99.7 % 96.0-97.0 HCO3 ARTERIAL (BEAKER) (test ukrc=108) 31 mmol/L 21-29 BASE EXCESS ARTERIAL (BEAKER) (test wuqp=869) 6.3 mmol/L -2.0-3.0 PATIENT TEMPERATURE (BEAKER) (test pwoz=5552) 37.0 C BASIC METABOLIC [id number] 08:55:00 Test Item Value Reference Range Comments SODIUM (BEAKER) (test 132 mmol/L 135-148 ytkv=438) POTASSIUM (BEAKER) (test 4.4 meq/L 3.6-5.5 ccez=285) CHLORIDE (BEAKER) (test 95 meq/L 98-106 This is a corrected pgwc=118) result. Previous result was 103 meq/L on 06/26/2017 at 0635 CDT CO2 (BEAKER) (test 32 meq/L 20-29 kkoq=924) BLOOD UREA NITROGEN 36 mg/dL 10-26 (BEAKER) (test gvnw=001) CREATININE (BEAKER) (test 1.10 mg/dL 0.50-1.20 htxd=211) GLUCOSE RANDOM (BEAKER) 553 mg/dL 70-110 (test rura=350) CALCIUM (BEAKER) (test 8.6 mg/dL 8.5-10.5 mixv=330) EGFR (BEAKER) (test 48 mL/min/1.73 sq m ESTIMATED GFR IS NOT zkli=0818) ACCURATE CREATININE CLEARANCE IN PREDICTING GLOMERULAR FILTRATION RATE. ESTIMATED GFR IS NOT APPLICABLE FOR DIALYSIS PATIENTS. POCT-GLUCOSE [id number] 07:54:00 Test Item Value Reference Range Comments POC-GLUCOSE METER (BEAKER) > mg/dL 70-110 OUTSIDE MEASURING RANGETESTED AT (test vtie=2678) [address] [address] POCT-GLUCOSE [id number] 07:25:00 Test Item Value Reference Range Comments POC-GLUCOSE METER (BEAKER) 458 mg/dL 70-110 TESTED AT [address] (test tehr=5660) [facility] [address] [id number] 05:42:00 Test Item Value Reference Range Comments PHOSPHORUS (BEAKER) (test wzcp=261) 3.0 mg/dL 2.5-4.5 [id number] 05:38:00 Test Item Value Reference Range Comments MAGNESIUM (BEAKER) (test vpkl=947) 1.8 mg/dL 1.5-3.0 POCT-GLUCOSE [id number] 00:17:00 Test Item Value Reference Range Comments POC-GLUCOSE METER (BEAKER) 487 mg/dL 70-110 TESTED AT [address] (test oijr=6679) [facility] [address] POCT-GLUCOSE [id number] 22:15:00 Test Item Value Reference Range Comments POC-GLUCOSE METER (BEAKER) > mg/dL 70-110 OUTSIDE MEASURING RANGETESTED AT (test gsvv=0704) [address] [address] POCT-GLUCOSE [id number] 17:41:00 Test Item Value Reference Range Comments POC-GLUCOSE METER (BEAKER) 307 mg/dL 70-110 TESTED AT [address] (test ldul=4053) [facility] [address] POCT-GLUCOSE [id number] 12:09:00 Test Item Value Reference Range Comments POC-GLUCOSE METER (BEAKER) 457 mg/dL 70-110 Baby tested Mother ID (test voax=3821) used/TESTED AT [address] [address] POCT-GLUCOSE [id number] 06:47:00 Test Item Value Reference Range Comments POC-GLUCOSE METER (BEAKER) 480 mg/dL 70-110 Notified TULIO HOBBS/TESTED AT [facility] (test ddof=6132) [address] [place] [address] COMPREHENSIVE METABOLIC [id number] 06:40:00 Test Item Value Reference Range Comments TOTAL PROTEIN (BEAKER) 6.3 gm/dL 6.0-8.5 (test btlw=815) ALBUMIN (BEAKER) (test 2.7 g/dL 3.5-5.0 ayau=3628) ALKALINE PHOSPHATASE 155 U/L 30-115 (BEAKER) (test xxzx=610) BILIRUBIN TOTAL (BEAKER) 0.7 mg/dL 0.1-1.2 (test igku=771) SODIUM (BEAKER) (test 134 meq/L 135-148 seqe=455) POTASSIUM (BEAKER) (test 3.8 meq/L 3.6-5.5 fnug=958) CHLORIDE (BEAKER) (test 95 meq/L 98-106 dzjg=591) CO2 (BEAKER) (test 29 meq/L 20-29 bpql=360) BLOOD UREA NITROGEN 34 mg/dL 10-26 (BEAKER) (test kaeh=585) CREATININE (BEAKER) (test 1.10 mg/dL 0.50-1.20 mdvb=386) GLUCOSE RANDOM (BEAKER) 503 mg/dL 70-110 (test lnpw=050) CALCIUM (BEAKER) (test 8.7 mg/dL 8.5-10.5 zuhx=238) AST (SGOT) (BEAKER) (test 21 U/L 5-40 poev=351) ALT (SGPT) (BEAKER) (test 41 U/L 5-50 wiim=733) EGFR (BEAKER) (test 48 mL/min/1.73 sq m ESTIMATED GFR IS NOT xieu=9213) ACCURATE CREATININE CLEARANCE IN PREDICTING GLOMERULAR FILTRATION RATE. ESTIMATED GFR IS NOT APPLICABLE FOR DIALYSIS PATIENTS. B-TYPE NATRIURETIC FACTOR (BNP)2017-06-25 06:34:00 Test Item Value Reference Range Comments B-TYPE NATRIURETIC PEPTIDE (BEAKER) (test 771 pg/mL 0-100 odvo=905) [id number] 06:25:00 Test Item Value Reference Range Comments PHOSPHORUS (BEAKER) (test pfso=093) 2.7 mg/dL 2.5-4.5 [id number] 06:20:00 Test Item Value Reference Range Comments MAGNESIUM (BEAKER) (test qejj=542) 1.8 mg/dL 1.5-3.0 CBC W/PLT COUNT & AUTO [id number] 06:07:00 Test Item Value Reference Range Comments WHITE BLOOD CELL COUNT (BEAKER) (test yyex=484) 7.9 K/ L 4.0-10.0 RED BLOOD CELL COUNT (BEAKER) (test khjx=984) 3.48 M/ L 4.00-5.00 HEMOGLOBIN (BEAKER) (test zhpp=996) 9.5 GM/DL 12.0-15.0 HEMATOCRIT (BEAKER) (test rgns=155) 29.8 % 36.0-45.0 MEAN CORPUSCULAR VOLUME (BEAKER) (test oect=512) 85.8 fL 82.0-99.0 MEAN CORPUSCULAR HEMOGLOBIN (BEAKER) (test 27.4 pg 27.0-33.0 yfdd=394) MEAN CORPUSCULAR HEMOGLOBIN CONC (BEAKER) (test 31.9 GM/DL 32.0-36.0 ryjh=582) RED CELL DISTRIBUTION WIDTH (BEAKER) (test 15.4 % 10.3-14.2 kesi=956) PLATELET COUNT (BEAKER) (test oqfj=973) 274 K/CU MM 150-430 MEAN PLATELET VOLUME (BEAKER) (test yxol=385) 7.9 fL 6.5-10.5 NUCLEATED RED BLOOD CELLS (BEAKER) (test 0 /100 WBC 0-0 eotu=072) NEUTROPHILS RELATIVE PERCENT (BEAKER) (test 93 % apme=765) LYMPHOCYTES RELATIVE PERCENT (BEAKER) (test 6 % iofk=524) MONOCYTES RELATIVE PERCENT (BEAKER) (test 1 % xvei=404) EOSINOPHILS RELATIVE PERCENT (BEAKER) (test 0 % fjpq=740) BASOPHILS RELATIVE PERCENT (BEAKER) (test 0 % lcum=769) NEUTROPHILS ABSOLUTE COUNT (BEAKER) (test 7.40 K/ L 1.80-8.00 bsoe=334) LYMPHOCYTES ABSOLUTE COUNT (BEAKER) (test 0.50 K/ L 1.48-4.50 hksj=565) MONOCYTES ABSOLUTE COUNT (BEAKER) (test 0.10 K/ L 0.00-1.30 kcvw=341) EOSINOPHILS ABSOLUTE COUNT (BEAKER) (test 0.00 K/ L 0.00-0.50 dyjy=958) BASOPHILS ABSOLUTE COUNT (BEAKER) (test 0.00 K/ L 0.00-0.20 kqvy=922) POCT-GLUCOSE [id number] 00:15:00 Test Item Value Reference Range Comments POC-GLUCOSE METER (BEAKER) 484 mg/dL 70-110 Notified TULIO HOBBS/TESTED AT [facility] (test gldt=9769) [address] [facility] [address] POCT-GLUCOSE [id number] 16:48:00 Test Item Value Reference Range Comments POC-GLUCOSE METER (BEAKER) 361 mg/dL 70-110 Notified RN or Patient (test lkay=4222) refused repeat test/TESTED AT [address] [address] POCT-GLUCOSE [id number] 16:48:00 Test Item Value Reference Range Comments POC-GLUCOSE METER (BEAKER) 321 mg/dL 70-110 Notified RN or MD Patient (test vehl=3566) refused repeat test/TESTED AT [address] [address] POCT-GLUCOSE [id number] 06:30:00 Test Item Value Reference Range Comments POC-GLUCOSE METER (BEAKER) 287 mg/dL 70-110 TESTED AT [address] (test hfeg=9957) [facility] [address] POCT-GLUCOSE [id number] 21:02:00 Test Item Value Reference Range Comments POC-GLUCOSE METER (BEAKER) 295 mg/dL 70-110 TESTED AT [address] (test inlv=3029) [facility] [address] POCT-GLUCOSE [id number] 18:37:00 Test Item Value Reference Range Comments POC-GLUCOSE METER (BEAKER) 265 mg/dL 70-110 TESTED AT [address] (test kywz=0027) [facility] [address] POCT-GLUCOSE [id number] 12:29:00 Test Item Value Reference Range Comments POC-GLUCOSE METER (BEAKER) 240 mg/dL 70-110 TESTED AT [address] (test khid=1972) [facility] [address] COMPREHENSIVE METABOLIC [id number] 06:17:00 Test Item Value Reference Range Comments TOTAL PROTEIN (BEAKER) 5.8 gm/dL 6.0-8.5 (test wooq=399) ALBUMIN (BEAKER) (test 2.5 g/dL 3.5-5.0 lhmb=6003) ALKALINE PHOSPHATASE 200 U/L 30-115 (BEAKER) (test xgtk=808) BILIRUBIN TOTAL (BEAKER) 0.6 mg/dL 0.1-1.2 (test kvba=649) SODIUM (BEAKER) (test 136 meq/L 135-148 gcjk=281) POTASSIUM (BEAKER) (test 3.8 meq/L 3.6-5.5 vcfa=955) CHLORIDE (BEAKER) (test 102 meq/L 98-106 jmlc=370) CO2 (BEAKER) (test 25 meq/L 20-29 ohkh=188) BLOOD UREA NITROGEN 34 mg/dL 10-26 (BEAKER) (test urtg=377) CREATININE (BEAKER) (test 1.10 mg/dL 0.50-1.20 fypj=457) GLUCOSE RANDOM (BEAKER) 208 mg/dL 70-110 (test xren=608) CALCIUM (BEAKER) (test 8.8 mg/dL 8.5-10.5 ybic=328) AST (SGOT) (BEAKER) (test 55 U/L 5-40 ufun=370) ALT (SGPT) (BEAKER) (test 67 U/L 5-50 zwet=476) EGFR (BEAKER) (test 48 mL/min/1.73 sq m ESTIMATED GFR IS NOT swws=2587) ACCURATE CREATININE CLEARANCE IN PREDICTING GLOMERULAR FILTRATION RATE. ESTIMATED GFR IS NOT APPLICABLE FOR DIALYSIS PATIENTS. POCT-GLUCOSE [id number] 06:06:00 Test Item Value Reference Range Comments POC-GLUCOSE METER (BEAKER) 206 mg/dL 70-110 TESTED AT [address] (test djyf=2337) [address] [facility] [address] [id number] 06:03:00 Test Item Value Reference Range Comments MAGNESIUM (BEAKER) (test arcx=937) 1.7 mg/dL 1.5-3.0 CBC W/PLT COUNT & AUTO [id number] 06:01:00 Test Item Value Reference Range Comments WHITE BLOOD CELL COUNT (BEAKER) (test tvsr=807) 13.3 K/ L 4.0-10.0 RED BLOOD CELL COUNT (BEAKER) (test vngg=634) 3.40 M/ L 4.00-5.00 HEMOGLOBIN (BEAKER) (test hjxv=750) 9.5 GM/DL 12.0-15.0 HEMATOCRIT (BEAKER) (test hoeg=787) 29.6 % 36.0-45.0 MEAN CORPUSCULAR VOLUME (BEAKER) (test auwd=715) 86.9 fL 82.0-99.0 MEAN CORPUSCULAR HEMOGLOBIN (BEAKER) (test 27.9 pg 27.0-33.0 cpls=925) MEAN CORPUSCULAR HEMOGLOBIN CONC (BEAKER) (test 32.1 GM/DL 32.0-36.0 bpiz=436) RED CELL DISTRIBUTION WIDTH (BEAKER) (test 15.7 % 10.3-14.2 dhpb=797) PLATELET COUNT (BEAKER) (test ekor=638) 272 K/CU MM 150-430 MEAN PLATELET VOLUME (BEAKER) (test qput=516) 7.7 fL 6.5-10.5 NUCLEATED RED BLOOD CELLS (BEAKER) (test 0 /100 WBC 0-0 blrr=993) NEUTROPHILS RELATIVE PERCENT (BEAKER) (test 86 % pdes=686) LYMPHOCYTES RELATIVE PERCENT (BEAKER) (test 5 % zkfk=775) MONOCYTES RELATIVE PERCENT (BEAKER) (test 7 % qqkn=810) EOSINOPHILS RELATIVE PERCENT (BEAKER) (test 1 % ucoi=024) BASOPHILS RELATIVE PERCENT (BEAKER) (test 0 % tyre=220) NEUTROPHILS ABSOLUTE COUNT (BEAKER) (test 11.50 K/ L 1.80-8.00 iipk=029) LYMPHOCYTES ABSOLUTE COUNT (BEAKER) (test 0.70 K/ L 1.48-4.50 unoz=127) MONOCYTES ABSOLUTE COUNT (BEAKER) (test 0.90 K/ L 0.00-1.30 kwzr=663) EOSINOPHILS ABSOLUTE COUNT (BEAKER) (test 0.10 K/ L 0.00-0.50 whmx=569) BASOPHILS ABSOLUTE COUNT (BEAKER) (test 0.00 K/ L 0.00-0.20 zbow=496) POCT-GLUCOSE [id number] 21:17:00 Test Item Value Reference Range Comments POC-GLUCOSE METER (BEAKER) 223 mg/dL 70-110 TESTED AT [address] (test goua=2958) [facility] [address] POCT-GLUCOSE [id number] 17:17:00 Test Item Value Reference Range Comments POC-GLUCOSE METER (BEAKER) 231 mg/dL 70-110 TESTED AT [address] (test huzb=1656) [facility] [address] B-TYPE NATRIURETIC FACTOR (BNP)2017-06-22 15:38:00 Test Item Value Reference Range Comments B-TYPE NATRIURETIC PEPTIDE (BEAKER) (test 414 pg/mL 0-100 aqvy=590) POCT-GLUCOSE [id number] 12:15:00 Test Item Value Reference Range Comments POC-GLUCOSE METER (BEAKER) 149 mg/dL 70-[address] [facility] [address] [facility] (test idci=2527) [facility] [address] POCT-GLUCOSE [id number] 06:38:00 Test Item Value Reference Range Comments POC-GLUCOSE METER (BEAKER) 152 mg/dL 70-[address] [facility] [address] [facility] (test xwlv=3798) [facility] [address] CBC W/PLT COUNT & AUTO [id number] 06:25:00 Test Item Value Reference Range Comments WHITE BLOOD CELL COUNT (BEAKER) (test jkrs=958) 18.0 K/ L 4.0-10.0 RED BLOOD CELL COUNT (BEAKER) (test sdcj=960) 3.47 M/ L 4.00-5.00 HEMOGLOBIN (BEAKER) (test uajg=393) 9.7 GM/DL 12.0-15.0 HEMATOCRIT (BEAKER) (test ejld=113) 30.1 % 36.0-45.0 MEAN CORPUSCULAR VOLUME (BEAKER) (test ibxb=310) 86.7 fL 82.0-99.0 MEAN CORPUSCULAR HEMOGLOBIN (BEAKER) (test 27.9 pg 27.0-33.0 fuas=897) MEAN CORPUSCULAR HEMOGLOBIN CONC (BEAKER) (test 32.2 GM/DL 32.0-36.0 maow=179) RED CELL DISTRIBUTION WIDTH (BEAKER) (test 15.4 % 10.3-14.2 ljbm=421) PLATELET COUNT (BEAKER) (test xxlg=454) 227 K/CU MM 150-430 MEAN PLATELET VOLUME (BEAKER) (test zqsb=255) 8.0 fL 6.5-10.5 NUCLEATED RED BLOOD CELLS (BEAKER) (test 0 /100 WBC 0-0 jttp=294) NEUTROPHILS RELATIVE PERCENT (BEAKER) (test 90 % ubks=762) LYMPHOCYTES RELATIVE PERCENT (BEAKER) (test 4 % rxht=377) MONOCYTES RELATIVE PERCENT (BEAKER) (test 6 % swid=751) EOSINOPHILS RELATIVE PERCENT (BEAKER) (test 1 % ggcr=931) BASOPHILS RELATIVE PERCENT (BEAKER) (test 0 % qttv=280) NEUTROPHILS ABSOLUTE COUNT (BEAKER) (test 16.20 K/ L 1.80-8.00 gqzp=227) LYMPHOCYTES ABSOLUTE COUNT (BEAKER) (test 0.60 K/ L 1.48-4.50 newr=585) MONOCYTES ABSOLUTE COUNT (BEAKER) (test 1.00 K/ L 0.00-1.30 andn=198) EOSINOPHILS ABSOLUTE COUNT (BEAKER) (test 0.10 K/ L 0.00-0.50 aquq=792) BASOPHILS ABSOLUTE COUNT (BEAKER) (test 0.10 K/ L 0.00-0.20 wimi=603) (MANUAL DIFFERENTIAL)2017-06-22 06:25:00 Test Item Value Reference Range Comments NEUTROPHILS - REL (DIFF) (BEAKER) (test 90 % gmxb=0198) LYMPHOCYTES - REL (DIFF) (BEAKER) (test 5 % wchz=5907) MONOCYTES - REL (DIFF) (BEAKER) (test aivb=5946) 5 % NEUTROPHILS - ABS (DIFF) (BEAKER) (test 16.20 K/ L 1.80-8.00 yjiu=2365) LYMPHOCYTES - ABS (DIFF) (BEAKER) (test 0.90 K/ L 1.48-4.50 jfph=8951) MONOCYTES - ABS (DIFF) (BEAKER) (test eniu=2620) 0.90 K/ L 0.00-1.30 TOTAL COUNTED (BEAKER) (test oeng=6498) 100 WBC MORPHOLOGY (BEAKER) (test wwae=852) Normal PLT MORPHOLOGY (BEAKER) (test quou=311) Normal ANISOCYTOSIS (BEAKER) (test qmiv=479) 1+ few COMPREHENSIVE METABOLIC [id number] 06:03:00 Test Item Value Reference Range Comments TOTAL PROTEIN (BEAKER) 6.1 gm/dL 6.0-8.5 Specimen slightly (test xmma=744) hemolyzed ALBUMIN (BEAKER) (test 2.6 g/dL 3.5-5.0 Specimen slightly kxjc=9857) hemolyzed ALKALINE PHOSPHATASE 231 U/L 30-115 (BEAKER) (test bpjs=611) BILIRUBIN TOTAL (BEAKER) 0.6 mg/dL 0.1-1.2 Specimen slightly (test tbzi=633) hemolyzed SODIUM (BEAKER) (test 134 meq/L 135-148 bsdm=054) POTASSIUM (BEAKER) (test 4.5 meq/L 3.6-5.5 Specimen slightly wazf=742) hemolyzed CHLORIDE (BEAKER) (test 101 meq/L 98-106 vsov=922) CO2 (BEAKER) (test 23 meq/L 20-29 ckwa=225) BLOOD UREA NITROGEN 42 mg/dL 10-26 (BEAKER) (test bxpk=307) CREATININE (BEAKER) (test 1.10 mg/dL 0.50-1.20 Specimen slightly tpjv=212) hemolyzed GLUCOSE RANDOM (BEAKER) 142 mg/dL 70-110 (test teec=724) CALCIUM (BEAKER) (test 8.6 mg/dL 8.5-10.5 fost=843) AST (SGOT) (BEAKER) (test 101 U/L 5-40 Specimen slightly qlea=606) hemolyzed ALT (SGPT) (BEAKER) (test 84 U/L 5-50 Specimen slightly vmyg=986) hemolyzed EGFR (BEAKER) (test 48 mL/min/1.73 sq m ESTIMATED GFR IS NOT sson=7051) ACCURATE CREATININE CLEARANCE IN PREDICTING GLOMERULAR FILTRATION RATE. ESTIMATED GFR IS NOT APPLICABLE FOR DIALYSIS PATIENTS. HEMOGLOBIN [id number] 21:32:00 Test Item Value Reference Range Comments HEMOGLOBIN A1C (BEAKER) (test rmxz=309) 9.2 % 4.3-6.1 POCT-GLUCOSE [id number] 21:14:00 Test Item Value Reference Range Comments POC-GLUCOSE METER (BEAKER) 189 mg/dL 70-110 TESTED AT [address] (test xkpz=4608) [address] [facility] [address] CBC W/PLT COUNT & AUTO [id number] 20:24:00 Test Item Value Reference Range Comments WHITE BLOOD CELL COUNT (BEAKER) (test prom=243) 20.3 K/ L 4.0-10.0 RED BLOOD CELL COUNT (BEAKER) (test xmkp=640) 3.37 M/ L 4.00-5.00 HEMOGLOBIN (BEAKER) (test bdeu=667) 9.4 GM/DL 12.0-15.0 HEMATOCRIT (BEAKER) (test dwzw=362) 28.9 % 36.0-45.0 MEAN CORPUSCULAR VOLUME (BEAKER) (test dwjq=442) 85.9 fL 82.0-99.0 MEAN CORPUSCULAR HEMOGLOBIN (BEAKER) (test 27.9 pg 27.0-33.0 vvbd=657) MEAN CORPUSCULAR HEMOGLOBIN CONC (BEAKER) (test 32.5 GM/DL 32.0-36.0 vhav=886) RED CELL DISTRIBUTION WIDTH (BEAKER) (test 15.6 % 10.3-14.2 udva=994) PLATELET COUNT (BEAKER) (test ybvo=399) 329 K/CU MM 150-430 MEAN PLATELET VOLUME (BEAKER) (test vjtj=835) 8.3 fL 6.5-10.5 NUCLEATED RED BLOOD CELLS (BEAKER) (test 0 /100 WBC 0-0 mhtx=336) NEUTROPHILS RELATIVE PERCENT (BEAKER) (test 87 % txju=606) LYMPHOCYTES RELATIVE PERCENT (BEAKER) (test 5 % yqxh=745) MONOCYTES RELATIVE PERCENT (BEAKER) (test 8 % zsfe=228) EOSINOPHILS RELATIVE PERCENT (BEAKER) (test 1 % iqke=627) BASOPHILS RELATIVE PERCENT (BEAKER) (test 0 % tkdv=362) NEUTROPHILS ABSOLUTE COUNT (BEAKER) (test 17.60 K/ L 1.80-8.00 qkkq=154) LYMPHOCYTES ABSOLUTE COUNT (BEAKER) (test 0.90 K/ L 1.48-4.50 znyj=095) MONOCYTES ABSOLUTE COUNT (BEAKER) (test 1.50 K/ L 0.00-1.30 ibmu=389) EOSINOPHILS ABSOLUTE COUNT (BEAKER) (test 0.20 K/ L 0.00-0.50 dyux=226) BASOPHILS ABSOLUTE COUNT (BEAKER) (test 0.00 K/ L 0.00-0.20 ryes=769) (MANUAL DIFFERENTIAL)2017-06-21 20:24:00 Test Item Value Reference Range Comments NEUTROPHILS - REL (DIFF) (BEAKER) (test 88 % lope=3369) LYMPHOCYTES - REL (DIFF) (BEAKER) (test 4 % euzi=5184) MONOCYTES - REL (DIFF) (BEAKER) (test hlcu=3354) 7 % EOSINOPHILS - REL (DIFF) (BEAKER) (test 1 % ydfa=9937) NEUTROPHILS - ABS (DIFF) (BEAKER) (test 17.86 K/ L 1.80-8.00 pxzk=3575) LYMPHOCYTES - ABS (DIFF) (BEAKER) (test 0.81 K/ L 1.48-4.50 yugy=4805) MONOCYTES - ABS (DIFF) (BEAKER) (test hpbm=8587) 1.42 K/ L 0.00-1.30 EOSINOPHILS - ABS (DIFF) (BEAKER) (test 0.20 K/ L 0.00-0.50 tkyr=1231) TOTAL COUNTED (BEAKER) (test agld=2485) 100 WBC MORPHOLOGY (BEAKER) (test kbnn=166) Normal PLT MORPHOLOGY (BEAKER) (test lhpk=657) Normal ANISOCYTOSIS (BEAKER) (test qequ=448) 1+ few TROPONIN [id number] 19:38:00 Test Item Value Reference Range Comments TROPONIN I (BEAKER) (test mosb=704) < ng/mL 0.00-0.15 Troponin I (TnI) levels [...] and persistent tachyarrhythmia.CREATINE KINASE (CK), TOTAL AND [id number] 19:37:00 Test Item Value Reference Range Comments CREATINE KINASE TOTAL (BEAKER) (test pzzw=984) 46 U/L 25-235 CREATINE KINASE-MB (BEAKER) (test xkyo=987) 0.9 ng/mL 0.0-4.9 CREATINE KINASE-MB INDEX (BEAKER) (test ymwz=901) 2.0 % CK-MB Reference Range:<5 Normal5-10 Borderline>10 AbnormalCOMPREHENSIVE METABOLIC [id number] 19:35:00 Test Item Value Reference Range Comments TOTAL PROTEIN (BEAKER) 6.0 gm/dL 6.0-8.5 (test ktes=744) ALBUMIN (BEAKER) (test 2.5 g/dL 3.5-5.0 twby=1172) ALKALINE PHOSPHATASE 219 U/L 30-115 (BEAKER) (test gweq=159) BILIRUBIN TOTAL (BEAKER) 0.5 mg/dL 0.1-1.2 (test molp=193) SODIUM (BEAKER) (test 132 meq/L 135-148 dolz=289) POTASSIUM (BEAKER) (test 3.8 meq/L 3.6-5.5 juaf=770) CHLORIDE (BEAKER) (test 101 meq/L 98-106 zqou=378) CO2 (BEAKER) (test 23 meq/L 20-29 okek=572) BLOOD UREA NITROGEN 47 mg/dL 10-26 (BEAKER) (test psrb=099) CREATININE (BEAKER) (test 1.20 mg/dL 0.50-1.20 pztv=553) GLUCOSE RANDOM (BEAKER) 170 mg/dL 70-110 (test arsv=819) CALCIUM (BEAKER) (test 8.4 mg/dL 8.5-10.5 xzhr=519) AST (SGOT) (BEAKER) (test 128 U/L 5-40 ssyf=538) ALT (SGPT) (BEAKER) (test 89 U/L 5-50 qfwj=076) EGFR (BEAKER) (test 44 mL/min/1.73 sq m ESTIMATED GFR IS NOT amsq=2603) ACCURATE CREATININE CLEARANCE IN PREDICTING GLOMERULAR FILTRATION RATE. ESTIMATED GFR IS NOT APPLICABLE FOR DIALYSIS PATIENTS. LIPID [id number] 19:35:00 Test Item Value Reference Range Comments TRIGLYCERIDES (BEAKER) (test ctef=332) 110 mg/dL CHOLESTEROL (BEAKER) (test txwl=756) 62 mg/dL HDL CHOLESTEROL (BEAKER) (test sgab=954) 11 mg/dL LDL CHOLESTEROL CALCULATED (BEAKER) (test 29 mg/dL nnyd=301) Triglyceride Reference Range: Low Risk <150 Borderline 150- 199 High Risk 200-499 Very High Risk >=500Cholesterol Reference Range: Low Risk <200 Borderline 200-239 High Risk > 240HDL Cholesterol Reference Range: Low Risk >=60 High Risk <40LDL Cholesterol Reference Range: Optimal <100 Near Optimal 100-129 Borderline 130-159 High 160-189 Very High >=[id number] 19:31:00 Test Item Value Reference Range Comments LIPASE (BEAKER) (test epyo=907) 71 U/L 6-51 [id number] 19:22:00 Test Item Value Reference Range Comments MAGNESIUM (BEAKER) (test nxxn=732) 1.9 mg/dL 1.5-3.0 [id number] 19:22:00 Test Item Value Reference Range Comments AMYLASE (BEAKER) (test lcrq=516) 90 U/L 30-110 POCT-GLUCOSE [id number] 17:31:00 Test Item Value Reference Range Comments POC-GLUCOSE METER (BEAKER) 162 mg/dL 70-110 TESTED AT [address] (test yypp=9439) [address] [facility] [address]
[2018-02-14 08:49] LABS: Arterial Blood Carboxyhemoglob 2.4 % (0-1.5); Blood Gas Oxyhemoglobin 96.4 % (94-97); Blood O2 Saturation 99.1 % (92-98.5)
[2018-02-14 09:12] LABS: Absolute Lymphocytes (CBC) 0.7 K/uL (0.7-4.9); Absolute Monocytes 0.7 K/uL (0.1-1.3); Basophils % 0.6 % (0-1.3); Eosinophils % 0.5 % (0-4.4); Hematocrit 33.1 % (36.0-45.0); Lymphocytes % 16.4 % (15.3-44.8); MCH 26.4 pg (27.0-35.0); MCV 87.4 fL (80-100); MPV 8.5 fL (7.6-11.3); Monocytes % 15.9 % (3.3-12.3); RBC Red Blood Cell Count 3.79 M/uL (3.86-4.86)
[2018-02-14] MEDS ORDERED: LEVALBUTEROL 1.25 MG/3 ML NEB ONE (09:16)
[2018-02-14 09:22] LABS: Protime INR 1.15
[2018-02-14 09:24] LABS: Potassium 4.6 mEq/L (3.6-5.0)
[2018-02-14 09:30] LABS: Albumin 3.8 g/dL (3.2-5.5); Bilirubin Direct 0.2 mg/dL (0-0.2); Bilirubin Total 0.6 mg/dL (0.3-1.2); Magnesium 2.5 mg/dL (1.8-2.5)
--- NOTE | 2018-02-14 09:51 | RAD REPORT ---
EXAM DESCRIPTION: CT - Head Brain Wo Cont - 02/14/2018 9:34 am CLINICAL HISTORY: Alteration of consciousness/ confusion COMPARISON: 2013 TECHNIQUE: Computed axial tomography of the head was obtained. IV contrast was not requested. All CT scans are performed using dose optimization technique as appropriate and may include automated exposure control or mA/KV adjustment according to patient size. FINDINGS: An intracranial bleed is not seen . The ventricles are normal in caliber. No extra-axial fluid collection is noted. Moderate low-density areas within periventricular, deep and subcortical white matter likely represent ischemic changes secondary to small vessel disease. Fluid within the sinuses/ mastoids is not seen. IMPRESSION: No acute intracranial abnormality is seen. If patient's symptoms persist MRI of the bra in would be recommended.
[2018-02-14 10:35] LABS: Arterial Blood Carboxyhemoglob 2.7 % (0-1.5); Blood Gas Oxyhemoglobin 89.6 % (94-97); Blood O2 Saturation 92.5 % (92-98.5)
--- NOTE | 2018-02-14 10:39 | ER ---
Nurse's Notes [facility] Name: Karishma Torres Age: 77 yrs Sex: Female : 1940 Arrival Date: 02/14/2018 Time: 08:40 Bed 4 Private MD: Diagnosis: Altered mental status, unspecified;Respiratory failure, unspecified with hypoxia;congestive heart failure Presentation: 02/14 08:42 Presenting complaint: EMS states: EMS states [facility] staff told EMS that since her ae1 hospital discharge on February 11, she has declined in condition and increased SOB, saturating 88% O2 on 2 liter nasal canula, then placed on a simple mask on 6 liter saturating O2 at 99%. Transition of care: [facility]. Onset of symptoms was February 11, 2018 at 08:00. Care prior to arrival: Medication(s) given: Albuterol Neb x 1, Atrovent Neb x 1, Oxygen applied via nasal canula and then simple mask. 08:42 Method Of Arrival: EMS: [facility] ae1 08:42 Acuity: MARTINEZ 2 ae1 Triage Assessment: 08:49 General: Appears obese, Behavior is drowsy. Respiratory: Airway is patent Respiratory ae1 effort is labored, shallow, Breath sounds with wheezes bilaterally. the patient has moderate shortness of breath. 12:39 Respiratory: Reports shortness of breath at rest labored breathing Onset: The ae1 symptoms/episode began/occurred gradually. Historical: - Allergies: 08:48 Bellpepper; ae1 08:48 Byetta; ae1 08:48 Demerol; ae1 - Home Meds: 10:50 albuterol sulfate 2.5 mg /3 mL (0.083 %) Inhl nebu 3 mL every 8 hours [Active]; ae1 Aldactone 100 mg Oral tab 1 tab once daily [Active]; alprazolam 0.25 mg Oral tab 1 tab 3 times per day [Active]; atorvastatin 20 mg Oral tab 1 tab once daily [Active]; Combivent 18-103 mcg/actuation Inhl aero 1 puffs twice a day [Active]; cyanocobalamin (vitamin B-12) 5,000 mcg Oral TbDL daily [Active]; docusate sodium 100 mg Oral cap 1 cap 2 times per day [Active]; escitalopram oxalate 10 mg Oral tab 1 tab once daily [Active]; ferrous sulfate 220 mg (44 mg iron)/5 mL Oral soln twice a day [Active]; furosemide 40 mg Oral tab 2 times per day [Active]; gabapentin 100 mg Oral cap 2 caps 3 times per day [Active]; insulin detemir subcutaneous [Active]; melatonin 3 mg Oral tab nightly [Active]; metoprolol tartrate 12.5 mg BID Oral [Active]; Miralax 17 gram Oral pwpk 1 packet once daily [Active]; Mucinex 600 mg Oral Ta12 1 tab every 12 hours [Active]; Novolog 100 unit/mL Sub-Q soln [Active]; nystatin 100,000 unit/gram Topical crea 2 times per day [Active]; Protonix 40 mg Oral TbEC 1 tab once daily [Active]; - PMHx: 08:48 Anemia; Cellulitis; chronic kidney disease.; constipation; edema; hx of falling; ae1 insomnia; muscle weakness.; 10:51 Atrial Fib; CHF; chronic kidney disease; Diabetes - IDDM; DVT; End Stage Kidney ae1 Disease; Hyperlipidemia; PE; Hypertension; - Immunization history:: Adult Immunizations up to date. - Social history:: Smoking status: unknown. Screenin:11 Abuse screen: Denies threats or abuse. Nutritional screening: No deficits noted. ae1 Tuberculosis screening: No symptoms or risk factors identified. Fall Risk Fall in past 12 months (25 points). Secondary diagnosis (15 points) impaired mobility, IV access (20 points). Ambulatory Aid- None/Bed Rest/Nurse Assist (0 pts). Gait- Impaired (20 pts.). Mental Status- Overestimates/Forgets Limitations (15 pts.). Assessment: 09:04 General: Appears uncomfortable, obese, Behavior is cooperative. Pain: Denies pain. ae1 Neuro: Level of Consciousness is lethargic, Patient opens eyes to verbal prompts and nods head yes and no. When asked if Bipap is helping, patient nods yes. . Cardiovascular: Denies chest pain, Rhythm is regular. Respiratory: Airway is patent Respiratory effort is labored, shallow, Respiratory pattern is regular, Breath sounds are diminished bilaterally. Breath sounds with wheezes bilaterally. GI: Abdomen is round obese, Bowel sounds present X 4 quads. abdomen is firm. EENT: No signs and/or symptoms were reported regarding the EENT system. Derm: Skin temperature is warm Bruising that is dark purple, on left bicep and left antecubital area. Musculoskeletal: patient appears weak, when asked if patient could hold up arm for blood pressure cuff to be applied, there was no effort against gravity. 09:25 Reassessment: Patient transported via stretcher to CT accompanied by Joanie Byrd RN ae1 and CT technicians, on monitor, with oxygen applied. Respiratory: Patient's breathing is slightly less labored. 09:56 : Urine is scant amount of yellow urine. ae1 09:59 Respiratory: Patient remains on Bipap machine, appears more relaxed, nods head yes when ae1 asked if breathing is easier. 10:26 Reassessment: Respiratory therapist at bedside obtaining 2nd ABG. Daughter at bedside ae1 as well. Neuro: Level of Consciousness is obeys commands, lethargic. Respiratory: Airway is patent Respiratory effort is Assisted by Bipap. 11:29 Reassessment: Patient appears to have less labored breathing, remains on Bipap, is ae1 resting with eyes closed. Neuro: Level of Consciousness is obeys commands, lethargic, Oriented to person. 11:53 Reassessment: Called ICU to give report to receiving nurse, spoke to Louise Chávez RN, Kyler ae1 states receiving nurse just got back on the unit from transferring a patient and will return call. Vital Signs: 08:41 BP 137 / 65; Pulse 73; Resp 30; Pulse Ox 100% on 6% Simple Mask; Weight 127.01 kg (R); ae1 08:55 Temp 97.1(A); ae1 10:00 BP 135 / 53; Pulse 74; Resp 15 A; Pulse Ox 94% on 30% BiPAP; ae1 10:35 BP 128 / 74; Pulse 71; Resp 17; Pulse Ox 100% on 30% BiPAP; ae1 11:25 BP 134 / 63; Pulse 72; Resp 17; Pulse Ox 95% on 30% BiPAP; ae1 ED Course: 08:40 Patient arrived in ED. ae1 08:41 Dhruv Garduno MD is Attending Physician. kdr 08:46 Triage completed. ae1 08:50 Bed in low position. Call light in reach. Side rails up X2. shelter monitor on. Pulse ae1 ox on. NIBP on. 09:07 Initial lab(s) drawn, by wi, sent to lab. Inserted saline lock: 22 gauge in right upper jb1 arm, using aseptic technique. Blood collected. 09:19 EKG done, by ED staff, reviewed by Dhruv Garduno MD. jb1 09:20 Note: nurse to call when pts ready. bq 09:25 Kirill Rader, RN is Primary Nurse. ae1 09:27 Arm band placed on right wrist. EKG completed in triage. Results shown to MD. ae1 09:34 CT completed. Patient tolerated procedure well. Patient moved back from CT. bq 09:56 Damico cath inserted, using sterile technique, 16 Fr., by me, balloon inflated, to ae1 gravity drainage, other Scant amount of yellow urine in Damico collection bag at this time. Patient tolerated well. 10:34 Nilesh Wiseman MD is Hospitalizing Provider. kdr 12:38 No provider procedures requiring assistance completed. Patient admitted, IV remains in ae1 place. Administered Medications: 09:03 Drug: Xopenex (3) 1.25 mg Route: Inhalation; ae1 Point of Care Testing: Blood Glucose: 09:13 Blood Glucose: 130 mg/dL; ae1 Ranges: Outcome: 10:38 Decision to Hospitalize by Provider. kdr 12:38 Admitted to ICU accompanied by nurse, accompanied by tech, via stretcher, room bed 2, ae1 with oxygen, on monitor, with chart, Report called to TULIO Najera 12:38 Condition: stable 12:38 Instructed on the need for admit, Demonstrated understanding of instructions. 12:40 Patient left the ED. ae1 Signatures: Itz Franco jb1 Dhruv Garduno MD MD kdr Sylvia Carranza bq Kirill Rader, RN RN ae1
--- NOTE | 2018-02-14 10:39 | EDPHYS ---
Physician Documentation [facility] Name: Karishma Torres Age: 77 yrs Sex: Female : 1940 Arrival Date: 02/14/2018 Time: 08:40 Bed 4 Private MD: ED Physician Dhruv Garduno HPI: 02/14 08:48 This 77 yrs old Female presents to ER via EMS with complaints of Respiratory kdr Distress. 08:48 EMS reports that the patient was found to be poorly responsive and in apparent kdr respiratory distress. It is unknown how long she has been in this condition. She was reportedly just discharged from this facility on the 11 of February. Onset: The symptoms/episode began/occurred this morning. Severity of symptoms: At their worst the symptoms were moderate severe just prior to arrival, in the emergency department the symptoms are unchanged. It is unknown whether or not the patient has had similar symptoms in the past, Likely - well known to RT. The patient has been recently been admitted at [facility], was discharged earlier this week. Historical: - Allergies: 08:48 Bellpepper; ae1 08:48 Mercedes; ae1 08:48 Demerol; ae1 - Home Meds: 10:50 albuterol sulfate 2.5 mg /3 mL (0.083 %) Inhl nebu 3 mL every 8 hours [Active]; ae1 Aldactone 100 mg Oral tab 1 tab once daily [Active]; alprazolam 0.25 mg Oral tab 1 tab 3 times per day [Active]; atorvastatin 20 mg Oral tab 1 tab once daily [Active]; Combivent 18-103 mcg/actuation Inhl aero 1 puffs twice a day [Active]; cyanocobalamin (vitamin B-12) 5,000 mcg Oral TbDL daily [Active]; docusate sodium 100 mg Oral cap 1 cap 2 times per day [Active]; escitalopram oxalate 10 mg Oral tab 1 tab once daily [Active]; ferrous sulfate 220 mg (44 mg iron)/5 mL Oral soln twice a day [Active]; furosemide 40 mg Oral tab 2 times per day [Active]; gabapentin 100 mg Oral cap 2 caps 3 times per day [Active]; insulin detemir subcutaneous [Active]; melatonin 3 mg Oral tab nightly [Active]; metoprolol tartrate 12.5 mg BID Oral [Active]; Miralax 17 gram Oral pwpk 1 packet once daily [Active]; Mucinex 600 mg Oral Ta12 1 tab every 12 hours [Active]; Novolog 100 unit/mL Sub-Q soln [Active]; nystatin 100,000 unit/gram Topical crea 2 times per day [Active]; Protonix 40 mg Oral TbEC 1 tab once daily [Active]; - PMHx: 08:48 Anemia; Cellulitis; chronic kidney disease.; constipation; edema; hx of falling; ae1 insomnia; muscle weakness.; 10:51 Atrial Fib; CHF; chronic kidney disease; Diabetes - IDDM; DVT; End Stage Kidney ae1 Disease; Hyperlipidemia; PE; Hypertension; - Immunization history:: Adult Immunizations up to date. - Social history:: Smoking status: unknown. ROS: 10:24 Constitutional: Unable to obtain as the patient is poorly responsive Eyes: Negative for kdr injury, pain, redness, and discharge. 10:24 Unable to obtain ROS due to altered mental status, obtunded state. Exam: 10:24 Constitutional: This is a well developed, well nourished patient who is awake, alert, kdr and in no acute distress. Head/Face: Normocephalic, atraumatic. Eyes: Pupils equal round and reactive to light, extra-ocular motions intact. Lids and lashes normal. Conjunctiva and sclera are non-icteric and not injected. Cornea within normal limits. Periorbital areas with no swelling, redness, or edema. Neck: Trachea midline, no thyromegaly or masses palpated, and no cervical lymphadenopathy. Supple, full range of motion without nuchal rigidity, or vertebral point tenderness. No Meningismus. Chest/axilla: Normal chest wall appearance and motion. Nontender with no deformity. No lesions are appreciated. Cardiovascular: Regular rate and rhythm with a normal S1 and S2. No gallops, murmurs, or rubs. Normal PMI, no JVD. No pulse deficits. Abdomen/GI: Soft, non-tender, with normal bowel sounds. No distension or tympany. No guarding or rebound. No evidence of tenderness throughout. Back: No spinal tenderness. No costovertebral tenderness. Full range of motion. Skin: Warm, dry with normal turgor. Normal color with no rashes, no lesions, and no evidence of cellulitis. MS/ Extremity: Pulses equal, no cyanosis. Neurovascular intact. Full, normal range of motion. 10:24 Respiratory: Poor air movement, wheezing. 10:24 Neuro: Orientation: unable to test, Mentation: somnolent, responsive to pain, unable to test, Memory: unable to test. Vital Signs: 08:41 BP 137 / 65; Pulse 73; Resp 30; Pulse Ox 100% on 6% Simple Mask; Weight 127.01 kg (R); ae1 08:55 Temp 97.1(A); ae1 10:00 BP 135 / 53; Pulse 74; Resp 15 A; Pulse Ox 94% on 30% BiPAP; ae1 10:35 BP 128 / 74; Pulse 71; Resp 17; Pulse Ox 100% on 30% BiPAP; ae1 11:25 BP 134 / 63; Pulse 72; Resp 17; Pulse Ox 95% on 30% BiPAP; ae1 MDM: 10:24 Data reviewed: vital signs, nurses notes, lab test result(s). Counseling: I had a kdr detailed discussion with the patient and/or guardian regarding: the historical points, exam findings, and any diagnostic results supporting the discharge/admit diagnosis, lab results, radiology results, the need for further work-up and treatment in the hospital. 10:38 Patient medically screened. 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 kdr 04 08:43 Order name: Basic Metabolic Panel; Complete Time: 10:04 kdr 02/14 08:43 Order name: BNP; Complete Time: 10:04 kdr 02/14 08:43 Order name: CBC with Diff; Complete Time: 15:02 kdr 02/14 08:43 Order name: LFT's; Complete Time: 10:04 kdr 02/14 08:43 Order name: Magnesium; Complete Time: 10:04 kdr 02/14 08:43 Order name: PT-INR; Complete Time: 10:04 kdr 02/14 08:43 Order name: Ptt, Activated; Complete Time: 10:04 kdr 02/14 08:43 Order name: Troponin (emerg Dept Use Only); Complete Time: 10:04 kdr 02/14 08:43 Order name: ABG; Complete Time: 10:04 kdr 02/14 08:58 Order name: Blood Culture Adult (2) ae1 04/01 09:01 Order name: Glucose, Ancillary Testing; Complete Time: 09:04 EDMS 02/14 09:03 Order name: Urine Culture kdr 02/14 10:25 Order name: ABG ae1 02/14 10:25 Order name: Arterial Blood Gas ae1 02/14 08:43 Order name: XRAY Chest (1 view) kdr 02/14 08:43 Order name: EKG; Complete Time: 08:43 kdr 02/14 08:43 Order name: Cardiac monitoring; Complete Time: 08:58 kdr 02/14 08:43 Order name: EKG - Nurse/Tech; Complete Time: 09:20 kdr 02/14 08:43 Order name: IV Saline Lock; Complete Time: 08:58 kdr 02/14 08:43 Order name: Labs collected and sent; Complete Time: 09:03 kdr 02/14 08:43 Order name: O2 Per Protocol; Complete Time: 08:58 kdr 02/14 08:43 Order name: O2 Sat Monitoring; Complete Time: 08:58 kdr 02/14 09:02 Order name: CT Head Brain wo Cont kdr 02/14 09:51 Order name: CT; Complete Time: 10:04 EDMS 02/14 10:46 Order name: ABG Arterial Blood Gas; Complete Time: 15:02 EDMS 02/14 10:58 Order name: Urine Dipstick--Ancillary (enter results) ms 02/14 11:00 Order name: Urine Dipstick-Ancillary; Complete Time: 15:02 EDMS 02/14 11:24 Order name: RAD; Complete Time: 15:02 EDMS 02/14 12:31 Order name: CBC Smear Scan; Complete Time: 15:02 EDMS 02/14 08:43 Order name: Urine Dipstick-Ancillary (obtain specimen); Complete Time: 10:46 kdr Administered Medications: 09:03 Drug: Xopenex (3) 1.25 mg Route: Inhalation; ae1 Point of Care Testing: Blood Glucose: 09:13 Blood Glucose: 130 mg/dL; ae1 Ranges: Critical Glucose Levels:Adult <50 mg/dl or >400 mg/dl <40 mg/dl or >180 mg/dl Disposition: 02/14/18 10:38 Hospitalization ordered by Nilesh Wiseman for Inpatient Admission. Preliminary diagnosis are Altered mental status, unspecified, Respiratory failure, unspecified with hypoxia, congestive heart failure. - Bed requested for Intensive Care Unit. - Status is Inpatient Admission. ae1 - Condition is Serious. - Problem is an acute exacerbation. - Symptoms have improved. UTI on Admission? No Signatures: Dispatcher [employer] EDMS Dhruv Garduno MD MD kdr Leticia Michael RN RN iw Kirill Rader RN RN ae1
[2018-02-14] MEDS ORDERED: ONDANSETRON 4 MG/2 ML VIAL IV PRN (10:53)
[2018-02-14 11:00] LABS: Urine Blood TRACE (NEG); Urine Glucose NEGATIVE (NEG); Urine Protein NEGATIVE (NEG)
[2018-02-14] MEDS ORDERED: D50W 25 GM/50 ML SYRINGE IV PRN (11:00)
[2018-02-14] MEDS ORDERED: SODIUM CHLORIDE 0.9% 10ML INJ IV PRN (11:00)
[2018-02-14] MEDS ORDERED: GLUCAGON 1 MG/VIAL IM PRN (11:00)
--- NOTE | 2018-02-14 11:24 | RAD REPORT ---
EXAM DESCRIPTION: Franko Single View02/14/2018 9:43 am CLINICAL HISTORY: Shortness of breath COMPARISON: February 09, 2018 FINDINGS: Small to moderate right and small left pleural effusions are without significant change. There has been worsening in right lung opacities. Mild left lung opacities are unchanged. The heart r emains enlarged IMPRESSION: These findings may represent CHF. Progression in a right lung opacity may represent a jurado perimposed pneumonia
[2018-02-14] MEDS: INSULIN -REGULAR HUMAN 50 UNIT/0.5 ML ML SQ SCH ×3 (11:30→21:00)
[2018-02-14 12:31] LABS: Blood Morphology Comment NOT SEEN (NOT SEEN); Platelet Estimate ADEQ; Urine White Blood Cell Casts OK
[2018-02-14 13:26] VITALS: BMI 51.9
[2018-02-14] MEDS: ENOXAPARIN 30 MG/0.3 ML SQ SCH (13:51)
[2018-02-14] MEDS: ALBUTEROL 2.5 MG/3 ML NEB SOL NEB SCH ×2 (13:51→20:00)
[2018-02-14] MEDS: IPRATROPIUM BROM 0.5MG/2.5ML NEB SCH ×2 (13:51→20:00)
[2018-02-14] MEDS ORDERED: CEFTRIAXONE/SWI 1gm 1 GM/10 ML SYR IV SCH (14:00)
[2018-02-14] MEDS ORDERED: CEFTRIAXONE 1 GM/NS 50 ML 1 GM/50 ML BAG IV SCH (14:00)
[2018-02-14] MEDS ORDERED: FUROSEMIDE 40 MG/4 ML VIAL IV SCH (14:00)
[2018-02-14] MEDS ORDERED: AZITHROMYCIN IV 500 MG in NA CHLORIDE 0.9% 250 ML IVPB SCH (15:00)
[2018-02-14] MEDS ORDERED: SIMETHICONE 80 MG TAB PO PRN (15:02)
[2018-02-14] MEDS ORDERED: guaiFENesin 100 MG/5 ML UCUP PO PRN (15:02)
[2018-02-14] MEDS ORDERED: MUCINEX DM 12HR.SR TAB PO PRN (16:00)
[2018-02-14] MEDS: METHYLPREDNISOLONE 40 MG INJ IV SCH (17:03)
--- NOTE | 2018-02-14 18:50 | CON ---
Date of Consultation: 02/14/[address] Wiseman's service on 02/14/2018. I saw the patient on 02/14/2018. Reason For Consultation: Congestive heart failure. History Of Present Illness: The patient is a 77-year-old white woman. [facility] because of CHF and COPD exacerbation, got readmitted for the same. Apparently, she has morbid obesity supposed to [facility] a CPAP at the [facility] where she [facility], but she does not do that often and comes back with worsening dyspnea. She came in with altered mental status, hypertension, w as found to have a pCO2 of 100 on admission. Her last blood gas showed a pO2 of 73, pCO2 of 85 with a pH of 7.23. She was placed on BiPAP. No chest pain reported. The patient rather somnolent. No f ever or chills. Chest x-ray consistent with CHF and pneumonia. An echocardiogram last week showed m ild pulmonary hypertension with right ventricular systolic pressure of 45 mmHg and normal ejection fr action. The patient has a history of anemia, congestive heart failure that is diastolic, chronic emelina al disease, atrial fibrillation, severe COPD, dyslipidemia, hypertension, diabetes, history of pulmon sarah embolus, has IVC filter in place. Allergies: DEMEROL, ROSENTHAL PEPPER AND BYETTA. Review of Systems: Negative. Social History: Negative. Family History: Noncontributory. Medications: At home include Xanax, Lasix, iron, Neurontin, insulin, metoprolol, Protonix, and Aldac tone. Physical Examination: General: Appeared to be in no acute distress. Sleeping comfortably but would not wake up to respond for many questions. Vital Signs: Her vital signs were stable. She was in a sinus rhythm. She was afebrile. O2 saturat ion was 100% on BiPAP. Chest: Reveals expiratory wheezing and crackles at the bases. Cardiac: Revealed a regular rhythm and rate without any murmurs, gallops, or rubs. Abdomen: Obese, but benign. Extremities: Revealed 1+ edema. Diagnostic Data: Creatinine is 1.91. Chest x-ray shows CHF and right-sided pneumonia. Hemoglobin i s 10. BNP is 706. Troponin is 0.08. Impression And Plan: 1.Chronic obstructive pulmonary disease exacerbation with Pickwickian syndrome and hypoventilation, hypercapnia secondary to severe morbid obesity with mild pulmonary hypertension. 2.Acute exacerbation of diastolic congestive heart failure that is chronic. 3.Pneumonia. 4.Renal insufficiency. 5.Anemia. 6.Elevated BNP and troponin secondary to congestive heart failure and hypercapnia and hypoxia. 7.Diabetes. 8.History of atrial fibrillation that has resolved. 9.Dyslipidemia. 10.History of pulmonary embolus in the past. 11.History of hypertension. 12.History of IVC filter placement. The patient is on the appropriate therapy right now with inhalers, steroids, antibiotics, and IV Lasi x. Considering her pulmonary status and her pulmonary hypertension, it may be man[place] to change her fro m metoprolol to a calcium channel toribio such as Cardizem, verapamil or Norvasc. No further cardiac workup. We will follow her along. CARMEN Voice ID: [id number] Report ID: [id number]
[2018-02-14] MEDS: THIAMINE HCL 100 MG TABLET PO SCH (20:55)
[2018-02-14] MEDS: GABAPENTIN 100 MG CAP PO SCH (20:55)
[2018-02-14] MEDS: MELATONIN 3 MG TABLET PO SCH (20:55)
[2018-02-14] MEDS: DOCUSATE NA 100 MG CAP PO SCH (20:56)
[2018-02-14] MEDS: METOPROLOL TAR 50 MG TAB PO SCH (20:56)
[2018-02-14] MEDS ORDERED: FAMOTIDINE 20 MG/2 ML VIAL IV SCH (21:00)
[2018-02-14] MEDS: PSYLLIUM 1 PKT PO SCH (21:00)
[2018-02-14] MEDS: PROMOD 30 ML DOSE PO SCH (21:07)
--- NOTE | 2018-02-15 00:01 | HP ---
Date of Admission: 02/14/2018 Code Status: Full. Primary Care Physician: Mahesh Mary MD Chief Complaint: Shortness of breath, confusion. History Of Present Illness: The patient is a 77-year-old female with past medical history of COPD, on oxygen, who is resident of the half-way. She also has diabetes, morbid obesity, congestive heart failure, anemia, history of DVT, dyslipidemia, history of PE, GERD, depression, who comes in from the half-way due to shortness of breath and confusion. The patient states that since this morning, she had been confused and felt short of breath. Denies any fevers, chills. Some dry cough without any sputum production. No ill contacts. The patient's symptoms are constant, moderate, progressively worsening. The patient was brought into the ER via EMS from the half-way. Upon arrival, her vital signs were stable. She was started on BiPAP. Her ABG on the field showed pH of 7.61, pCO2 was 100. Repeat ABG at the hospital showed improvement with pH of 7.23 and pCO2 of 85. The patient did not need to be intubated. Her white count was normal. The patient was then referred for admission. When seen in the ER, the patient was awake, alert, oriented x2, mildly confused. Past Medical History: 1. COPD with chronic respiratory failure, oxygen dependent. 2. Anemia. 3. DVT. 4. Dysphagia. 5. Dyslipidemia. 6. Hypertension. 7. Insomnia. 8. PE. 9. GERD. 10. COPD. 11. Depression. Past Surgical History: Hysterectomy, , IVC filter, ORIF of left foot, tubal ligation, left arm fracture repair, right shoulder fracture x2, appendectomy, cholecystectomy. Medications: Reviewed. Allergies: EXENATIDE CAUSES NAUSEA AND VOMITING. MEPERIDINE. Family History: Mother has heart disease. Father has colon cancer. Brother has diabetes. Sister has diabetes. Social History: The patient is a former smoker. Denies any alcohol use or illicit drug use. The patient currently stays at the half-way and requires wheelchair for assistance. Review of Systems: An 11-point system reviewed, negative except as per HPI. Physical Examination: Vital Signs: Temperature 97.1, heart rate 73, blood pressure 137/65, respirations 30, O2 saturation 100% on BiPAP. General: Awake, alert, oriented x2, in some mild distress. Elderly female in acute respiratory distress. Ill-appearing, morbidly obese, BMI 51.9. HEENT: Normocephalic, atraumatic. PERRLA. EOMI. Moist mucous membranes. Poor dentition. Oropharynx is clear. Conjunctiva anicteric. Neck: Supple. No JVD. Trachea midline. CV: S1, S2. Regular rate and rhythm. No murmurs. Peripheral pulses are present bilaterally. Respiratory: Diminished breath sounds, some mild expiratory wheezes. No stridor. No use of accessory muscles. Gastrointestinal: Abdomen is obese, soft, nontender, nondistended. Positive bowel sounds. No guarding or rigidity. Extremities: No clubbing, cyanosis. The patient does have 1+ lower extremity edema. Skin: The patient has some excoriation underneath the breast with fungal infection. Otherwise, no other rashes. Neurologic: Cranial nerves 2 through 12 intact grossly. No focal neurological deficit. Speech is normal. Strength is symmetric in bilateral upper and lower extremities. Psych: Mood is okay. Affect is full. Insight and judgment and fair. Laboratory Data: Sodium 137, potassium 4.6, chloride 96, CO2 of 35. BUN 57, creatinine 1.91, glucose 135, calcium 9.1, magnesium 2.5. Troponin 0.08. BNP 706. ABG #1 shows pH 7.17, pCO2 of 100, pO2 of 149, pCO2 of 35. Repeat ABG shows pH 7.23, pCO2 of 85.2, pO2 of 73, bicarb 31. INR 1.15. WBC 4.6, H and H 10 and 33.1, platelets 140, neutrophils 66%. UA is negative. Diagnostic Data: CT scan of the head shows intracranial bleed not seen. No acute intracranial abnormality. Chest x-ray, personally reviewed, shows findings may represent CHF. Progression in right lung opacity may represent a superimposed pneumonia. Assessment And Plan: A 77-year-old female with; 1. Hnonn-ur-dqabapn respiratory failure. The patient currently on Ventimask. We will continue supplemental oxygenation to titrate oxygen levels between 80- 91%. Pulmonology consultation. Likely secondary to acute chronic obstructive pulmonary disease exacerbation. 2. Possible pneumonia. We will start on empiric antibiotics. Obtain blood cultures. 3. Congestive heart failure. Echocardiogram from earlier in January showed ejection fraction of 65%, diastolic dysfunction. BNP slightly elevated above her baseline. May have some acuteness to this heart failure. We will continue on congestive heart failure guidelines and Lasix for diuresis. 4. Mild pulmonary hypertension. 5. Morbid obesity, body mass index 52.1. 6. Anemia of chronic disease. 7. We will continue to monitor H and H. 8. History of deep venous thrombosis and pulmonary embolism. 9. Dysphagia. 10. Dyslipidemia. 11. Essential hypertension. 12. Insomnia. 13. Gastroesophageal reflux disease. PPI. 14. Major depressive disorder. Plan: Admit the patient to ICU, place as inpatient. We will monitor respiratory status closely. No Medical power compliance attorney or living will /MARY Voice ID: [id number] [email or web address]
[2018-02-15] MEDS: METHYLPREDNISOLONE 40 MG INJ IV SCH ×3 (00:16→18:24)
[2018-02-15] MEDS: ALBUTEROL 2.5 MG/3 ML NEB SOL NEB SCH ×4 (01:14→20:20)
[2018-02-15] MEDS: IPRATROPIUM BROM 0.5MG/2.5ML NEB SCH ×4 (01:14→20:20)
[2018-02-15 04:58] LABS: Absolute Lymphocytes (CBC) 0.3 K/uL (0.7-4.9); Absolute Monocytes 0.1 K/uL (0.1-1.3); Absolute Neutrophil 2.1 K/uL (1.8-8.0); Basophils % 0.4 % (0-1.3); Hematocrit 30.8 % (36.0-45.0); Lymphocytes % 10.4 % (15.3-44.8); MCH 26.4 pg (27.0-35.0); MCV 86.1 fL (80-100); MPV 8.9 fL (7.6-11.3); Monocytes % 3.7 % (3.3-12.3); RBC Red Blood Cell Count 3.58 M/uL (3.86-4.86)
[2018-02-15 05:18] LABS: Potassium 4.6 mEq/L (3.6-5.0)
[2018-02-15] MEDS ORDERED: levETIRAcetam 500 MG in NA CHLORIDE 0.9% 100 ML IV SCH (06:00)
[2018-02-15 06:07] LABS: Anisocytosis 1+; Blood Morphology Comment NOTED (NOT SEEN); Macrocytosis SLIGHT; Platelet Estimate DECR; Platelets, Giant OCC; Polychromasia SLIGHT; Urine White Blood Cell Casts OK
[2018-02-15 06:08] LABS: Ovalocytes SLIGHT
[2018-02-15 06:50] LABS: Arterial Blood Carboxyhemoglob 2.9 % (0-1.5); Blood Gas Oxyhemoglobin 88.4 % (94-97); Blood O2 Saturation 92.7 % (92-98.5)
--- NOTE | 2018-02-15 07:10 | EKG ---
Test Date: 2018-02-14 Test Time: 09:10:22 Loans Consultant: CHRISTINE MEASUREMENT RESULTS: Intervals: Rate: 75 NH: QRSD: 94 QT: 408 QTc: 455 [place]: P: NH: QRS: 52 T: 22 INTERPRETIVE STATEMENTS: Atrial fibrillation Low voltage QRS Cannot rule out Anterior infarct, age undetermined Abnormal ECG Compared to ECG 02/09/2018 19:23:54 Low QRS voltage now present Myocardial infarct finding still present Electronically Signed On 02-15-18 07:09:51 CDT by Cristobal Schaefer
[2018-02-15] MEDS: INSULIN -REGULAR HUMAN 50 UNIT/0.5 ML ML SQ SCH ×4 (07:30→23:16)
--- NOTE | 2018-02-15 08:39 | P.PN ---
Subjective Date of Service: 02/15/18 Chief Complaint: Respiratory distress Patient is 77 years of age was recently discharged readmitted back again with respiratory distress currently in ICU doing better alert responsive cooperative patient has an abnormal chest x-ray at this time normal left ventricular function presumed diastolic dysfunction patient was hypoxic hypercapnic on compliant with BiPAP Review of Systems General: Weakness Respiratory: Shortness of Breath Physical Examination - Vital Signs Temperature: 97.5 F Blood Pressure: 118/65 Pulse: 71 Respirations: 21 Pulse Ox (%): 93 - Physical Exam General: Alert, Oriented x3 Neck: Supple Respiratory: Clear to auscultation bilaterally, Diminished Cardiovascular: Normal S1 S2, Edema - Studies Laboratory Data (last 24 hrs) 02/14/18 08:43: PT 13.6 H, INR 1.15, APTT 28.4 Assessment & Plan - Problems (Diagnosis) (1) Respiratory failure with hypoxia and hypercapnia Current Visit: Yes Status: Acute Plan: Patient is 77 years of age was readmitted again with acute on chronic respiratory failure hypercapnia she has had normal left ventricular function presumed diastolic dysfunction abnormal chest x-ray possible infiltrate on the right side for white count he is alert responsive cooperative plan to titrate sat to 90% use BiPAP patient has a history of sleep apnea has a CPAP at home continue with bronchodilators I suggest a long-acting bronchodilator at home Qualifiers: Chronicity: acute on chronic Qualified Code(s): J96.21 - Acute and chronic respiratory failure with hypoxia; J96.22 - Acute and chronic respiratory failure with hypercapnia; J96.22 - Acute and chronic respiratory failure with hypercapnia; J96.22 - Acute and chronic respiratory failure with hypercapnia
[2018-02-15] MEDS: ENOXAPARIN 30 MG/0.3 ML SQ SCH (08:45)
[2018-02-15] MEDS: METOPROLOL TAR 50 MG TAB PO SCH ×2 (08:46→21:13)
[2018-02-15] MEDS: PANTOPRAZOLE 40MG TABLET PO SCH (08:46)
[2018-02-15] MEDS: ESCITALOPRAM 20 MG TAB PO SCH (08:47)
[2018-02-15] MEDS: THIAMINE HCL 100 MG TABLET PO SCH ×3 (08:47→21:10)
[2018-02-15] MEDS: GABAPENTIN 100 MG CAP PO SCH ×3 (08:48→21:10)
[2018-02-15] MEDS: DOCUSATE NA 100 MG CAP PO SCH ×2 (08:57→21:10)
[2018-02-15] MEDS ORDERED: FUROSEMIDE 40 MG TABLET PO SCH (09:00)
[2018-02-15] MEDS ORDERED: ENOXAPARIN 40 MG/0.4 ML SQ SCH (09:00)
[2018-02-15] MEDS: PSYLLIUM 1 PKT PO SCH ×2 (09:00→21:09)
[2018-02-15] MEDS ORDERED: POLYETHYL GLY 3350 17 GM/DOSE PO PRN (09:00)
[2018-02-15] MEDS ORDERED: PANTOPRAZOLE 40 MG INJ IVP SCH (09:00)
[2018-02-15] MEDS: SPIRONOLACTONE 100 MG TAB PO SCH (09:05)
[2018-02-15] MEDS: levoFLOXacin 500 MG TAB PO SCH (09:05)
[2018-02-15] MEDS: PROMOD 30 ML DOSE PO SCH ×2 (09:17→21:00)
--- NOTE | 2018-02-15 12:21 | PN ---
Date of Progress Note: 02/15/2018 Subjective: The patient is seen and examined, chart reviewed, and case discussed with RN and Dr. Suhas rodriguez. The patient doing better, now on nasal cannula. The patient states that, she gets anxious an d is on Xanax at the senior living. Review of Systems: Negative except as above. Medications: Reviewed. Physical Examination: Vital Signs: Temperature 97.5, heart rate 74, blood pressure blood pressure 121/83, respirations 18, and oxygen saturation 96% on 3 L via nasal cannula. General: Awake, alert, oriented x3, in some acute distress. The patient is slightly anxious, ill-ap pearing elderly female. BMI 51.9. Obese. CV: S1, S2, irregularly irregular. No murmurs. Peripheral pulses present. Respiratory: Diminished breath sounds. Some crackles. No wheezing or stridor. Gastrointestinal: Abdomen is soft, nontender, nondistended. Positive bowel sounds. Extremities: No clubbing, cyanosis. Trace pedal edema. Neurologic: Nonfocal. Laboratory Data: Sodium 136, potassium 4.6, chloride 95, CO2 33, BUN 55, creatinine 1.61, glucose 18 5, calcium 9.1, and magnesium 2.4. ABG; pH 7.33, pCO2 63.5, pO2 58, and bicarb 32.5. WBC 2.5, H and H 9.4, 30.8, platelets 118, and neutrophils 85.5%. Blood cultures negative to date. Assessment: A 77-year-old female with; 1.Acute on chronic respiratory failure. The patient now weaned off to nasal cannula. We will dyana nina to monitor pulse ox. Appreciate Dr. Das's input secondary to acute chronic obstructive pulm onary disease exacerbation and congestive heart failure. 2.Pneumonia. The patient is on antibiotics. Right-sided pneumonia. Blood cultures are negative to date. 3.Diastolic heart failure, acute exacerbation. Acute on chronic. Ejection fraction 65%. Appreciat e Dr. Renee's input. Continue Lasix for diuresis. 4.Mild pulmonary hypertension. 5.Morbid obesity. Body mass index of 52.1. 6.Anemia of chronic disease. Monitor H and H. 7.History of deep venous thrombosis and pulmonary embolism. 8.Atrial fibrillation. 9.Dysphagia. 10.Dyslipidemia, statin. 11.Essential hypertension. Resume home medications. 12.Insomnia. 13.Major depressive disorder. 14.Gastroesophageal reflux disease. Continue PPI. 15.Generalized anxiety disorder. The patient takes Xanax. Plan: Step down from ICU. Continue to monitor I's and O's. Fluid restriction. /MARY Voice ID: [id number] Report ID: [id number]
[2018-02-15 17:01] LABS: Arterial Blood Carboxyhemoglob 2.7 % (0-1.5); Blood Gas Oxyhemoglobin 90.8 % (94-97)
[2018-02-15] MEDS ORDERED: ALPRAZOLAM 0.25 MG TABLET PO PRN (17:12)
[2018-02-15] MEDS: MELATONIN 3 MG TABLET PO SCH (21:09)
[2018-02-15] MEDS: FUROSEMIDE 40 MG/4 ML VIAL IV SCH (21:13)
[2018-02-16] MEDS: METHYLPREDNISOLONE 40 MG INJ IV SCH ×3 (01:17→16:31)
[2018-02-16] MEDS: IPRATROPIUM BROM 0.5MG/2.5ML NEB SCH ×4 (01:25→19:45)
[2018-02-16] MEDS: ALBUTEROL 2.5 MG/3 ML NEB SOL NEB SCH ×4 (01:25→19:45)
[2018-02-16 04:20] LABS: Absolute Lymphocytes (CBC) 0.3 K/uL (0.7-4.9); Absolute Monocytes 0.2 K/uL (0.1-1.3); Basophils % 0.4 % (0-1.3); Hematocrit 31.2 % (36.0-45.0); Lymphocytes % 5.6 % (15.3-44.8); MCH 27.2 pg (27.0-35.0); MCV 86.5 fL (80-100); MPV 8.7 fL (7.6-11.3)
[2018-02-16 04:54] LABS: Potassium 4.8 mEq/L (3.6-5.0)
[2018-02-16] MEDS: PROMOD 30 ML DOSE PO SCH ×2 (09:00→22:01)
[2018-02-16] MEDS: PSYLLIUM 1 PKT PO SCH ×2 (09:00→21:57)
[2018-02-16] MEDS: INSULIN -REGULAR HUMAN 50 UNIT/0.5 ML ML SQ SCH ×4 (09:15→21:56)
[2018-02-16] MEDS: SPIRONOLACTONE 100 MG TAB PO SCH (09:15)
[2018-02-16] MEDS: FUROSEMIDE 40 MG/4 ML VIAL IV SCH (09:16)
[2018-02-16] MEDS: levoFLOXacin 500 MG TAB PO SCH (09:16)
[2018-02-16] MEDS: DOCUSATE NA 100 MG CAP PO SCH ×2 (09:16→21:58)
[2018-02-16] MEDS: ESCITALOPRAM 20 MG TAB PO SCH (09:16)
[2018-02-16] MEDS: ENOXAPARIN 30 MG/0.3 ML SQ SCH (09:17)
[2018-02-16] MEDS: GABAPENTIN 100 MG CAP PO SCH ×3 (09:17→21:57)
[2018-02-16] MEDS: METOPROLOL TAR 50 MG TAB PO SCH ×2 (09:17→21:57)
[2018-02-16] MEDS: THIAMINE HCL 100 MG TABLET PO SCH ×3 (09:18→21:59)
[2018-02-16] MEDS: PANTOPRAZOLE 40MG TABLET PO SCH (09:18)
[2018-02-16] MEDS ORDERED: FLUCONAZOLE 100 MG TAB PO ONE (11:06)
--- NOTE | 2018-02-16 12:10 | P.PN ---
Subjective Date of Service: 02/16/18 Chief Complaint: Respiratory distress Patient is on a BiPAP not very responsive intermittent desat hemodynamically stable Review of Systems is unable to be obtained Physical Examination - Vital Signs Temperature: 97 F Blood Pressure: 134/57 Pulse: 72 Respirations: 16 Pulse Ox (%): 90 - Physical Exam General: Unresponsive Neck: Supple Respiratory: Clear to auscultation bilaterally Cardiovascular: Edema (2+ edema) Assessment & Plan - Problems (Diagnosis) (1) Respiratory failure with hypoxia and hypercapnia Onset Date: 02/15/18 Current Visit: Yes Status: Acute Plan: Patient admitted with respiratory failure I have increased CPAP to send to 10 cm continue with antibiotics possible infection on the right side white count is normal creatinine is mildly elevated I have ordered a tsh level that was cancel last visit patient is hypoxic hypercapnic has a CPAP at home patient id probably benefit from an outpatient CPAP titration study to see if she qualifies for a BiPAP Qualifiers: Chronicity: acute on chronic Qualified Code(s): J96.21 - Acute and chronic respiratory failure with hypoxia; J96.22 - Acute and chronic respiratory failure with hypercapnia; J96.22 - Acute and chronic respiratory failure with hypercapnia; J96.22 - Acute and chronic respiratory failure with hypercapnia
[2018-02-16 13:51] LABS: Arterial Blood Carboxyhemoglob 2.4 % (0-1.5); Blood Gas Oxyhemoglobin 78.1 % (94-97); Blood O2 Saturation 81.5 % (92-98.5)
--- NOTE | 2018-02-16 16:34 | PN ---
Date of Progress Note: 02/16/2018 History: The patient seen and examined. Chart reviewed and case discussed with RN. The patient sta blu her breathing is better; however, still continues to be very anxious. Xanax was restarted last n ight. Daughter at bedside, and she is interested in talking to Social Work regarding hospice and DNR . Review of Systems: Negative except as above. Medications: Reviewed. Physical Examination: Vital Signs: Temperature 97, heart rate 72, blood pressure 134/57, respirations 16, O2 90% on BIPAP. CV: S1, S2. No murmurs. Irregular rate and rhythm. Peripheral pulses present. Respiratory: Diminished breath sounds at the bases. Some mild wheezing. Gastrointestinal: Abdomen is soft, nontender, nondistended. Positive bowel sounds. Extremities: No clubbing, cyanosis. Mild edema. Neuro: Nonfocal. General: Awake, alert, oriented x3, in mild distress. Elderly female, morbidly obese. Laboratory Data: Sodium 132, potassium 4.8, chloride 93, CO2 33, BUN 67, creatinine 1.6, glucose 226 , calcium 9.2. WBC 12.5, H and H 9.8, 31.2, platelets 126. Blood cultures, no growth to date. Urin e culture shows 3+ yeast. Sputum Gram-stain, normal quality of respiratory albina. Assessment: A 77-year-old female with: 1.Acute on chronic respiratory failure. The patient doing well on nasal cannula. Does need BiPAP a t night, secondary to chronic obstructive pulmonary disease and congestive heart failure. 2.Pneumonia, right lobe. Blood cultures and sputum cultures negative to-date. Continue antibiotics . Repeat chest x-ray in a.m. 3.Diastolic heart failure exacerbation. Ejection fraction 55%. Continue Lasix and congestive heart failure guidelines. Monitor I's and O's. Fluid restriction. 4.Mild pulmonary hypertension. 5.Morbid obesity, BMI 52.1. 6.Anemia of chronic disease. Monitor H and H, stable. 7.History of deep vein thrombosis and pulmonary embolism. 8.Atrial fibrillation chronic. 9.Dysphagia. 10.Dyslipidemia. Statin. 11.Essential hypertension. Stable. 12.Insomnia. 13.Major depressive disorder. 14.Generalized anxiety disorder. The patient restarted on Xanax may adjust dose. 15.Gastroesophageal reflux disease. PPI. 16.Gastrointestinal and deep venous thrombosis prophylaxis with PPI and Lovenox. Plan: The patient's family interested in DNR and hospice care. We will get Social Work consultation and follow up with family regarding decisions. VU Voice ID: [id number] Report ID: [id number]
[2018-02-16] MEDS: MELATONIN 3 MG TABLET PO SCH (21:56)
[2018-02-17 00:08] VITALS: O2SAT 97
[2018-02-17] MEDS: METHYLPREDNISOLONE 40 MG INJ IV SCH ×2 (00:58→10:07)
[2018-02-17] MEDS: ALBUTEROL 2.5 MG/3 ML NEB SOL NEB SCH ×2 (01:14→08:13)
[2018-02-17] MEDS: IPRATROPIUM BROM 0.5MG/2.5ML NEB SCH ×2 (01:14→08:13)
--- NOTE | 2018-02-17 02:59 | PN ---
Date of Progress Note: 02/15/2018 Ms. Torres was admitted on 02/14/2018. I saw her on 02/14/2018 initially for acute exacerbation of c hronic diastolic congestive heart failure, acute exacerbation of COPD with hypercapnia as well as pne umonia. She has a history of chronic renal disease, atrial fibrillation as well as anemia, came in w ith a creatinine of 1.91. BNP was 706 with troponin of 0.08. She had continued diuresis, has been o n antibiotics. She has mild pulmonary hypertension. Normal ejection fraction, morbid obesity, histo ry of DVT, and pulmonary embolism in the in the past. Today, she has improved dramatically. She is now only on nasal cannula from the BiPAP. She is still hypercapnic with a pO2 of 58, pCO2 of 63. He r white count is 2000. Electrolytes are fairly unremarkable. Her creatinine is down to 1.61 from 1. 91. I feel comfortable with her going to the floor, continue her present regimen, although as sugges hira in my consultation earlier, it may not be unreasonable to change her beta-blockers to Norvasc con sidering her pulmonary situation and her pulmonary hypertension. I will leave that up to Dr. Jennifer bernardo and Dr. Wiseman. I will sign off her case otherwise. KURT/MARY Voice ID: [id number] Report ID: [id number]
[2018-02-17 05:01] LABS: Absolute Lymphocytes (CBC) 0.2 K/uL (0.7-4.9); Absolute Monocytes 0.2 K/uL (0.1-1.3); Absolute Neutrophil 3.6 K/uL (1.8-8.0); Basophils % 0.1 % (0-1.3); Hematocrit 33.5 % (36.0-45.0); Lymphocytes % 5.5 % (15.3-44.8); MCH 26.8 pg (27.0-35.0); MCV 86.9 fL (80-100); MPV 8.5 fL (7.6-11.3); Monocytes % 4.7 % (3.3-12.3); RBC Red Blood Cell Count 3.85 M/uL (3.86-4.86)
[2018-02-17 05:19] LABS: Potassium 4.9 mEq/L (3.6-5.0)
[2018-02-17] MEDS: INSULIN -REGULAR HUMAN 50 UNIT/0.5 ML ML SQ SCH ×2 (07:30→12:12)
--- NOTE | 2018-02-17 09:10 | RAD REPORT ---
EXAM DESCRIPTION: RAD - Chest Single View - 02/17/2018 6:26 am CLINICAL HISTORY: Pneumonia, CHF. COMPARISON: 02/14/2018, 02/09/2018 FINDINGS: Portable technique limits examination quality. Ill-defined opacity is present in the left mid lung in the right mid lung. Left mid lung opacity appe ars new. Right-sided lung opacities appear mildly improved. The heart is mildly moderately enlarged. No displaced fractures.Aortic atherosclerosis. IMPRESSION: Mild improvement in pulmonary opacities suggests mild improvement in pneumonia. Opacity in the left mid lung appears new since comparative study which may represent atelectasis or additiona l area of developing with new infiltrate.
[2018-02-17] MEDS: PSYLLIUM 1 PKT PO SCH (10:04)
[2018-02-17] MEDS: THIAMINE HCL 100 MG TABLET PO SCH (10:04)
[2018-02-17] MEDS: ESCITALOPRAM 20 MG TAB PO SCH (10:05)
[2018-02-17] MEDS: PANTOPRAZOLE 40MG TABLET PO SCH (10:05)
[2018-02-17] MEDS: DOCUSATE NA 100 MG CAP PO SCH (10:05)
[2018-02-17] MEDS: GABAPENTIN 100 MG CAP PO SCH (10:05)
[2018-02-17] MEDS: METOPROLOL TAR 50 MG TAB PO SCH (10:05)
[2018-02-17] MEDS: levoFLOXacin 500 MG TAB PO SCH (10:06)
[2018-02-17] MEDS: SPIRONOLACTONE 100 MG TAB PO SCH (10:06)
[2018-02-17] MEDS: ENOXAPARIN 30 MG/0.3 ML SQ SCH (10:06)
[2018-02-17] MEDS: FUROSEMIDE 40 MG/4 ML VIAL IV SCH (10:06)
[2018-02-17] MEDS: PROMOD 30 ML DOSE PO SCH (10:07)
[2018-02-17 12:11] VITALS: BP 122/71; TEMP 97.3
--- NOTE | 2018-02-18 00:07 | DS ---
Date of Discharge: 02/17/2018 Consultants: Dr. Das with Pulmonology and Dr. Renee with Cardiology. Admitting Diagnoses: 1.Acute on chronic respiratory failure. 2.Pneumonia. 3.Congestive heart failure, ejection fraction 55%. Diastolic dysfunction. 4.Mild pulmonary hypertension. 5.Morbid obesity, body mass index of 52.1. 6.Anemia of chronic disease. 7.History of deep vein thrombosis and pulmonary embolism. 8.Dysphagia. 9.Dyslipidemia. 10.Essential hypertension. 11.Insomnia. 12.Gastroesophageal reflux disease. 13.Major depressive disorder. Discharge Diagnoses: 1.Acute on chronic respiratory failure secondary to chronic obstructive pulmonary disease and conges tive heart failure. 2.Pneumonia, right lobe, improving. 3.Diastolic heart failure exacerbation, ejection fraction 55%, improving. 4.Mild pulmonary hypertension. 5.Morbid obesity. Body mass index 52.1. 6.Anemia of chronic disease. Hemoglobin and hematocrit stable. 7.History of deep vein thrombosis and pulmonary embolism. 8.Atrial fibrillation, chronic. 9.Dysphagia. 10.Dyslipidemia. 11.Essential hypertension. 12.Insomnia. 13.Major depressive disorder. 14.Anxiety disorder. 15.Gastroesophageal reflux disease, proton pump inhibitor. Hospital Course: The patient is a 77-year-old female, resident of [facility], who comes in with sh ortness of breath and confusion. The patient was placed on BiPAP initially as she was acidotic, beth ining CO2. The patient improved with BiPAP. She was moved out of the ICU. Dr. Das with Pulmon ology was consulted. The patient was found to have right lung opacity on chest x-ray and pneumonia o n top of some pulmonary edema secondary to acute diastolic heart failure. The patient was diuresed. She was placed on antibiotics. Cultures were obtained, which were negative. The patient's urine cu lture did however grow yeast, which was treated with Diflucan. The patient improved. Her chest x-ra y also showed improvement. The patient was seen by Dr. Renee with Cardiology as well. The patient was diuresed and responded well to Lasix. The patient's daughter was interested in hospice care, ca ring comfort and spoke with myself and social workers and picked [facility]. The patient was th en cleared for discharge from c consultant's standpoint. Condition: Fair. Activity: Fall precautions. Medications: As per medication reconciliation list. Followup: Follow up with primary care physician in 1 week. Follow up with resident services coordinator, Dr. Faye bolanos in 2 to 4 weeks. Follow up with coiler, Dr. Renee, in 2 to 4 weeks. Return to ER for wor sening condition. Diet: Low-sodium, fluid-restricted diet. Disposition: The patient will be discharged to [facility] with hospice. Physical Examination: General: Awake, alert, oriented, no acute distress, morbidly obese female. CV: S1, S2. No murmurs. Respiratory: Diminished breath sounds at bases, however moving air well, significantly improved. No wheezing. Abdomen: Soft, nontender, nondistended. Positive bowel sounds. Extremities: No clubbing, cyanosis. Peripheral edema, trace. Neuro: Nonfocal. SA/MODL Voice ID: [id number] Report ID: [id number]
== END 2018-02-17 13:38 | disposition hospice, inpatient (51) | DRG 189 ==
LOC: ER 08:38 → ERHOLD 08:55 → 3RD-ICU 12:16 → 4TH 02-15 11:59
PROVIDERS: ADMIT Family Medicine; ATTEND Family Medicine
PROC: 5A09357 Assistance with Respiratory Ventilation, Less than 24 Consecutive Hours, Continuous Positive Airway Pressure (ICD-10-PCS; principal; 2018-02-14)
DX: J96.20 Acute and chronic respiratory failure, unspecified whether with hypoxia or hypercapnia (principal); I50.33 Acute on chronic diastolic (congestive) heart failure; J18.9 Pneumonia, unspecified organism; J44.1 Chronic obstructive pulmonary disease with (acute) exacerbation; E66.2 Morbid (severe) obesity with alveolar hypoventilation; Z68.43 Body mass index [BMI] 50.0-59.9, adult; E11.9 Type 2 diabetes mellitus without complications; J96.22 Acute and chronic respiratory failure with hypercapnia; J96.21 Acute and chronic respiratory failure with hypoxia; E78.5 Hyperlipidemia, unspecified; G47.00 Insomnia, unspecified; K21.9 Gastro-esophageal reflux disease without esophagitis; I27.20 Pulmonary hypertension, unspecified; F32.9 Major depressive disorder, single episode, unspecified; D63.1 Anemia in chronic kidney disease; I48.91 Unspecified atrial fibrillation; R13.10 Dysphagia, unspecified; Z86.718 Personal history of other venous thrombosis and embolism; Z86.711 Personal history of pulmonary embolism
CPT/HCPCS: 36415; 51702; 70450; 71045; 80048; 80076; 81003; 82805; 82962; 83735; 83880; 84443; 84484; 85025; 85610; 85730; 87040; 87070; 87086; 87088; 87205; 93005; 94660; 94760; 99285; J0456; J0696; J1650; J2920